=== PATIENT | male | born 1940 | race Caucasian/White ===

== ENCOUNTER → 2018-07-14 07:54 | Outpatient (CLI) | payer MEDICARE, OTHER, SELFPAY ==
[2018-07-14 09:01] LABS: Add Manual Diff / Slide Review NO; Basophils Percent Auto 1.1 % (0-2); Eosinophils Percent Auto 10.1 % (2-4); Hematocrit 45.9 % (41-53); Hemoglobin 15.5 g/dL (13.5-17.5); Lymphocytes Percent Auto 21.7 % (25-40); Mean Corpuscular HGB Conc 33.8 % (30-36); Mean Corpuscular Hemoglobin 30.4 PG (26-34); Monocytes Percent Auto 9.3 % (3-14); Neutrophils Absolute Auto 4200 /uL (3000-5900); Neutrophils Percent Auto 57.8 % (50-75); Platelet Count 275 X10^3/uL (150-400); Red Cell Distribution Width 15.2 % (11.6-14.8); White Blood Cell Count 7.2 X10^3/uL (4.5-11.0)
[2018-07-14 09:15] LABS: Alanine Aminotransferase 27 IU/L (21-72); Albumin 3.9 g/dL (3.5-5.0); Albumin Globulin Ratio 1.3 (1.0-2.8); Alkaline Phosphatase 93 U/L (38-126); Aspartate Aminotransferase 30 IU/L (17-59); BUN Creatinine Ratio 19.1 (6-22); Bilirubin Total 0.5 mg/dL (0.2-1.3); Blood Urea Nitrogen 21 mg/dL (9-20); Calcium 9.2 mg/dL (8.4-10.2); Carbon Dioxide 30 mmol/L (22-32); Chloride 103 mmol/L (98-107); Cholesterol 196 mg/dL (140-199); Estimated Glomerular Filt Rate > 60.0 mL/min (>60); Glucose 93 mg/dL (80-110); HDL Cholesterol 55 mg/dL (40-60); HEMOLYSIS < 15 (0-50); LDL Cholesterol Calculated 114 mg/dL (<100); Potassium 4.8 mmol/L (3.4-5.1); Sodium 141 mmol/L (137-145); Total Protein 6.9 g/dL (6.3-8.2); Triglycerides 135 mg/dL (35-150)
[2018-07-14 09:42] LABS: Prostate Specific Antigen Scrn 0.422 ng/mL (0.1-4.0)
== END ==
PROVIDERS: PCP Family Medicine; Visit Provider Family Medicine
DX: E78.5 Hyperlipidemia, unspecified (principal); N40.1 Benign prostatic hyperplasia with lower urinary tract symptoms; F52.21 Male erectile disorder; I10 Essential (primary) hypertension
CPT/HCPCS: 36415; 80053; 80061; 85025; G0103

== ENCOUNTER 2019-03-18 06:25 | Emergency (ER) | payer MEDICARE, OTHER, SELFPAY ==
[2019-03-18] VITALS (12 sets, daily range): BP systolic 75–128; BP diastolic 48–95; PULSE 57–188; RESP 16–20; TEMP 36.2; O2SAT 94–100; BMI 27.9
--- NOTE | 2019-03-18 06:37 | DI.RAD.S_ITS ---
PROCEDURE: XR CHEST 1V INDICATIONS: chest pain TECHNIQUE: One view of the chest was acquired. COMPARISON: [facility], , CHEST 2 VIEW, 10/14/2012, 14:27. FINDINGS: Surgical changes and devices: None. Lungs and pleura: No acute consolidation. Scattered subsegmental atelectasis and/or scarring . No pleural effusions or pneumothorax. Mediastinum: Mediastinal contours appear normal. Heart size is normal. Bones and chest wall: No suspicious bony lesions. Overlying soft tissues appear unremarkable. IMPRESSION: No acute disease Dictated by: Hans Valverde M.D. on 03/18/2019 at 9:14 Approved by: Hans Valverde M.D. on 03/18/2019 at 9:15
[2019-03-18] MEDS: ASPIRIN 81 MG TAB 324 MG PO (06:40)
[2019-03-18] MEDS: SODIUM CHLORIDE 0.9% 1,000 ML 1000 ML IV ×2 (06:40→08:01)
[2019-03-18] MEDS: AMIODARONE 150 MG/100 ML PIGGYBACK 600 MG IV (06:47)
--- NOTE | 2019-03-18 06:49 | ED.CHESTPAIN ---
HPI - Chest Pain <Marjorie Hare DO - Last Filed: 03/18/19 18:17> General Chief Complaint: Chest Pain Stated Complaint: burping since 3 am/4 bowel movemnts/chest tight Time Seen by Provider: 03/18/19 06:36 Source: patient Mode of arrival: ambulatory Limitations: no limitations History of Present Illness HPI narrative: A 70-year-old male who presents with chest pain and burping. He says it has been ongoing for the past few hours. He thinks it is just indigestion he has been burping quite a bit. Mild dizziness or lightheadedness. Noted to be in V-tach on the monitor MD complaint: chest pain Duration: constant Onset: during rest Pain location: substernal Related Data Allergies Allergy/AdvReac Type Severity Reaction Status Date / Time No Known Drug Allergies Allergy Verified 03/18/19 07:16 Review of Systems <Marjorie Hare DO - Last Filed: 03/18/19 18:17> Review of Systems GENERAL: Denies chills, fatigue, malaise, fever, sweats, travel HEENT: Denies sinus pain, ear pain, sore throat, difficulty swallowing, neck pain RESPIRATORY: Denies dyspnea, cough, wheezing, hemoptysis, sputum. CARDIOVASCULAR: See HPI GASTROINTESTINAL: Denies nausea, vomiting, abdominal pain, diarrhea, constipation, melena. : Denies dysuria, frequency, incontinence, hematuria, urinary retention, flank pain. MUSCULOSKELETAL: Denies weakness, joint pain, or bony pain SKIN: No rash, no erythema, no pruritus NEUROLOGIC: Denies weakness, dizziness, headache, numbness, change in speech, confusion PSYCHIATRIC: No concerning psychosocial issues. 12 point review of systems is negative except for those stated above and HPI PFSH <Marjorie Hare DO - Last Filed: 03/18/19 18:17> Medical History Hypertension (Acute) Social History Smoking Status: Never smoker Exam <Marjorie Hare DO - Last Filed: 03/18/19 18:17> Initial Vital Signs Initial Vital Signs: Vital Signs Pulse Rate 183 H 03/18/19 06:30 Respiratory Rate 20 03/18/19 06:30 Blood Pressure 75/56 L 03/18/19 06:30 Pulse Oximetry 99 03/18/19 06:30 GENERAL: Alert awake oriented to lessen elderly male no acute distress HEENT: Head atraumatic,EOMI, pupils reactive, face symmetric, moist mucous membranes CARDIOVASCULAR: Tachycardic regular RESPIRATORY: Breath sounds equal bilaterally, no wheezes rales or rhonchi. ABDOMEN: Soft, nontender. Normoactive bowel sounds all 4 quadrants. No guarding or rebound. : No CVA tenderness EXTREMITIES: Normal range of motion, no clubbing or edema. Neurovascularly intact NEUROLOGICAL: Alert and oriented x4.Normal gait and speech. Cranial nerves II through XII grossly intact. SKIN: Warm, dry, no laceration, no petechiae, no rashes or lesions. <Jaquan Polo DO - Last Filed: 03/18/19 08:56> Initial Vital Signs Initial Vital Signs: Vital Signs Pulse Rate 183 H 03/18/19 06:30 Respiratory Rate 20 03/18/19 06:30 Blood Pressure 75/56 L 03/18/19 06:30 Pulse Oximetry 99 03/18/19 06:30 Procedures <Marjorie Hare DO - Last Filed: 03/18/19 18:17> Cardioversion Consent Signed: No Indication: Emergent Cardiac rhythm prior to cardioversion: V-tach Stability: Unstable Number of attempts (shocks): 4 Joules used: 200 Additional Comments: Shock 1. 150J Shock 2, 3, 4:200J Procedural Sedation Patient Age: Patient is 5yrs or older Consent signed: No Time out performed: Yes Indication: cardioversion ASA Class: I Mallampati Airway Classification: Class I Preparation: monitoring analyst applied and IV secured IV Propofol dose (mg): 50 Intraservice time/total sedation time (min): 15 ED Sedation Level: Moderate (Concious) Patient Tolerated Procedure: Well Complications: none Course <DO Pj Lazcano Last Filed: 03/18/19 18:17> Orders Ordered: Discontinued Medications Aspirin (Aspirin Chew) 324 mg PO NOW ONE Stop: 03/18/19 06:37 Last Admin: 03/18/19 06:40 Dose: 324 mg Amiodarone HCl/Dextrose (Nexterone) 150 mg in 100 mls @ 600 mls/hr IV NOW ONE; Protocol Stop: 03/18/19 06:45 Last Infusion: 03/18/19 06:57 Dose: 0 mls/hr Admin: 03/18/19 06:47 Dose: 600 mls/hr Sodium Chloride (Normal Saline 0.9%) 1,000 mls @ 1,000 mls/hr IV CONT CORDELL Last Infusion: 03/18/19 07:56 Dose: 0 mls/hr Admin: 03/18/19 06:40 Dose: 1,000 mls/hr Amiodarone HCl/Dextrose (Nexterone) 360 mg in 200 mls @ 33.333 mls/hr IV NOW ONE; Protocol Stop: 03/18/19 12:38 Last Titration: 03/18/19 09:04 Dose: 60 mg/hr, 33.333 mls/hr Admin: 03/18/19 07:28 Dose: 60 mg/hr, 33.333 mls/hr Sodium Chloride (Normal Saline 0.9%) 1,000 mls @ 1,000 mls/hr IV BOLUS ONE Stop: 03/18/19 08:57 Last Infusion: 03/18/19 09:06 Dose: 125 mls/hr Infusion: 03/18/19 08:35 Dose: 125 mls/hr Admin: 03/18/19 08:01 Dose: 1,000 mls/hr Propofol (Diprivan) 50 mg IV NOW ONE Stop: 03/18/19 06:58 Last Admin: 03/18/19 07:19 Dose: 50 mg Vital Signs - 8 hr 03/18/19 06:30 03/18/19 06:45 03/18/19 07:00 Temperature Pulse Rate 183 H 188 H 162 H Respiratory Rate 20 16 18 Blood Pressure 75/56 L Blood Pressure [Right Arm] 128/95 H 105/62 Pulse Oximetry 99 03/18/19 07:15 03/18/19 07:30 03/18/19 07:40 Temperature Pulse Rate 73 71 70 Respiratory Rate 16 16 18 Blood Pressure Blood Pressure [Right Arm] 87/50 L 100/57 L 95/58 L Pulse Oximetry 94 99 100 03/18/19 07:48 03/18/19 07:53 03/18/19 08:10 Temperature Pulse Rate 67 63 63 Respiratory Rate 18 18 18 Blood Pressure Blood Pressure [Right Arm] 97/50 L 91/48 L 93/56 L Pulse Oximetry 100 100 98 03/18/19 08:12 03/18/19 08:27 03/18/19 08:48 Temperature 97.2 F L Pulse Rate 58 L 57 L Respiratory Rate 16 16 Blood Pressure Blood Pressure [Right Arm] 93/56 L 102/56 L Pulse Oximetry 100 99 <Jaquan Polo DO - Last Filed: 03/18/19 08:56> Course Narrative: received in sign out from Dr. Hare. No change during my oversight. Resting comfortably. I have performed an independent history and physical and have no significant additions to the chart. Expectant arrival of EMS at 0900 for transfer to [facility] Orders Ordered: Discontinued Medications Aspirin (Aspirin Chew) 324 mg PO NOW ONE Stop: 03/18/19 06:37 Last Admin: 03/18/19 06:40 Dose: 324 mg Amiodarone HCl/Dextrose (Nexterone) 150 mg in 100 mls @ 600 mls/hr IV NOW ONE; Protocol Stop: 03/18/19 06:45 Last Infusion: 03/18/19 06:57 Dose: 0 mls/hr Admin: 03/18/19 06:47 Dose: 600 mls/hr Sodium Chloride (Normal Saline 0.9%) 1,000 mls @ 1,000 mls/hr IV CONT CORDELL Last Infusion: 03/18/19 07:56 Dose: 0 mls/hr Admin: 03/18/19 06:40 Dose: 1,000 mls/hr Amiodarone HCl/Dextrose (Nexterone) 360 mg in 200 mls @ 33.333 mls/hr IV NOW ONE; Protocol Stop: 03/18/19 12:38 Last Titration: 03/18/19 09:04 Dose: 60 mg/hr, 33.333 mls/hr Admin: 03/18/19 07:28 Dose: 60 mg/hr, 33.333 mls/hr Sodium Chloride (Normal Saline 0.9%) 1,000 mls @ 1,000 mls/hr IV BOLUS ONE Stop: 03/18/19 08:57 Last Infusion: 03/18/19 09:06 Dose: 125 mls/hr Infusion: 03/18/19 08:35 Dose: 125 mls/hr Admin: 03/18/19 08:01 Dose: 1,000 mls/hr Propofol (Diprivan) 50 mg IV NOW ONE Stop: 03/18/19 06:58 Last Admin: 03/18/19 07:19 Dose: 50 mg Vital Signs - 8 hr 03/18/19 06:30 03/18/19 06:45 03/18/19 07:00 Temperature Pulse Rate 183 H 188 H 162 H Respiratory Rate 20 16 18 Blood Pressure 75/56 L Blood Pressure [Right Arm] 128/95 H 105/62 Pulse Oximetry 99 03/18/19 07:15 03/18/19 07:30 03/18/19 07:40 Temperature Pulse Rate 73 71 70 Respiratory Rate 16 16 18 Blood Pressure Blood Pressure [Right Arm] 87/50 L 100/57 L 95/58 L Pulse Oximetry 94 99 100 03/18/19 07:48 03/18/19 07:53 03/18/19 08:10 Temperature Pulse Rate 67 63 63 Respiratory Rate 18 18 18 Blood Pressure Blood Pressure [Right Arm] 97/50 L 91/48 L 93/56 L Pulse Oximetry 100 100 98 03/18/19 08:12 03/18/19 08:27 03/18/19 08:48 Temperature 97.2 F L Pulse Rate 58 L 57 L Respiratory Rate 16 16 Blood Pressure Blood Pressure [Right Arm] 93/56 L 102/56 L Pulse Oximetry 100 99 MDM - Chest Pain <Marjorie Hare DO - Last Filed: 03/18/19 18:17> Lab Data Attestation: I reviewed the patient's lab results. Result diagrams: 03/18/19 06:30 03/18/19 06:30 Lab Results 03/18/19 03/18/19 03/18/19 Range/Units 06:30 06:30 06:30 WBC 8.6 (4.5-11.0) X10^3/uL RBC 5.41 (4.5-5.9) X10^6/uL Hgb 15.8 (13.5-17.5) g/dL Hct 48.8 (41-53) % MCV 90.3 (80-100) fL MCH 29.2 (26-34) PG MCHC 32.4 (30-36) % RDW 15.3 H (11.6-14.8) % Plt Count 324 (150-400) X10^3/uL Neut % (Auto) 64.1 (50-75) % Lymph % (Auto) 20.6 L (25-40) % [place] % (Auto) 8.5 (3-14) % Eos % (Auto) 5.4 H (2-4) % Baso % (Auto) 1.4 (0-2) % Neut # (Auto) 5500 (6931-5495) /uL Lymph # (Auto) 1800 (8401-8933) /uL [place] # (Auto) 700 (0-900) /uL Eos # (Auto) 500 H (0-450) /uL Baso # (Auto) 100 (0-100) /uL PT 11.0 (10.1-12.7) SECONDS INR 1.0 (0.9-1.3) APTT 30 (26.4-36.2) SECONDS Sodium (137-145) mmol/L Potassium (3.4-5.1) mmol/L Chloride (98-107) mmol/L Carbon Dioxide (22-32) mmol/L BUN (9-20) mg/dL Creatinine (0.66-1.25) mg/dL Estimated GFR (>60) mL/min BUN/Creatinine Ratio (6-22) Glucose (80-110) mg/dL Calcium (8.4-10.2) mg/dL Total Bilirubin (0.2-1.3) mg/dL AST (17-59) IU/L ALT (21-72) IU/L Alkaline Phosphatase (38-126) U/L Total Creatine Kinase (55-170) U/L CK-MB (CK-2) CK-MB (CK-2) Rel Index Troponin I (0.01-0.034) ng/mL B-Natriuretic Peptide < 100 (<100) Total Protein (6.3-8.2) g/dL Albumin (3.5-5.0) g/dL Globulin (1.7-4.1) g/dL Albumin/Globulin Ratio (1.0-2.8) Lipase (23-300) U/L Urine Color Urine Appearance Urine pH (4.5-8.0) Ur Specific [place] (1.000-1.035) Urine Protein (Negative) Urine Glucose (UA) (Negative) g/dL Urine Ketones (NEGATIVE) Urine Occult Blood (Negative) Urine Nitrate (Negative) Urine Bilirubin (NEGATIVE) Urine Urobilinogen (0.2) E.U./dL Ur Leukocyte Esterase (NEGATIVE) Urine RBC (0-5/HPF) Urine WBC (0-5/HPF) Urine Bacteria (None) Hyaline Casts (None) Ur Culture Indicated? 03/18/19 03/18/19 Range/Units 06:30 08:43 WBC (4.5-11.0) X10^3/uL RBC (4.5-5.9) X10^6/uL Hgb (13.5-17.5) g/dL Hct (41-53) % MCV (80-100) fL MCH (26-34) PG MCHC (30-36) % RDW (11.6-14.8) % Plt Count (150-400) X10^3/uL Neut % (Auto) (50-75) % Lymph % (Auto) (25-40) % [place] % (Auto) (3-14) % Eos % (Auto) (2-4) % Baso % (Auto) (0-2) % Neut # (Auto) (8801-7772) /uL Lymph # (Auto) (2855-3500) /uL [place] # (Auto) (0-900) /uL Eos # (Auto) (0-450) /uL Baso # (Auto) (0-100) /uL PT (10.1-12.7) SECONDS INR (0.9-1.3) APTT (26.4-36.2) SECONDS Sodium 137 (137-145) mmol/L Potassium 3.9 (3.4-5.1) mmol/L Chloride 99 (98-107) mmol/L Carbon Dioxide 24 (22-32) mmol/L BUN 18 (9-20) mg/dL Creatinine 1.10 (0.66-1.25) mg/dL Estimated GFR > 60.0 (>60) mL/min BUN/Creatinine Ratio 16.4 (6-22) Glucose 179 H (80-110) mg/dL Calcium 9.1 (8.4-10.2) mg/dL Total Bilirubin 0.5 (0.2-1.3) mg/dL AST 32 (17-59) IU/L ALT 25 (21-72) IU/L Alkaline Phosphatase 108 (38-126) U/L Total Creatine Kinase 46 L (55-170) U/L CK-MB (CK-2) TNP CK-MB (CK-2) Rel Index TNP Troponin I 0.017 (0.01-0.034) ng/mL B-Natriuretic Peptide (<100) Total Protein 7.6 (6.3-8.2) g/dL Albumin 4.3 (3.5-5.0) g/dL Globulin 3.3 (1.7-4.1) g/dL Albumin/Globulin Ratio 1.3 (1.0-2.8) Lipase 182 (23-300) U/L Urine Color Yellow Urine Appearance Clear Urine pH 7.0 (4.5-8.0) Ur Specific [place] 1.015 (1.000-1.035) Urine Protein 1+ H (Negative) Urine Glucose (UA) Negative (Negative) g/dL Urine Ketones Negative (NEGATIVE) Urine Occult Blood Negative (Negative) Urine Nitrate Negative (Negative) Urine Bilirubin Negative (NEGATIVE) Urine Urobilinogen 0.2 (0.2) E.U./dL Ur Leukocyte Esterase Negative (NEGATIVE) Urine RBC 0-1/hpf (0-5/HPF) Urine WBC 0-1/hpf (0-5/HPF) Urine Bacteria Few (2-10) H (None) Hyaline Casts 0-1/lpf (None) Ur Culture Indicated? Cult not indicated Imaging Data Chest x-ray: Attestation: I personally reviewed and interpreted this imaging study as follows: My impression: No acute cardiopulmonary process ECG Data Attestation: I personally reviewed and interpreted this ECG as follows: Prior ECG tracings: not available for review Interpretation: EKG 1. V-tach rate 187 no priors to compare EKG 2. Normal sinus rhythm rate [address] changes MDM Narrative Medical decision making narrative: Dr. ding, cans vacuum tester updated on patient's symptoms test results Um is happy to see patient over at [facility] recommends admitting to hospitalist -accepts patient Patient signed out to Dr. Polo patient will be transferring to [facility] patient is now stable <Jaquan Polo DO - Last Filed: 03/18/19 08:56> Lab Data Lab Results 03/18/19 03/18/19 03/18/19 Range/Units 06:30 06:30 06:30 WBC 8.6 (4.5-11.0) X10^3/uL RBC 5.41 (4.5-5.9) X10^6/uL Hgb 15.8 (13.5-17.5) g/dL Hct 48.8 (41-53) % MCV 90.3 (80-100) fL MCH 29.2 (26-34) PG MCHC 32.4 (30-36) % RDW 15.3 H (11.6-14.8) % Plt Count 324 (150-400) X10^3/uL Neut % (Auto) 64.1 (50-75) % Lymph % (Auto) 20.6 L (25-40) % [place] % (Auto) 8.5 (3-14) % Eos % (Auto) 5.4 H (2-4) % Baso % (Auto) 1.4 (0-2) % Neut # (Auto) 5500 (5199-6547) /uL Lymph # (Auto) 1800 (8208-0746) /uL [place] # (Auto) 700 (0-900) /uL Eos # (Auto) 500 H (0-450) /uL Baso # (Auto) 100 (0-100) /uL PT 11.0 (10.1-12.7) SECONDS INR 1.0 (0.9-1.3) APTT 30 (26.4-36.2) SECONDS Sodium (137-145) mmol/L Potassium (3.4-5.1) mmol/L Chloride (98-107) mmol/L Carbon Dioxide (22-32) mmol/L BUN (9-20) mg/dL Creatinine (0.66-1.25) mg/dL Estimated GFR (>60) mL/min BUN/Creatinine Ratio (6-22) Glucose (80-110) mg/dL Calcium (8.4-10.2) mg/dL Total Bilirubin (0.2-1.3) mg/dL AST (17-59) IU/L ALT (21-72) IU/L Alkaline Phosphatase (38-126) U/L Total Creatine Kinase (55-170) U/L CK-MB (CK-2) CK-MB (CK-2) Rel Index Troponin I (0.01-0.034) ng/mL B-Natriuretic Peptide < 100 (<100) Total Protein (6.3-8.2) g/dL Albumin (3.5-5.0) g/dL Globulin (1.7-4.1) g/dL Albumin/Globulin Ratio (1.0-2.8) Lipase (23-300) U/L Urine Color Urine Appearance Urine pH (4.5-8.0) Ur Specific [place] (1.000-1.035) Urine Protein (Negative) Urine Glucose (UA) (Negative) g/dL Urine Ketones (NEGATIVE) Urine Occult Blood (Negative) Urine Nitrate (Negative) Urine Bilirubin (NEGATIVE) Urine Urobilinogen (0.2) E.U./dL Ur Leukocyte Esterase (NEGATIVE) Urine RBC (0-5/HPF) Urine WBC (0-5/HPF) Urine Bacteria (None) Hyaline Casts (None) Ur Culture Indicated? 03/18/19 03/18/19 Range/Units 06:30 08:43 WBC (4.5-11.0) X10^3/uL RBC (4.5-5.9) X10^6/uL Hgb (13.5-17.5) g/dL Hct (41-53) % MCV (80-100) fL MCH (26-34) PG MCHC (30-36) % RDW (11.6-14.8) % Plt Count (150-400) X10^3/uL Neut % (Auto) (50-75) % Lymph % (Auto) (25-40) % [place] % (Auto) (3-14) % Eos % (Auto) (2-4) % Baso % (Auto) (0-2) % Neut # (Auto) (0237-1272) /uL Lymph # (Auto) (5615-0517) /uL [place] # (Auto) (0-900) /uL Eos # (Auto) (0-450) /uL Baso # (Auto) (0-100) /uL PT (10.1-12.7) SECONDS INR (0.9-1.3) APTT (26.4-36.2) SECONDS Sodium 137 (137-145) mmol/L Potassium 3.9 (3.4-5.1) mmol/L Chloride 99 (98-107) mmol/L Carbon Dioxide 24 (22-32) mmol/L BUN 18 (9-20) mg/dL Creatinine 1.10 (0.66-1.25) mg/dL Estimated GFR > 60.0 (>60) mL/min BUN/Creatinine Ratio 16.4 (6-22) Glucose 179 H (80-110) mg/dL Calcium 9.1 (8.4-10.2) mg/dL Total Bilirubin 0.5 (0.2-1.3) mg/dL AST 32 (17-59) IU/L ALT 25 (21-72) IU/L Alkaline Phosphatase 108 (38-126) U/L Total Creatine Kinase 46 L (55-170) U/L CK-MB (CK-2) TNP CK-MB (CK-2) Rel Index TNP Troponin I 0.017 (0.01-0.034) ng/mL B-Natriuretic Peptide (<100) Total Protein 7.6 (6.3-8.2) g/dL Albumin 4.3 (3.5-5.0) g/dL Globulin 3.3 (1.7-4.1) g/dL Albumin/Globulin Ratio 1.3 (1.0-2.8) Lipase 182 (23-300) U/L Urine Color Yellow Urine Appearance Clear Urine pH 7.0 (4.5-8.0) Ur Specific [place] 1.015 (1.000-1.035) Urine Protein 1+ H (Negative) Urine Glucose (UA) Negative (Negative) g/dL Urine Ketones Negative (NEGATIVE) Urine Occult Blood Negative (Negative) Urine Nitrate Negative (Negative) Urine Bilirubin Negative (NEGATIVE) Urine Urobilinogen 0.2 (0.2) E.U./dL Ur Leukocyte Esterase Negative (NEGATIVE) Urine RBC 0-1/hpf (0-5/HPF) Urine WBC 0-1/hpf (0-5/HPF) Urine Bacteria Few (2-10) H (None) Hyaline Casts 0-1/lpf (None) Ur Culture Indicated? Cult not indicated Critical Care Time <Marjorie Hare DO - Last Filed: 03/18/19 18:17> Critical Care Time: Yes Total Critical Care Time: 30 Attestation: The high probability of a clinically significant, sudden or life threatening deterioration of the [cardiovascular] system(s) required my full and direct attention, intervention and personal management. The aggregate critical care time was 30 minutes. This time is in addition to time spent performing reported procedures but includes the following: [x] Data Review and interpretation [x] Patient assessment and monitoring of vital signs [x] Documentation [x] Medication orders and management Discharge Plan Departure Patient Disposition: [facility] Clinical Impression: Ventricular tachycardia Discharge Date/Time: 03/18/19 09:09 Interventions: ED Discharge Assessment Last Done: 03/18/19 09:06 Referrals: Shailesh Wilson MD [Primary Care Provider] -
[2019-03-18 06:52] LABS: Add Manual Diff / Slide Review NO; Basophils Absolute Auto 100 /uL (0-100); Basophils Percent Auto 1.4 % (0-2); Eosinophils Absolute Auto 500 /uL (0-450); Eosinophils Percent Auto 5.4 % (2-4); Hematocrit 48.8 % (41-53); Hemoglobin 15.8 g/dL (13.5-17.5); Lymphocytes Absolute Auto 1800 /uL (1100-4500); Lymphocytes Percent Auto 20.6 % (25-40); Mean Corpuscular HGB Conc 32.4 % (30-36); Mean Corpuscular Hemoglobin 29.2 PG (26-34); Mean Corpuscular Volume 90.3 fL (80-100); Monocytes Absolute Auto 700 /uL (0-900); Monocytes Percent Auto 8.5 % (3-14); Neutrophils Absolute Auto 5500 /uL (1500-7000); Neutrophils Percent Auto 64.1 % (50-75); Platelet Count 324 X10^3/uL (150-400); Red Blood Cell Count 5.41 X10^6/uL (4.5-5.9); Red Cell Distribution Width 15.3 % (11.6-14.8); White Blood Cell Count 8.6 X10^3/uL (4.5-11.0)
--- NOTE | 2019-03-18 06:52 | ED_ITS ---
HPI - Chest Pain <Marjorie Hare DO - Last Filed: 03/18/19 18:17> General Chief Complaint: Chest Pain Stated Complaint: burping since 3 am/4 bowel movemnts/chest tight Time Seen by Provider: 03/18/19 06:36 Source: patient Mode of arrival: ambulatory Limitations: no limitations History of Present Illness HPI narrative: A 70-year-old male who presents with chest pain and burping. He says it has been ongoing for the past few hours. He thinks it is just indigestion he has been burping quite a bit. Mild dizziness or lightheadedness. Noted to be in V-tach on the monitor MD complaint: chest pain Duration: constant Onset: during rest Pain location: substernal Related Data Allergies Allergy/AdvReac Type Severity Reaction Status Date / Time No Known Drug Allergies Allergy Verified 03/18/19 07:16 Review of Systems <Marjorie Hare DO - Last Filed: 03/18/19 18:17> Review of Systems GENERAL: Denies chills, fatigue, malaise, fever, sweats, travel HEENT: Denies sinus pain, ear pain, sore throat, difficulty swallowing, neck pain RESPIRATORY: Denies dyspnea, cough, wheezing, hemoptysis, sputum. CARDIOVASCULAR: See HPI GASTROINTESTINAL: Denies nausea, vomiting, abdominal pain, diarrhea, constipation, melena. : Denies dysuria, frequency, incontinence, hematuria, urinary retention, flank pain. MUSCULOSKELETAL: Denies weakness, joint pain, or bony pain SKIN: No rash, no erythema, no pruritus NEUROLOGIC: Denies weakness, dizziness, headache, numbness, change in speech, confusion PSYCHIATRIC: No concerning psychosocial issues. 12 point review of systems is negative except for those stated above and HPI PFSH <Marjorie Hare DO - Last Filed: 03/18/19 18:17> Medical History Hypertension (Acute) Social History Smoking Status: Never smoker Exam <Marjorie Hare DO - Last Filed: 03/18/19 18:17> Initial Vital Signs Initial Vital Signs: Vital Signs Pulse Rate 183 H 03/18/19 06:30 Respiratory Rate 20 03/18/19 06:30 Blood Pressure 75/56 L 03/18/19 06:30 Pulse Oximetry 99 03/18/19 06:30 GENERAL: Alert awake oriented to lessen elderly male no acute distress HEENT: Head atraumatic,EOMI, pupils reactive, face symmetric, moist mucous membranes CARDIOVASCULAR: Tachycardic regular RESPIRATORY: Breath sounds equal bilaterally, no wheezes rales or rhonchi. ABDOMEN: Soft, nontender. Normoactive bowel sounds all 4 quadrants. No guarding or rebound. : No CVA tenderness EXTREMITIES: Normal range of motion, no clubbing or edema. Neurovascularly intact NEUROLOGICAL: Alert and oriented x4.Normal gait and speech. Cranial nerves II through XII grossly intact. SKIN: Warm, dry, no laceration, no petechiae, no rashes or lesions. <Jaquan Polo DO - Last Filed: 03/18/19 08:56> Initial Vital Signs Initial Vital Signs: Vital Signs Pulse Rate 183 H 03/18/19 06:30 Respiratory Rate 20 03/18/19 06:30 Blood Pressure 75/56 L 03/18/19 06:30 Pulse Oximetry 99 03/18/19 06:30 Procedures <Marjorie Hare DO - Last Filed: 03/18/19 18:17> Cardioversion Consent Signed: No Indication: Emergent Cardiac rhythm prior to cardioversion: V-tach Stability: Unstable Number of attempts (shocks): 4 Joules used: 200 Additional Comments: Shock 1. 150J Shock 2, 3, 4:200J Procedural Sedation Patient Age: Patient is 5yrs or older Consent signed: No Time out performed: Yes Indication: cardioversion ASA Class: I Mallampati Airway Classification: Class I Preparation: pvc monitor applied and IV secured IV Propofol dose (mg): 50 Intraservice time/total sedation time (min): 15 ED Sedation Level: Moderate (Concious) Patient Tolerated Procedure: Well Complications: none Course <DO Pj Lazcano Last Filed: 03/18/19 18:17> Orders Ordered: Discontinued Medications Aspirin (Aspirin Chew) 324 mg PO NOW ONE Stop: 03/18/19 06:37 Last Admin: 03/18/19 06:40 Dose: 324 mg Amiodarone HCl/Dextrose (Nexterone) 150 mg in 100 mls @ 600 mls/hr IV NOW ONE; Protocol Stop: 03/18/19 06:45 Last Infusion: 03/18/19 06:57 Dose: 0 mls/hr Admin: 03/18/19 06:47 Dose: 600 mls/hr Sodium Chloride (Normal Saline 0.9%) 1,000 mls @ 1,000 mls/hr IV CONT CORDELL Last Infusion: 03/18/19 07:56 Dose: 0 mls/hr Admin: 03/18/19 06:40 Dose: 1,000 mls/hr Amiodarone HCl/Dextrose (Nexterone) 360 mg in 200 mls @ 33.333 mls/hr IV NOW ONE; Protocol Stop: 03/18/19 12:38 Last Titration: 03/18/19 09:04 Dose: 60 mg/hr, 33.333 mls/hr Admin: 03/18/19 07:28 Dose: 60 mg/hr, 33.333 mls/hr Sodium Chloride (Normal Saline 0.9%) 1,000 mls @ 1,000 mls/hr IV BOLUS ONE Stop: 03/18/19 08:57 Last Infusion: 03/18/19 09:06 Dose: 125 mls/hr Infusion: 03/18/19 08:35 Dose: 125 mls/hr Admin: 03/18/19 08:01 Dose: 1,000 mls/hr Propofol (Diprivan) 50 mg IV NOW ONE Stop: 03/18/19 06:58 Last Admin: 03/18/19 07:19 Dose: 50 mg Vital Signs - 8 hr 03/18/19 06:30 03/18/19 06:45 03/18/19 07:00 Temperature Pulse Rate 183 H 188 H 162 H Respiratory Rate 20 16 18 Blood Pressure 75/56 L Blood Pressure [Right Arm] 128/95 H 105/62 Pulse Oximetry 99 03/18/19 07:15 03/18/19 07:30 03/18/19 07:40 Temperature Pulse Rate 73 71 70 Respiratory Rate 16 16 18 Blood Pressure Blood Pressure [Right Arm] 87/50 L 100/57 L 95/58 L Pulse Oximetry 94 99 100 03/18/19 07:48 03/18/19 07:53 03/18/19 08:10 Temperature Pulse Rate 67 63 63 Respiratory Rate 18 18 18 Blood Pressure Blood Pressure [Right Arm] 97/50 L 91/48 L 93/56 L Pulse Oximetry 100 100 98 03/18/19 08:12 03/18/19 08:27 03/18/19 08:48 Temperature 97.2 F L Pulse Rate 58 L 57 L Respiratory Rate 16 16 Blood Pressure Blood Pressure [Right Arm] 93/56 L 102/56 L Pulse Oximetry 100 99 <Jaquan Polo DO - Last Filed: 03/18/19 08:56> Course Narrative: received in sign out from Dr. Hare. No change during my oversight. Resting comfortably. I have performed an independent history and physical and have no significant additions to the chart. Expectant arrival of EMS at 0900 for transfer to [facility] Orders Ordered: Discontinued Medications Aspirin (Aspirin Chew) 324 mg PO NOW ONE Stop: 03/18/19 06:37 Last Admin: 03/18/19 06:40 Dose: 324 mg Amiodarone HCl/Dextrose (Nexterone) 150 mg in 100 mls @ 600 mls/hr IV NOW ONE; Protocol Stop: 03/18/19 06:45 Last Infusion: 03/18/19 06:57 Dose: 0 mls/hr Admin: 03/18/19 06:47 Dose: 600 mls/hr Sodium Chloride (Normal Saline 0.9%) 1,000 mls @ 1,000 mls/hr IV CONT CORDELL Last Infusion: 03/18/19 07:56 Dose: 0 mls/hr Admin: 03/18/19 06:40 Dose: 1,000 mls/hr Amiodarone HCl/Dextrose (Nexterone) 360 mg in 200 mls @ 33.333 mls/hr IV NOW ONE; Protocol Stop: 03/18/19 12:38 Last Titration: 03/18/19 09:04 Dose: 60 mg/hr, 33.333 mls/hr Admin: 03/18/19 07:28 Dose: 60 mg/hr, 33.333 mls/hr Sodium Chloride (Normal Saline 0.9%) 1,000 mls @ 1,000 mls/hr IV BOLUS ONE Stop: 03/18/19 08:57 Last Infusion: 03/18/19 09:06 Dose: 125 mls/hr Infusion: 03/18/19 08:35 Dose: 125 mls/hr Admin: 03/18/19 08:01 Dose: 1,000 mls/hr Propofol (Diprivan) 50 mg IV NOW ONE Stop: 03/18/19 06:58 Last Admin: 03/18/19 07:19 Dose: 50 mg Vital Signs - 8 hr 03/18/19 06:30 03/18/19 06:45 03/18/19 07:00 Temperature Pulse Rate 183 H 188 H 162 H Respiratory Rate 20 16 18 Blood Pressure 75/56 L Blood Pressure [Right Arm] 128/95 H 105/62 Pulse Oximetry 99 03/18/19 07:15 03/18/19 07:30 03/18/19 07:40 Temperature Pulse Rate 73 71 70 Respiratory Rate 16 16 18 Blood Pressure Blood Pressure [Right Arm] 87/50 L 100/57 L 95/58 L Pulse Oximetry 94 99 100 03/18/19 07:48 03/18/19 07:53 03/18/19 08:10 Temperature Pulse Rate 67 63 63 Respiratory Rate 18 18 18 Blood Pressure Blood Pressure [Right Arm] 97/50 L 91/48 L 93/56 L Pulse Oximetry 100 100 98 03/18/19 08:12 03/18/19 08:27 03/18/19 08:48 Temperature 97.2 F L Pulse Rate 58 L 57 L Respiratory Rate 16 16 Blood Pressure Blood Pressure [Right Arm] 93/56 L 102/56 L Pulse Oximetry 100 99 MDM - Chest Pain <Marjorie Hare DO - Last Filed: 03/18/19 18:17> Lab Data Attestation: I reviewed the patient's lab results. Result diagrams: 03/18/19 06:30 03/18/19 06:30 Lab Results 03/18/19 03/18/19 03/18/19 Range/Units 06:30 06:30 06:30 WBC 8.6 (4.5-11.0) X10^3/uL RBC 5.41 (4.5-5.9) X10^6/uL Hgb 15.8 (13.5-17.5) g/dL Hct 48.8 (41-53) % MCV 90.3 (80-100) fL MCH 29.2 (26-34) PG MCHC 32.4 (30-36) % RDW 15.3 H (11.6-14.8) % Plt Count 324 (150-400) X10^3/uL Neut % (Auto) 64.1 (50-75) % Lymph % (Auto) 20.6 L (25-40) % [place] % (Auto) 8.5 (3-14) % Eos % (Auto) 5.4 H (2-4) % Baso % (Auto) 1.4 (0-2) % Neut # (Auto) 5500 (8880-7800) /uL Lymph # (Auto) 1800 (8981-7534) /uL [place] # (Auto) 700 (0-900) /uL Eos # (Auto) 500 H (0-450) /uL Baso # (Auto) 100 (0-100) /uL PT 11.0 (10.1-12.7) SECONDS INR 1.0 (0.9-1.3) APTT 30 (26.4-36.2) SECONDS Sodium (137-145) mmol/L Potassium (3.4-5.1) mmol/L Chloride (98-107) mmol/L Carbon Dioxide (22-32) mmol/L BUN (9-20) mg/dL Creatinine (0.66-1.25) mg/dL Estimated GFR (>60) mL/min BUN/Creatinine Ratio (6-22) Glucose (80-110) mg/dL Calcium (8.4-10.2) mg/dL Total Bilirubin (0.2-1.3) mg/dL AST (17-59) IU/L ALT (21-72) IU/L Alkaline Phosphatase (38-126) U/L Total Creatine Kinase (55-170) U/L CK-MB (CK-2) CK-MB (CK-2) Rel Index Troponin I (0.01-0.034) ng/mL B-Natriuretic Peptide < 100 (<100) Total Protein (6.3-8.2) g/dL Albumin (3.5-5.0) g/dL Globulin (1.7-4.1) g/dL Albumin/Globulin Ratio (1.0-2.8) Lipase (23-300) U/L Urine Color Urine Appearance Urine pH (4.5-8.0) Ur Specific [place] (1.000-1.035) Urine Protein (Negative) Urine Glucose (UA) (Negative) g/dL Urine Ketones (NEGATIVE) Urine Occult Blood (Negative) Urine Nitrate (Negative) Urine Bilirubin (NEGATIVE) Urine Urobilinogen (0.2) E.U./dL Ur Leukocyte Esterase (NEGATIVE) Urine RBC (0-5/HPF) Urine WBC (0-5/HPF) Urine Bacteria (None) Hyaline Casts (None) Ur Culture Indicated? 03/18/19 03/18/19 Range/Units 06:30 08:43 WBC (4.5-11.0) X10^3/uL RBC (4.5-5.9) X10^6/uL Hgb (13.5-17.5) g/dL Hct (41-53) % MCV (80-100) fL MCH (26-34) PG MCHC (30-36) % RDW (11.6-14.8) % Plt Count (150-400) X10^3/uL Neut % (Auto) (50-75) % Lymph % (Auto) (25-40) % [place] % (Auto) (3-14) % Eos % (Auto) (2-4) % Baso % (Auto) (0-2) % Neut # (Auto) (3555-0617) /uL Lymph # (Auto) (8530-4155) /uL [place] # (Auto) (0-900) /uL Eos # (Auto) (0-450) /uL Baso # (Auto) (0-100) /uL PT (10.1-12.7) SECONDS INR (0.9-1.3) APTT (26.4-36.2) SECONDS Sodium 137 (137-145) mmol/L Potassium 3.9 (3.4-5.1) mmol/L Chloride 99 (98-107) mmol/L Carbon Dioxide 24 (22-32) mmol/L BUN 18 (9-20) mg/dL Creatinine 1.10 (0.66-1.25) mg/dL Estimated GFR > 60.0 (>60) mL/min BUN/Creatinine Ratio 16.4 (6-22) Glucose 179 H (80-110) mg/dL Calcium 9.1 (8.4-10.2) mg/dL Total Bilirubin 0.5 (0.2-1.3) mg/dL AST 32 (17-59) IU/L ALT 25 (21-72) IU/L Alkaline Phosphatase 108 (38-126) U/L Total Creatine Kinase 46 L (55-170) U/L CK-MB (CK-2) TNP CK-MB (CK-2) Rel Index TNP Troponin I 0.017 (0.01-0.034) ng/mL B-Natriuretic Peptide (<100) Total Protein 7.6 (6.3-8.2) g/dL Albumin 4.3 (3.5-5.0) g/dL Globulin 3.3 (1.7-4.1) g/dL Albumin/Globulin Ratio 1.3 (1.0-2.8) Lipase 182 (23-300) U/L Urine Color Yellow Urine Appearance Clear Urine pH 7.0 (4.5-8.0) Ur Specific [place] 1.015 (1.000-1.035) Urine Protein 1+ H (Negative) Urine Glucose (UA) Negative (Negative) g/dL Urine Ketones Negative (NEGATIVE) Urine Occult Blood Negative (Negative) Urine Nitrate Negative (Negative) Urine Bilirubin Negative (NEGATIVE) Urine Urobilinogen 0.2 (0.2) E.U./dL Ur Leukocyte Esterase Negative (NEGATIVE) Urine RBC 0-1/hpf (0-5/HPF) Urine WBC 0-1/hpf (0-5/HPF) Urine Bacteria Few (2-10) H (None) Hyaline Casts 0-1/lpf (None) Ur Culture Indicated? Cult not indicated Imaging Data Chest x-ray: Attestation: I personally reviewed and interpreted this imaging study as follows: My impression: No acute cardiopulmonary process ECG Data Attestation: I personally reviewed and interpreted this ECG as follows: Prior ECG tracings: not available for review Interpretation: EKG 1. V-tach rate 187 no priors to compare EKG 2. Normal sinus rhythm rate [address] changes MDM Narrative Medical decision making narrative: Dr. ding, industrial maintenance tech updated on patient's symptoms test results Um is happy to see patient over at [facility] recommends admitting to hospitalist -accepts patient Patient signed out to Dr. Polo patient will be transferring to [facility] patient is now stable <Jaquan Polo DO - Last Filed: 03/18/19 08:56> Lab Data Lab Results 03/18/19 03/18/19 03/18/19 Range/Units 06:30 06:30 06:30 WBC 8.6 (4.5-11.0) X10^3/uL RBC 5.41 (4.5-5.9) X10^6/uL Hgb 15.8 (13.5-17.5) g/dL Hct 48.8 (41-53) % MCV 90.3 (80-100) fL MCH 29.2 (26-34) PG MCHC 32.4 (30-36) % RDW 15.3 H (11.6-14.8) % Plt Count 324 (150-400) X10^3/uL Neut % (Auto) 64.1 (50-75) % Lymph % (Auto) 20.6 L (25-40) % [place] % (Auto) 8.5 (3-14) % Eos % (Auto) 5.4 H (2-4) % Baso % (Auto) 1.4 (0-2) % Neut # (Auto) 5500 (3545-8621) /uL Lymph # (Auto) 1800 (7781-9973) /uL [place] # (Auto) 700 (0-900) /uL Eos # (Auto) 500 H (0-450) /uL Baso # (Auto) 100 (0-100) /uL PT 11.0 (10.1-12.7) SECONDS INR 1.0 (0.9-1.3) APTT 30 (26.4-36.2) SECONDS Sodium (137-145) mmol/L Potassium (3.4-5.1) mmol/L Chloride (98-107) mmol/L Carbon Dioxide (22-32) mmol/L BUN (9-20) mg/dL Creatinine (0.66-1.25) mg/dL Estimated GFR (>60) mL/min BUN/Creatinine Ratio (6-22) Glucose (80-110) mg/dL Calcium (8.4-10.2) mg/dL Total Bilirubin (0.2-1.3) mg/dL AST (17-59) IU/L ALT (21-72) IU/L Alkaline Phosphatase (38-126) U/L Total Creatine Kinase (55-170) U/L CK-MB (CK-2) CK-MB (CK-2) Rel Index Troponin I (0.01-0.034) ng/mL B-Natriuretic Peptide < 100 (<100) Total Protein (6.3-8.2) g/dL Albumin (3.5-5.0) g/dL Globulin (1.7-4.1) g/dL Albumin/Globulin Ratio (1.0-2.8) Lipase (23-300) U/L Urine Color Urine Appearance Urine pH (4.5-8.0) Ur Specific [place] (1.000-1.035) Urine Protein (Negative) Urine Glucose (UA) (Negative) g/dL Urine Ketones (NEGATIVE) Urine Occult Blood (Negative) Urine Nitrate (Negative) Urine Bilirubin (NEGATIVE) Urine Urobilinogen (0.2) E.U./dL Ur Leukocyte Esterase (NEGATIVE) Urine RBC (0-5/HPF) Urine WBC (0-5/HPF) Urine Bacteria (None) Hyaline Casts (None) Ur Culture Indicated? 03/18/19 03/18/19 Range/Units 06:30 08:43 WBC (4.5-11.0) X10^3/uL RBC (4.5-5.9) X10^6/uL Hgb (13.5-17.5) g/dL Hct (41-53) % MCV (80-100) fL MCH (26-34) PG MCHC (30-36) % RDW (11.6-14.8) % Plt Count (150-400) X10^3/uL Neut % (Auto) (50-75) % Lymph % (Auto) (25-40) % [place] % (Auto) (3-14) % Eos % (Auto) (2-4) % Baso % (Auto) (0-2) % Neut # (Auto) (4414-3484) /uL Lymph # (Auto) (9705-4003) /uL [place] # (Auto) (0-900) /uL Eos # (Auto) (0-450) /uL Baso # (Auto) (0-100) /uL PT (10.1-12.7) SECONDS INR (0.9-1.3) APTT (26.4-36.2) SECONDS Sodium 137 (137-145) mmol/L Potassium 3.9 (3.4-5.1) mmol/L Chloride 99 (98-107) mmol/L Carbon Dioxide 24 (22-32) mmol/L BUN 18 (9-20) mg/dL Creatinine 1.10 (0.66-1.25) mg/dL Estimated GFR > 60.0 (>60) mL/min BUN/Creatinine Ratio 16.4 (6-22) Glucose 179 H (80-110) mg/dL Calcium 9.1 (8.4-10.2) mg/dL Total Bilirubin 0.5 (0.2-1.3) mg/dL AST 32 (17-59) IU/L ALT 25 (21-72) IU/L Alkaline Phosphatase 108 (38-126) U/L Total Creatine Kinase 46 L (55-170) U/L CK-MB (CK-2) TNP CK-MB (CK-2) Rel Index TNP Troponin I 0.017 (0.01-0.034) ng/mL B-Natriuretic Peptide (<100) Total Protein 7.6 (6.3-8.2) g/dL Albumin 4.3 (3.5-5.0) g/dL Globulin 3.3 (1.7-4.1) g/dL Albumin/Globulin Ratio 1.3 (1.0-2.8) Lipase 182 (23-300) U/L Urine Color Yellow Urine Appearance Clear Urine pH 7.0 (4.5-8.0) Ur Specific [place] 1.015 (1.000-1.035) Urine Protein 1+ H (Negative) Urine Glucose (UA) Negative (Negative) g/dL Urine Ketones Negative (NEGATIVE) Urine Occult Blood Negative (Negative) Urine Nitrate Negative (Negative) Urine Bilirubin Negative (NEGATIVE) Urine Urobilinogen 0.2 (0.2) E.U./dL Ur Leukocyte Esterase Negative (NEGATIVE) Urine RBC 0-1/hpf (0-5/HPF) Urine WBC 0-1/hpf (0-5/HPF) Urine Bacteria Few (2-10) H (None) Hyaline Casts 0-1/lpf (None) Ur Culture Indicated? Cult not indicated Critical Care Time <Marjorie Hare DO - Last Filed: 03/18/19 18:17> Critical Care Time: Yes Total Critical Care Time: 30 Attestation: The high probability of a clinically significant, sudden or life threatening deterioration of the [cardiovascular] system(s) required my full and direct attention, intervention and personal management. The aggregate critical care time was 30 minutes. This time is in addition to time spent performing repo rted procedures but includes the following: [x] Data Review and interpretation [x] Patient assessment and monitoring of vital signs [x] Documentation [x] Medication orders and management Discharge Plan Departure Patient Disposition: [facility] Clinical Impression: Ventricular tachycardia Discharge Date/Time: 03/18/19 09:09 Interventions: ED Discharge Assessment Last Done: 03/18/19 09:06 Referrals: Shailesh Wilson MD [Primary Care Provider] -
[2019-03-18 06:59] LABS: PTT Partial Thromboplastin Tim 30 SECONDS (26.4-36.2)
[2019-03-18 07:01] LABS: Alanine Aminotransferase 25 IU/L (21-72); Albumin 4.3 g/dL (3.5-5.0); Albumin Globulin Ratio 1.3 (1.0-2.8); Alkaline Phosphatase 108 U/L (38-126); Aspartate Aminotransferase 32 IU/L (17-59); BUN Creatinine Ratio 16.4 (6-22); Bilirubin Total 0.5 mg/dL (0.2-1.3); Blood Urea Nitrogen 18 mg/dL (9-20); Calcium 9.1 mg/dL (8.4-10.2); Carbon Dioxide 24 mmol/L (22-32); Chloride 99 mmol/L (98-107); Creatine Kinase 46 U/L (55-170); Estimated Glomerular Filt Rate > 60.0 mL/min (>60); Globulin 3.3 g/dL (1.7-4.1); Glucose 179 mg/dL (80-110); HEMOLYSIS < 15 (0-50); Lipase 182 U/L (23-300); Potassium 3.9 mmol/L (3.4-5.1); Sodium 137 mmol/L (137-145); Total Protein 7.6 g/dL (6.3-8.2)
[2019-03-18 07:10] LABS: B Type Natriuretic Peptide < 100 (<100)
[2019-03-18 07:13] LABS: Troponin I 0.017 ng/mL (0.01-0.034)
[2019-03-18] MEDS: PROPOFOL 200 MG/20 ML VIAL 50 MG IV (07:19)
[2019-03-18] MEDS: AMIODARONE 360 MG/200 ML PIGGYBACK 33.333 MG IV (07:28)
--- NOTE | 2019-03-18 07:32 | PC.NURSE ---
pt alert and awake, c/o indigestion, monitor vt 165
--- NOTE | 2019-03-18 07:33 | PC.NURSE ---
0657 pt alert and awake, c/o indigestion, monitor vt 165. bp 84/56 amniodarone `150mg infusing over 10 minutes per manny rn. 0658 profopol 50[address] given [address] dr smith ivps right wrist. shock 150Joules remain vt 158 shock 200 J vt 158 shock 200 J vt 150 0700 shock 200 convert to sinus 88 bp 105/62 98% with 2lpm via nc, nsr 76 0707 bp 92/57 nsr 0 0714 pt awake, oriented to place and time, still has indigestion 88/51 hr 71 sat 98% 0728 amniodarone gtt at 33.3ml hr. aspirin 324mg given at 0647 by manny.
--- NOTE | 2019-03-18 07:50 | PC.NURSE ---
reporting burping feeling. monitor nsr 65
--- NOTE | 2019-03-18 08:16 | PC.NURSE ---
pt reports, at 3am, indigestion, burping. took tums,omeprazole,rajni,gas x. hx of dizziness a year ago. pt with burping causing vt
--- NOTE | 2019-03-18 08:47 | PC.NURSE ---
pt able to stand to use urinal, voided 150ml dark yellow urine.
[2019-03-18 08:56] LABS: Appearance Urine UA CLEAR; Bilirubin Urine UA NEGATIVE (NEGATIVE); Color Urine UA YELLOW; Glucose Urine UA NEGATIVE (Negative); Ketones Urine UA NEGATIVE (NEGATIVE); Leukocyte Esterase Urine UA NEGATIVE (NEGATIVE); Nitrite Urine UA NEGATIVE (Negative); Occult Blood Urine UA NEGATIVE (Negative); Protein Urine UA 1+ (Negative); Specific Gravity Urine UA 1.015 (1.000-1.035); Urobilinogen Urine UA 0.2 E.U./dL (0.2)
[2019-03-18 09:05] LABS: Bacteria Urine Few (2-10); Hyaline Casts Urine 0-1/LPF; RBC Urine 0-1/HPF (0-5/HPF); WBC Urine 0-1/HPF (0-5/HPF)
[2019-03-18 09:06] LABS: Culture Indicated Urine Cult Not Indicated
--- NOTE | 2019-03-18 09:08 | PC.NURSE ---
spouse taking personal belonging home, pt keeping cellphone and glasses, pair of pants.
--- NOTE | 2019-03-18 09:09 | PC.NURSE ---
pt left with pair of socks and shoes.
== END 2019-03-18 09:09 | disposition short-term general hospital (02) ==
PROVIDERS: Emergency Medicine; Emergency Provider Emergency Medicine; Family Provider Family Medicine; PCP Family Medicine
DX: I47.2 Ventricular tachycardia (principal); R07.9 Chest pain, unspecified; R42 Dizziness and giddiness
CPT/HCPCS: 36591; 71045; 80053; 81001; 82550; 83690; 83880; 84484; 85025; 85610; 85730; 92960; 93005; 96361; 96365; 96366; 96375; 99152; 99285; 99291; J0282; J2704

== ENCOUNTER → 2020-12-01 16:54 | Outpatient (CLI) | payer MEDICARE, OTHER, SELFPAY ==
[2020-12-01] MEDS: COVID-19 VACC #1, MRNA(MOD) 100 MCG/0.5 ML VIAL IM (17:00)
== END ==
PROVIDERS: Visit Provider Internal Medicine
DX: Z23 Encounter for immunization (principal)
CPT/HCPCS: 0011A; 91301

== ENCOUNTER → 2020-12-29 10:53 | Outpatient (CLI) | payer MEDICARE, OTHER, SELFPAY ==
[2020-12-29] MEDS: COVID-19 VACC #2, MRNA(MOD) 100 MCG/0.5 ML VIAL IM (10:57)
== END ==
PROVIDERS: Visit Provider Internal Medicine
DX: Z23 Encounter for immunization (principal)
CPT/HCPCS: 0012A; 91301

== ENCOUNTER → 2022-05-09 12:19 | Outpatient (CLI) | payer MEDICARE, OTHER, SELFPAY ==
--- NOTE | 2022-05-09 | DI.MRI.S_ITS ---
PROCEDURE: MR LUMBAR SPINE WO CON INDICATIONS: Pain in BILAT hip TECHNIQUE: Noncontrast sagittal T1 spin echo and T2 fast echo, sagittal STIR, and T2 fast spin echo through the lumbar spine. In cases with scoliosis, additional coronal T2 fast spin echo may be performed. COMPARISON: None. FINDINGS: Image quality: Excellent. Alignment and Curvature: There is normal bony alignment. Bone Marrow: Marrow is of normal overall signal. No acute vertebral body compression fractures. Spinal Cord: Conus medullaris terminates at the L1 level. Visualized cord demonstrates normal signal and size. Paraspinous Soft Tissues: No paravertebral masses. The left kidney has a 3 cm cyst. T12-L1: No significant disc bulge. The foramina and central canal are patent. L1-L2: Disc space narrowing and endplate degenerative changes with a diffuse disc bulge and facet hypertrophy causes severe bilateral foraminal stenosis and mild central canal stenosis. L2-L3: Disc space narrowing and endplate degenerative changes with facet arthrosis and disc osteophytes cause moderate bilateral foraminal stenosis and mild central canal stenosis. L3-L4: Disc space narrowing and endplate degenerative changes with facet arthrosis and disc osteophytes cause moderate right foraminal stenosis and severe left foraminal stenosis. There is ligamentum flavum hypertrophy. The central canal has mild central canal stenosis. L4-L5: Disc space narrowing and facet hypertrophy cause moderate to severe bilateral foraminal stenosis. There is ligamentum flavum hypertrophy. The central canal has moderate central canal stenosis. L5-S1: Disc space narrowing and facet hypertrophy with a diffuse disc bulge. The foramina have mild stenosis. The central canal is patent. IMPRESSION: Multilevel degenerative disc disease causing foraminal and central canal stenosis as above. Dictated by: Bjorn Lopez M.D. on 05/09/2022 at 14:31 Approved by: Bjorn Lopez M.D. on 05/09/2022 at 14:39
--- NOTE | 2022-05-09 | DI.MRI.S_ITS ---
PROCEDURE: MR HIP LT WO CON INDICATIONS: pain left hip TECHNIQUE: Noncontrast coronal T1 spin echo and STIR through the bony pelvis. Coronal and axial T2 fast spin echo with fat saturation, sagittal T1 spin echo, and oblique axial T2 fast spin echo with fat saturation through the hip. COMPARISON: [facility], MR, MR HIP RT WO CON, 05/09/2022, 13:17. FINDINGS: Image quality: Excellent. Bones and joints: Mild periarticular osteophyte formation at the left. Bone marrow of the pelvic ring and proximal femurs show normal signal throughout. No intraosseous lesions or fractures. No avascular necrosis of the femoral heads. The visualized lower lumbar spine appears normally aligned. Tendons and ligaments: Low-grade partial-thickness tears of the left gluteus medius and minimus tendons at the femoral insertion sites. The nearby proximal iliotibial band also appears intact. The iliopsoas tendon appears intact, without adjacent bursal fluid collections or evidence for impingement syndrome. The origin of the hamstring tendon is intact at the ischial tuberosity, as well as the associated sacrotuberous ligament. The straight and reflected heads of the rectus femoris muscle origin appear intact, as well as the conjoint tendon. The ligamentum teres appears intact where visualized. Labrum and cartilage: Diffuse degenerative tearing of the left hip labrum. Cartilage surface of the femoral head appears of normal thickness. The alpha angle of the femur is within normal limits at less than 55 degrees. Soft tissues: Visualized muscles demonstrate normal bulk and internal signal. Quadratus femoris muscle demonstrates no internal edema to suggest ischiofemoral impingement. The proximal sciatic neurovascular bundle appears normal adjacent to the hamstring tendons. No free pelvic fluid. Bladder wall thickness is normal. Genitourinary structures and bowel loops appear normal where visualized. IMPRESSION: 1. Partial-thickness tears of the left gluteus medius and minimus tendons at the femoral insertion sites. 2. 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 Dictated by: Konrad Arango M.D. on 05/09/2022 at 15:11 Transcribed by: DANIEL on 05/09/2022 at 15:12 Approved by: Konrad Arango M.D. on 05/09/2022 at 16:37
--- NOTE | 2022-05-09 | DI.MRI.S_ITS ---
PROCEDURE: MR HIP RT WO CON INDICATIONS: Pain in BILAT hip right TECHNIQUE: Noncontrast coronal T1 spin echo and STIR through the bony pelvis. Coronal and axial T2 fast spin echo with fat saturation, sagittal T1 spin echo, and oblique axial T2 fast spin echo with fat saturation through the hip. COMPARISON: None. FINDINGS: Image quality: Excellent. Bones and joints: Moderate right worse than left bilateral hip joint osteoarthritic changes are seen with superior joint space narrowing and subchondral sclerosis. There is no marrow edema. No intraosseous lesions or fractures. No avascular necrosis of the femoral heads. The visualized lower lumbar spine appears normally aligned. Tendons and ligaments: Left worse than right bilateral distal gluteus medius and minimus tendinosis and low-grade partial-thickness tear at their insertion on greater trochanter is seen, without associated muscle atrophy. The nearby proximal iliotibial band also appears intact. The iliopsoas tendon appears intact, without adjacent bursal fluid collections or evidence for impingement syndrome. The origin of the hamstring tendon is intact at the ischial tuberosity, as well as the associated sacrotuberous ligament. The straight and reflected heads of the rectus femoris muscle origin appear intact, as well as the conjoint tendon. The ligamentum teres appears intact where visualized. Labrum and cartilage: Diffuse thinning of articulating cartilages in right femoral head is seen with suggestion of extensive superior anterior right hip labral tear at 12 to 3 o'clock position. The alpha angle of the femur is within normal limits at less than 55 degrees. Soft tissues: Visualized muscles demonstrate normal bulk and internal signal. Quadratus femoris muscle demonstrates no internal edema to suggest ischiofemoral impingement. The proximal sciatic neurovascular bundle appears normal adjacent to the hamstring tendons. No free pelvic fluid. Bladder wall thickness is normal. Genitourinary structures and bowel loops appear normal where visualized. IMPRESSION: 1. 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 No fracture or dislocation. No evidence of avascular necrosis. 2. Left worse than right bilateral distal gluteus medius and minimus tendinosis and low-grade partial-thickness tear at their insertion on greater trochanters. No other muscle or tendon signal abnormality. 3. Suggestion of fairly extensive superior anterior right hip labral tear. Dictated by: Ronal Fuchs M.D. on 05/09/2022 at 16:45 Approved by: Ronal Fuchs M.D. on 05/09/2022 at 16:47
== END ==
PROVIDERS: PCP Family Medicine; Referring Provider Family Medicine; Visit Provider Family Medicine
DX: M16.0 Bilateral primary osteoarthritis of hip (principal); S76.012A Strain of muscle, fascia and tendon of left hip, initial encounter; S76.011A Strain of muscle, fascia and tendon of right hip, initial encounter; S73.102A Unspecified sprain of left hip, initial encounter; M51.16 Intervertebral disc disorders with radiculopathy, lumbar region; M51.17 Intervertebral disc disorders with radiculopathy, lumbosacral region; M48.061 Spinal stenosis, lumbar region without neurogenic claudication; M48.07 Spinal stenosis, lumbosacral region; M25.551 Pain in right hip; M25.552 Pain in left hip
CPT/HCPCS: 72148; 73721

== ENCOUNTER → 2022-05-10 12:03 | Outpatient (CLI) | payer MEDICARE, OTHER, SELFPAY ==
--- NOTE | 2022-05-10 12:05 | DI.MRI.S_ITS ---
PROCEDURE: MR KNEE RT WO CON INDICATIONS: bilateral knee pain TECHNIQUE: Noncontrast sagittal PD fast spin echo and T2 fast spin echo with fat saturation, sagittal 3-D FLASH with fat saturation; coronal T1 spin echo and PD fast spin echo with fat saturation, and axial PD fast spin echo with fat saturation through the knee. COMPARISON: [facility], MR, MR KNEE LT WO CON, 05/10/2022, 13:10. Non FINDINGS: Image quality: Excellent. Menisci: There is fragmentation and amorphous high signal intensity throughout the anterior horn, body, and posterior horn medial meniscus, indicating severe complex tearing. There is amorphous and linear horizontal and oblique high signal intensity within the anterior horn, body, and posterior horn lateral meniscus, demonstrating superior and inferior articular surface extension, indicating complex tearing. Cruciate ligaments: There is posterior bowing of the anterior cruciate ligament which is moderately attenuated. Posterior cruciate ligament is intact. Medial structures: The medial collateral ligament appears intact. There is a small amount of fluid deep to the medial collateral ligament. Visualized portions of the pes anserinus tendons appear normal. No abnormal bursal fluid. Lateral structures: The lateral collateral ligament, long and short heads of the biceps femoris tendon appear intact. The popliteus tendon appears normal. Iliotibial band appears normal. Anterior structures: The quadriceps and patellar tendons appear intact. Patellar alignment is normal. No femoral trochlear dysplasia or ventral trochlear prominence. No edema in the infrapatellar fat pad. Bones and cartilage: No bone marrow contusions or fractures. Subchondral cysts within the distal femur and proximal tibia. Moderate subchondral degenerative marrow edema within the anterior weight-bearing aspects of the medial femoral condyle and medial tibial plateau, as well as the mid weight-bearing aspects of the lateral femoral condyle and lateral tibial plateau. Moderate tricompartmental periarticular osteophyte formation. Severe articular cartilage loss diffusely overlies the weight-bearing aspects of the medial femoral condyle and medial tibial plateau. Mild articular cartilage loss diffusely overlies the weight-bearing aspects of the lateral femoral condyle and lateral tibial plateau. Mild articular cartilage loss diffusely overlies the medial and lateral patellar facets. Joint space: There is a small knee joint effusion, multiple intra-articular loose bodies, a small ganglion cyst along the popliteus, and a small complex Nash's cyst. Normal appearing synovial plicae are incidentally noted. IMPRESSION: 1. Tricompartmental osteoarthritis with associated articular cartilage loss. 2. Complex tearing of the medial and lateral menisci. 3. Partial-thickness anterior cruciate ligament tear. 4. Medial collateral ligament bursitis. 5. Knee joint effusion, Nash's cyst, ganglion cyst along the popliteus, and multiple small intra-articular loose bodies. Dictated by: Konrad Arango M.D. on 05/10/2022 at 14:03 Transcribed by: DANIEL on 05/10/2022 at 14:06 Approved by: Konrad Arango M.D. on 05/10/2022 at 15:59
--- NOTE | 2022-05-10 12:05 | DI.MRI.S_ITS ---
PROCEDURE: MR KNEE LT WO CON INDICATIONS: bilateral knee pain TECHNIQUE: Noncontrast sagittal PD fast spin echo and T2 fast spin echo with fat saturation, sagittal 3-D FLASH with fat saturation; coronal T1 spin echo and PD fast spin echo with fat saturation, and axial PD fast spin echo with fat saturation through the knee. COMPARISON: None. FINDINGS: Image quality: Excellent. Menisci: There is amorphous and linear oblique high signal intensity traversing the inner, middle, and peripheral thirds of the medial meniscal body, anterior horn, and posterior horn, indicating complex tearing. There is linear oblique and horizontal high signal intensity traversing the inner, middle, and peripheral thirds of the lateral meniscal body, demonstrating superior articular surface extension, indicating complex tearing. Cruciate ligaments: The anterior and posterior cruciate ligaments appear intact. Medial structures: The medial collateral ligament appears intact. Visualized portions of the pes anserinus tendons appear normal. No abnormal bursal fluid. Lateral structures: The lateral collateral ligament, long and short heads of the biceps femoris tendon appear intact. The popliteus tendon appears normal. Iliotibial band appears normal. Anterior structures: The quadriceps and patellar tendons appear intact. Patellar alignment is normal. No femoral trochlear dysplasia or ventral trochlear prominence. No edema in the infrapatellar fat pad. Bones and cartilage: No bone marrow contusions or fractures. Mild tricompartmental periarticular osteophyte formation. Severe articular cartilage loss diffusely overlies the weight-bearing aspects of the medial femoral condyle and medial tibial plateau. Mild articular cartilage loss overlies the medial and lateral patellar facets. Joint space: There is a small knee joint effusion and a small Nash's cyst. Normal appearing synovial plicae are incidentally noted. IMPRESSION: 1. Complex tearing of the medial and lateral menisci. 2. Medial and patellofemoral compartment articular cartilage loss. 3. Small knee joint effusion and Nash's cyst. Dictated by: Konrad Arango M.D. on 05/10/2022 at 13:11 Approved by: Konrad Arango M.D. on 05/10/2022 at 13:13
== END ==
PROVIDERS: PCP Family Medicine; Referring Provider Family Medicine; Visit Provider Family Medicine
DX: S83.272A Complex tear of lateral meniscus, current injury, left knee, initial encounter (principal); S83.232A Complex tear of medial meniscus, current injury, left knee, initial encounter; S83.271A Complex tear of lateral meniscus, current injury, right knee, initial encounter; S83.231A Complex tear of medial meniscus, current injury, right knee, initial encounter; M25.462 Effusion, left knee; M25.461 Effusion, right knee; M71.22 Synovial cyst of popliteal space [Baker], left knee; M71.21 Synovial cyst of popliteal space [Baker], right knee; S83.511A Sprain of anterior cruciate ligament of right knee, initial encounter; M17.11 Unilateral primary osteoarthritis, right knee; M71.561 Other bursitis, not elsewhere classified, right knee; M67.461 Ganglion, right knee; M25.562 Pain in left knee; M25.561 Pain in right knee
CPT/HCPCS: 73721

== ENCOUNTER → 2023-03-13 12:09 | Outpatient (CLI) | payer MEDICARE, OTHER, SELFPAY ==
--- NOTE | 2023-03-13 | DI.ECHO.S_ITS ---
[facility]+ [facility] +---------+ : : [address] : : : : [id number] : : : : Phone: [phone]+ Echocardiogram Report + + :Name: FRANKIE CYR Study Date: 03/13/2023 Height: 68 in : :[facility] ReadingLocation: Weight: 175 lb : : Gender: Male BSA: 1.9 m2 : :: 1940 Age: 82 yrs BP: 146/82 mmHg: :Reason For Study: ASCENDING AORTA ENLARGEMENT : :Ordering Physician: EVER, : :SARITA Performed By: Nano Rodríguez : :Referring: SARITA ALBERT : + + Interpretation Summary 1) Normal left ventricular size and thickness with low normal systolic function (EF 50-55%). 2) Normal right ventricular size with low nromal function. 3) There is mild aortic stenosis (valve area 1.6cm2, mean gradient 15mmHg, severity ratio 0.36). There is mild aortic regurgitation. 4) The ascending aorta is mildly enlarged at 4.2cm. 5) Compared to the Echo done 03/18/2019, mild aortic stenosis is present on this study. Procedure: A two-dimensional transthoracic echocardiogram with color flow and Doppler was performed. The study quality was technically adequate. Comparison is made with the echocardiogram of 03/18/2019. The patient was in sinus rhythm with heart rates between 66-75 bpm during the exam. Left Ventricle: The left ventricle is normal in size and wall thickness. The ejection fraction is estimated to be 50-55%. There are no focal wall motion abnormalities. Right Ventricle: The right ventricle is normal size. Right ventricular systolic function is at the lower limits of normal. Atria: The left atrial size is normal. Right atrial size is normal. There is no Doppler evidence for an interatrial shunt. Mitral Valve: There is mild mitral annular calcification. The mitral valve leaflets appear mildly thickened, but open well. There is trace mitral regurgitation. Aortic Valve: The aortic valve is moderately calcified. There is moderate to severely reduced leaflet mobility. A bicuspid aortic valve cannot be excluded. The peak aortic velocity is 2.5 m/sec. The aortic valve mean gradient is 15 mmHg. There is mild aortic stenosis. There is mild aortic regurgitation. Tricuspid Valve: The tricuspid valve is normal in structure and function. There is a trace or physiologic amount of tricuspid regurgitation. Pulmonic Valve: The pulmonic valve is not well visualized. There is no pulmonic valvular regurgitation. Great Vessels: The aortic root is borderline dilated. The ascending aorta is mildly enlarged. The IVC is of normal diameter and collapses greater than 50% with a sniff. This suggests a low right atrial pressure of 3 mm Hg. Pericardium/ Pleura There is a trivial pericardial effusion noted. There is no pleural effusion. MMode/2D Measurements & Calculations LVIDd: 4.9 cm LVOT diam: 2.4 cm LVIDs: 3.8 cm Ao root diam: 4.0 cm FS: 23.8 % asc Aorta Diam: 4.2 cm IVSd: 0.72 cm Ao Arch Diam (Prox Trans): 3.4 cm LVPWd: 0.83 cm LV ruiz. diameter/BSA (cm/m^2): 2.6 LV sys. diameter/BSA (cm/m^2): 2.0 LA A2 area: 17.6 cm2 RA long axis: 5.0 cm LA A4 area: 14.9 cm2 RA area: 15.3 cm2 LA length (vol): 4.9 cm RA vol: 40.3 ml LA vol: 45.0 ml RA : 20.9 ml/m2 LA vol index: 23.3 ml/m2 IVC diam: 1.2 cm RVD1 (basal): 3.5 cm RVD2 (mid): 3.0 cm TAPSE: 1.6 cm Doppler Measurements & Calculations Ao V2 max: 245.5 cm/sec LVOT Max Eric: 82.4 cm/sec Ao V2 mean: 185.6 cm/sec LV V1 max P.7 mmHg Ao max P.0 mmHg LV V1 VTI: 19.0 cm Ao mean P.3 mmHg ANGELITA(I,D): 1.6 cm2 Ao V2 VTI: 53.6 cm ANGELITA(V,D): 1.5 cm2 sev ratio: 0.36 ANGELITA indexed to BSA (cm^2/m^2): 0.83 AI P1/2t: 654.6 msec AI dec slope: 176.9 cm/sec2 MV E max eric: 49.0 cm/sec SV(LVOT): 85.8 ml MV A max eric: 110.2 cm/sec MV E/A: 0.44 Med Peak E' Eric: 5.5 cm/sec E/E' med: 8.9 Lat Peak E' Eric: 8.8 cm/sec E/E' lat: 5.6 E/e' average: 7.2 MV dec time: 0.36 sec Reading Physician:04:52 PM
== END ==
PROVIDERS: PCP Family Medicine; Referring Provider Internal Medicine Cardiovascular Disease; Visit Provider Internal Medicine Cardiovascular Disease
DX: I08.0 Rheumatic disorders of both mitral and aortic valves (principal); I77.89 Other specified disorders of arteries and arterioles
CPT/HCPCS: 93306

== ENCOUNTER → 2023-08-22 12:59 | Outpatient (CLI) | payer MEDICARE, OTHER, SELFPAY ==
--- NOTE | 2023-08-22 13:02 | DI.MRI.S_ITS ---
PROCEDURE: MR SHOULDER RT WO CON INDICATIONS: RIGHT SHOULDER PAIN TECHNIQUE: Noncontrast oblique coronal T2 fast spin echo with fat saturation, oblique sagittal T1 spin echo and T2 fast spin echo with fat saturation, axial T1 spin echo and T2 fast spin echo with fat saturation through the shoulder. COMPARISON: [facility] [place], CR, XR SHOULDER 2+ VIEWS RIGHT, 08/18/2023, 14:30. FINDINGS: Image quality: Excellent. Rotator cuff: There is moderate grade intrasubstance and bursal surface tearing of the anterior supraspinatus tendon at the humeral insertion site. Low-grade intrasubstance tearing of the mid and posterior supraspinatus tendon at the humeral insertion site. Moderate supraspinatus atrophy. Low-grade articular surface tearing of the anterior, mid, and posterior infraspinatus tendon at the humeral insertion site extending to the musculotendinous junction. Teres minor is intact. There is moderate grade diffuse tearing of the subscapularis tendon at the humeral insertion site extending to the musculotendinous junction. Bones and bursae: No bone marrow contusions or fractures. Moderate acromioclavicular and glenohumeral r joint degeneration. The acromion demonstrates conventional anatomy, without an os acromiale. No pathologic subacromial-subdeltoid or subcoracoid bursal fluid is present. Capsule and soft tissues: Large glenohumeral joint effusion with multiple intra-articular loose bodies. Severe diffuse degenerative labral tearing is present. The long head of the biceps tendon demonstrates partial-thickness tearing. The rotator interval appears normal, without fibrosis. The coracohumeral ligament is normal in thickness. IMPRESSION: 1. Partial-thickness tears of the rotator cuff as described above. No full-thickness rotator cuff tear. 2. Acromioclavicular and glenohumeral joint osteoarthritis. 3. Partial thickness biceps tendon tear. 4. Glenohumeral joint effusion with intra-articular loose bodies. Dictated by: Konrad Arango M.D. on 08/22/2023 at 14:38 Approved by: Konrad Arango M.D. on 08/22/2023 at 14:41
== END ==
PROVIDERS: PCP Family Medicine; Referring Provider Orthopaedic Surgery; Visit Provider Orthopaedic Surgery
DX: S46.911A Strain of unspecified muscle, fascia and tendon at shoulder and upper arm level, right arm, initial encounter (principal); M75.111 Incomplete rotator cuff tear or rupture of right shoulder, not specified as traumatic; M19.011 Primary osteoarthritis, right shoulder; S46.211A Strain of muscle, fascia and tendon of other parts of biceps, right arm, initial encounter; M25.411 Effusion, right shoulder; M24.011 Loose body in right shoulder
CPT/HCPCS: 73221

== ENCOUNTER 2024-12-16 15:17 | Inpatient (IN) | payer MEDICARE, OTHER, SELFPAY ==
[2024-12-16 15:19] VITALS: BP 164/96; PULSE 95; RESP 22; TEMP 37; O2SAT 96; BMI 26.6
--- NOTE | 2024-12-16 15:29 | EKG_ITS ---
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
--- NOTE | 2024-12-16 15:29 | DI.RAD.S_ITS ---
PROCEDURE: XR CHEST 1V INDICATIONS: cough TECHNIQUE: One view of the chest was acquired. COMPARISON: [facility], CR, XR CHEST 1V, 03/18/2019, 6:44. FINDINGS: Surgical changes and devices: None. Lungs and pleura: Patchy bibasilar atelectasis. No pleural effusions or pneumothorax. Mediastinum: Mediastinal contours appear normal. Heart size is normal. Bones and chest wall: No suspicious bony lesions. Overlying soft tissues appear unremarkable. IMPRESSION: Patchy bibasilar atelectasis. Dictated by: Bhaskar Lanza M.D. on 12/16/2024 at 16:14 Approved by: Bhaskar Lanza M.D. on 12/16/2024 at 16:15
[2024-12-16 16:03] LABS: Prothrombin Time 11.2 SECONDS (9.4-12.5)
[2024-12-16 16:06] LABS: PTT Partial Thromboplastin Tim 33 SECONDS (25.1-36.5)
[2024-12-16 16:08] LABS: Alanine Aminotransferase 28 IU/L (<50); Albumin 4.2 g/dL (3.5-5.0); Albumin Globulin Ratio 1.3 (1.0-2.8); Alkaline Phosphatase 88 U/L (38-126); Aspartate Aminotransferase 47 IU/L (17-59); BUN Creatinine Ratio 21.1 (6-22); Bilirubin Total 0.6 mg/dL (0.2-1.3); Blood Urea Nitrogen 19 mg/dL (9-20); Calcium 8.8 mg/dL (8.4-10.2); Carbon Dioxide 20 mmol/L (22-32); Chloride 105 mmol/L (98-107); Creatine Kinase 70 U/L (55-170); Estimated Glomerular Filt Rate > 60 mL/min (>60); Globulin 3.2 g/dL (1.7-4.1); Glucose 126 mg/dL (80-110); HEMOLYSIS 38 (0-50); Lipase 160 U/L (23-300); Potassium 4.6 mmol/L (3.4-5.1); Sodium 134 mmol/L (137-145); Total Protein 7.4 g/dL (6.3-8.2)
[2024-12-16 16:10] LABS: Add Manual Diff / Slide Review NO; Basophils Absolute Auto 100 /uL (0-100); Basophils Percent Auto 0.9 % (0-2); Eosinophils Absolute Auto 500 /uL (0-450); Eosinophils Percent Auto 6.7 % (2-4); Hematocrit 45.8 % (41-53); Lymphocytes Absolute Auto 1400 /uL (1100-4500); Lymphocytes Percent Auto 17.6 % (25-40); Mean Corpuscular HGB Conc 32.7 % (30-36); Mean Corpuscular Hemoglobin 31.7 PG (26-34); Monocytes Absolute Auto 700 /uL (0-900); Monocytes Percent Auto 8.3 % (3-14); Neutrophils Absolute Auto 5200 /uL (1500-7000); Neutrophils Percent Auto 66.5 % (50-75); Platelet Count 296 X10^3/uL (150-400); Red Blood Cell Count 4.72 X10^6/uL (4.5-5.9); Red Cell Distribution Width 16.3 % (11.6-14.8); White Blood Cell Count 7.8 X10^3/uL (4.5-11.0)
[2024-12-16 16:20] LABS: NT-proBNP (BNP-Adult 18+) 10700 pg/mL (<450); Troponin I < 0.012 ng/mL (0.01-0.034)
--- NOTE | 2024-12-16 17:39 | PC.NURSE ---
patient ambulated to the bathroom and then came back and stated that he needed some oxygen. He was placed on the monitor and his 02 saturation was 96 on RA. His breathing was labored and fast at 30. After a few minutes of rest his breathing settled and his RR went back down to 14 and he reported feeling better.
[2024-12-16 17:54] VITALS: PULSE 95; RESP 18; O2SAT 97
[2024-12-16] MEDS: ALBUTEROL 2.5 MG/3 ML NEB (ADULT) INH (17:54)
[2024-12-16 18:08] LABS: COVID-19 CEPHEID 4-PLEX PCR Negative (Negative); Influenza A - CEPHEID Flu A NEGATIVE (NEGATIVE); Influenza B - CEPHEID Flu B NEGATIVE (NEGATIVE); Respiratory Syncytial Virus Negative (Negative)
[2024-12-16 18:24] VITALS: PULSE 93; RESP 20; O2SAT 97
--- NOTE | 2024-12-16 19:21 | ED_ITS ---
HPI - SOB/Dyspnea General Chief Complaint: Shortness of Breath/Dyspnea Stated Complaint: SOB Time Seen by Provider: 12/16/24 19:21 Source: patient Mode of arrival: Wheelchair Limitations: no limitations History of Present Illness HPI Narrative: 84-year-old male past medical history of hypertension comes into the ED from home for evaluation of worsening shortness of breath states it has been ongoing persistent for the several months but worsening over the past week. States he has a inhaler has been using it without any relief, patient also complaining of some chest tightness but no chest pain. Denies any other symptoms such as headache visual disturbances fever chills nausea vomiting abdominal pain or any other GI/ symptoms at this time. 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 Related Data Home Medications Medication Instructions Recorded Confirmed albuterol sulfate 90 mcg/actuation 1 - 2 puff inhalation Q4H PRN 12/16/24 12/16/24 aerosol inhaler wheezing amiodarone 100 mg tablet 50 mg PO DAILY 12/16/24 12/16/24 enalapril maleate 20 mg tablet 20 mg PO DAILY 12/16/24 12/16/24 metoprolol succinate 25 mg 25 mg PO DAILY 12/16/24 tablet,extended release 24 hr Allergies Allergy/AdvReac Type Severity Reaction Status Date / Time No Known Drug Allergies Allergy Verified 03/18/19 07:16 Review of Systems Review of Systems Narrative: General: Denies fever, chills, weight loss HEENT: Denies headache, eye drainage, eye irritation, head trauma, sore throat, voice change Cardiovascular: Denies any chest pain, palpitations, shortness of breath, tachycardia Respiratory: Positive shortness of breath, cough, denies wheeze, stridor GI/: Denies any abdominal pain, nausea, vomiting, diarrhea, bright red blood per rectum, melanotic stools, urinary frequency, urinary retention, dysuria, hematuria MSK: Denies any joint pain, muscle pains, swelling Skin: Denies any rashes, lesions, discoloration Neuro: Denies any headache, lightheadedness, dizziness, fainting, weakness Psych: Denies SI/HI Patient History Medical History (Updated 12/16/24 @ 19:35 by Constantino Anderson DO) Hypertension Social History (Reviewed 03/18/19 @ 06:51 by JEFFERSON Lazcano Smoking Status: Never smoker Smoking Status: Never smoker alcohol intake frequency: a few times a month Exam Narrative Exam Narrative: General: Cooperative, comfortable, well-developed, not in acute distress HEENT: Normocephalic, atraumatic, PERRLA, normal sclera, eyelids normal, Neck: Active full range of motion, atraumatic Chest: Normal to inspection, negative crepitus, no overlying erythema ecchymosis Respiratory: Patient tachypneic with conversation speaking in short sentences protecting airway, rales noted to bilateral lower lung villafana, not in acute respiratory distress, clear to auscultation bilaterally negative cough, wheeze, tachypnea, rhonchi Cardiology: Regular rate rhythm negative gallop, murmur, rubs GI/: Normal to inspection, soft, nonrigid, no tenderness to palpation, exam deferred MSK: Full range of active range of motion of all 4 extremities, atraumatic Skin: No rashes lesions noted Neuro: Alert awake oriented x3, moves all 4 extremities spontaneously, cranial nerves intact, able to answer all questions appropriately follows commands appropriately Psych: Cooperative, negative suicidal or homicidal ideations Initial Vital Signs Initial Vital Signs: Vital Signs Temperature 98.6 F 12/16/24 15:19 Pulse Rate 95 H 12/16/24 15:19 Respiratory Rate 22 12/16/24 15:19 Blood Pressure 164/96 H 12/16/24 15:19 Pulse Oximetry 96 12/16/24 15:19 Oxygen Delivery Method Room Air 12/16/24 15:19 Course Orders Ordered: ED Orders 12/16/24 15:29 XR chest 1V Stat EKG-12 Lead Stat 12/16/24 15:48 Complete Blood Count AUTO DIFF Stat Comprehensive Metabolic Panel Stat Lipase Stat Magnesium Stat NT-proBNP (BNP-Adult 18+) Stat PTT Partial Thromboplastin [place] Stat Prothrombin Time INR Stat Troponin & CK Cardiac Panel Stat 12/16/24 17:04 Covid-19 + FLU A/B + RSV - PCR Stat Discontinued Medications Albuterol (Albuterol 2.5 Mg/3 Ml Neb (Adult)) 2.5 mg INH NOW ONE Stop: 12/16/24 17:48 Last Admin: 12/16/24 17:54 Dose: 2.5 mg Documented By: LIBBY Aspirin (Aspirin 81 Mg Chew Tab) 324 mg PO NOW ONE Stop: 12/16/24 15:30 Last Admin: 12/16/24 16:20 Dose: Not Given Documented By: MILLICENT Furosemide (Furosemide 40 Mg/4 Ml Vial) 20 mg IV NOW ONE Stop: 12/16/24 19:32 Last Admin: 12/16/24 19:41 Dose: 20 mg Documented By: BOB Vital Signs Vital signs: Vital Signs - 8 hr 12/16/24 15:19 12/16/24 18:24 Temperature 98.6 F Pulse Rate 95 H 93 H Respiratory Rate 22 20 Blood Pressure 164/96 H Pulse Oximetry 96 97 Oxygen Delivery Method Room Air MDM - SOB/Dyspnea Differential Diagnosis Differential diagnosis: Likely congestive heart failure, community acquired pneumonia and other (ACS, COVID, flu) Lab Data 12/16/24 15:48 12/16/24 15:48 Labs: Lab Results 12/16/24 12/16/24 Range/Units 15:48 17:04 WBC 7.8 (4.5-11.0) X10^3/uL RBC 4.72 (4.5-5.9) X10^6/uL Hgb 15.0 (13.5-17.5) g/dL Hct 45.8 (41-53) % MCV 97.0 (80-100) fL MCH 31.7 (26-34) PG MCHC 32.7 (30-36) % RDW 16.3 H (11.6-14.8) % Plt Count 296 (150-400) X10^3/uL Neut % (Auto) 66.5 (50-75) % Lymph % (Auto) 17.6 L (25-40) % [place] % (Auto) 8.3 (3-14) % Eos % (Auto) 6.7 H (2-4) % Baso % (Auto) 0.9 (0-2) % Neut # (Auto) 5200 (2587-9184) /uL Lymph # (Auto) 1400 (3714-2665) /uL [place] # (Auto) 700 (0-900) /uL Eos # (Auto) 500 H (0-450) /uL Baso # (Auto) 100 (0-100) /uL PT 11.2 (9.4-12.5) SECONDS INR 1.0 (0.9-1.3) APTT 33 (25.1-36.5) SECONDS Sodium 134 L (137-145) mmol/L Potassium 4.6 (3.4-5.1) mmol/L Chloride 105 (98-107) mmol/L Carbon Dioxide 20 L (22-32) mmol/L BUN 19 (9-20) mg/dL Creatinine 0.90 (0.66-1.25) mg/dL Estimated GFR > 60 (>60) mL/min BUN/Creatinine Ratio 21.1 (6-22) Glucose 126 H (80-110) mg/dL Calcium 8.8 (8.4-10.2) mg/dL Magnesium 2.0 (1.6-2.3) mg/dL Total Bilirubin 0.6 (0.2-1.3) mg/dL AST 47 (17-59) IU/L ALT 28 (<50) IU/L Alkaline Phosphatase 88 (38-126) U/L Total Creatine Kinase 70 (55-170) U/L Troponin I < 0.012 (0.01-0.034) ng/mL NT-Pro-B Natriuret Pep 95693 H (<450) pg/mL Total Protein 7.4 (6.3-8.2) g/dL Albumin 4.2 (3.5-5.0) g/dL Globulin 3.2 (1.7-4.1) g/dL Albumin/Globulin Ratio 1.3 (1.0-2.8) Lipase 160 (23-300) U/L SARS-CoV-2 (PCR) Negative (Negative) Influenza A (RT-PCR) Flu a negative (NEGATIVE) Influenza B (RT-PCR) Flu b negative (NEGATIVE) RSV (PCR) Negative (Negative) Imaging Data Chest x-ray: Radiologist's Impression: [address] [address] XRay Report Signed Patient: Ryan Bledsoe MR#: [id number] : 1940 Acct:[id number] Age/Sex: 84 / M Date of Service: 12/16/24 Loc: ED Accession Number: [id number] Procedure: XR chest 1V Ordering Provider: Stephanie Verde D.O. PROCEDURE: XR CHEST 1V INDICATIONS: cough TECHNIQUE: One view of the chest was acquired. COMPARISON: [facility], CR, XR CHEST 1V, 03/18/2019, 6:44. FINDINGS: Surgical changes and devices: None. Lungs and pleura: Patchy bibasilar atelectasis. No pleural effusions or pneumothorax. Mediastinum: Mediastinal contours appear normal. Heart size is normal. Bones and chest wall: No suspicious bony lesions. Overlying soft tissues appear unremarkable. IMPRESSION: Patchy bibasilar atelectasis. ECG Data Interpretation: EKG interpreted ED physician sinus at 89 beats per minute QTC 501 occasional PVCs noted normal axis nonspecific ST changes no STEMI MDM Narrative Medical decision making narrative: 84-year-old male with history of hypertension presents for chest pressure shortness of breath ongoing persistent for several months but worsening over the past week. Patient had lab work imaging performed here chest x-ray showing patchy bibasilar atelectasis most likely effusion secondary to patient's new onset CHF given BNP at 10,700, on exam patient tachypneic with conversation patient does drop down to 86% with conversation however if patient not talking patient pulse ox 95% on room air. Given new onset CHF will provide only 20 mg IV Lasix patient will be admitted for stress test echo for his new onset CHF, patient understands agrees with this plan The patient's management plan was discussed Dr. Ro, who agrees to admit the patient to their service and assumes care of this patient at this time. Full admission orders will be placed by the primary team. Discharge Plan Departure Patient Disposition: Admitted as Observation Clinical Impression: New onset of congestive heart failure
[2024-12-16] MEDS: FUROSEMIDE 40 MG/4 ML VIAL 20 MG IV (19:41)
[2024-12-16 20:40] VITALS: BP 150/94; PULSE 63; RESP 18; TEMP 36.1; O2SAT 93
--- NOTE | 2024-12-16 20:40 | DI.ECHO.S_ITS ---
[facility] : : [address] : [facility] : : [place], : : [place] [address] : : Phone: [phone] Echocardiogram Report + + :Name: FRANKIE CYR Study Date: 12/17/2024 Height: 67 in : [facility] ReadingLocation: Weight: 170 lb : : Gender: Male BSA: 1.9 m2 : :: 1940 Age: 84 yrs BP: 136/88 mmHg: :Reason For Study: CONGESTIVE HEART FAILURE : :Ordering Physician: BRAYAN, : :DARRELL Gabriel Performed By: Jamshid Kat : :Referring: DARRELL SCHMIDT : + + Interpretation Summary The patient was in atrial fibrillation with heart rates between 83-95 bpm during the exam. The ejection fraction is estimated to be 25-30%. The right ventricle is normal in size and function. The right ventricular systolic pressure is estimated to be at least 38 mmHg based on an estimated right atrial pressure of 3 mm Hg. The left atrium is severely dilated. The right atrium is moderately dilated. There is moderate mitral regurgitation. There is mild aortic regurgitation. There is moderate to severe aortic stenosis. The ascending aorta is mildly enlarged. Procedure: A two-dimensional transthoracic echocardiogram with color flow and Doppler was performed. The study quality was technically good. Comparison is made with the echocardiogram of 03/13/2023. The patient was in atrial fibrillation with heart rates between 83-95 bpm during the exam. Left Ventricle: The left ventricle is normal in size. Left ventricular wall thickness is mildly increased. There is no ventricular septal defect visualized. The ejection fraction is estimated to be 25-30%. There is severe global hypokinesis of the left ventricle. Diastolic function could not be accurately assessed due to atrial fibrillation. Right Ventricle: The right ventricle is normal in size and function. Atria: The left atrium is severely dilated. The right atrium is moderately dilated. There is no Doppler evidence for an interatrial shunt. Mitral Valve: There is mild mitral annular calcification. The mitral valve leaflets appear mildly thickened, but open well. The mitral valve leaflets are mildly calcified. There is moderate mitral regurgitation. Aortic Valve: There is mild aortic valve sclerosis. The aortic valve is trileaflet. There is moderate aortic stenosis. The peak aortic velocity is 3.37 m/sec. The aortic valve mean gradient is 27.2 mmHg. The calculated aortic valve area is 0.9 cm2. There is mild aortic regurgitation. Tricuspid Valve: The tricuspid valve leaflets are thin and pliable. There is trace tricuspid regurgitation. The right ventricular systolic pressure is estimated to be at least 38 mmHg based on an estimated right atrial pressure of 3 mm Hg. Pulmonic Valve: The pulmonic valve is not well seen, but is grossly normal. There is no pulmonic valvular regurgitation. Great Vessels: The aortic root is mildly dilated. The ascending aorta is mildly enlarged. The pulmonary artery is not well visualized, but is probably normal size. The IVC is of normal diameter and collapses greater than 50% with a sniff. This suggests a low right atrial pressure of 3 mm Hg. Pericardium/ Pleura There is no pericardial effusion. MMode/2D Measurements & Calculations LVIDd: 6.0 cm AoV Openin.1 cm LVIDs: 5.2 cm LVOT diam: 2.2 cm IVSd: 1.2 cm Ao root diam: 3.8 cm LVPWd: 1.0 cm asc Aorta Diam: 4.2 cm LV ruiz. diameter/BSA (cm/m^2): 3.2 Ao Arch Diam (Prox Trans): 2.6 cm LV sys. diameter/BSA (cm/m^2): 2.8 FS: 13.3 % EPSS: 1.7 cm LA A2 area: 28.0 cm2 RA long axis: 5.6 cm LA A4 area: 23.7 cm2 RA area: 19.1 cm2 LA length (vol): 6.2 cm RA vol: 55.4 ml LA vol: 91.6 ml RA : 29.3 ml/m2 LA vol index: 48.5 ml/m2 RVD1 (basal): 3.9 cm IVC diam: 1.8 cm RVD2 (mid): 3.4 cm TAPSE: 2.8 cm Doppler Measurements & Calculations Ao V2 max: 336.5 cm/sec LVOT Max Eric: 77.6 cm/sec Ao V2 mean: 251.5 cm/sec LV V1 max P.4 mmHg Ao V2 VTI: 71.8 cm LV V1 VTI: 16.8 cm Ao max P.3 mmHg Ao mean P.2 mmHg ANGELITA(I,D): 0.88 cm2 MV E max eric: 89.1 cm/sec ANGELITA(V,D): 0.87 cm2 MV A max eric: 84.9 cm/sec ANGELITA indexed to BSA (cm^2/m^2): 0.47 MV E/A: 1.0 sev ratio: 0.23 Med Peak E' Eric: 6.5 cm/sec E/E' med: 13.7 Lat Peak E' Eric: 5.8 cm/sec E/E' lat: 15.5 E/e' average: 14.6 MV dec time: 0.18 sec TR max eric: 297.2 cm/sec TR max P.3 mmHg PA V2 max: 66.3 cm/sec SV(LVOT): 63.1 ml PA V2 mean: 50.4 cm/sec PA mean P.1 mmHg PA pr(Accel): 24.2 mmHg Reading Physician:04:43 PM
[2024-12-16 20:48] VITALS: BMI 25.9
[2024-12-17] VITALS (9 sets, daily range): BP systolic 128–146; BP diastolic 73–98; PULSE 60–107; RESP 16–22; TEMP 36–36.6; O2SAT 95–100
[2024-12-17] MEDS: ALBUTEROL 2.5 MG/3 ML NEB (ADULT) INH (00:59)
[2024-12-17 06:15] LABS: BUN Creatinine Ratio 18.7 (6-22); Blood Urea Nitrogen 17 mg/dL (9-20); Calcium 8.7 mg/dL (8.4-10.2); Carbon Dioxide 22 mmol/L (22-32); Chloride 105 mmol/L (98-107); Estimated Glomerular Filt Rate > 60 mL/min (>60); Glucose 105 mg/dL (80-110); HEMOLYSIS 15 (0-50); Magnesium 1.9 mg/dL (1.6-2.3); Potassium 3.7 mmol/L (3.4-5.1); Sodium 133 mmol/L (137-145)
[2024-12-17 07:15] LABS: Thyroid Stimulating Hormone 0.676 uIU/mL (0.47-4.68)
--- NOTE | 2024-12-17 08:42 | PM.HP.1 ---
History of Present Illness History of Present Illness Date Patient Seen: 12/17/24 Time Patient Seen: 08:42 Chief complaint: SOB Narrative: CC: short of breath Ptpresented to ED with acute shortness of breath worsening iwith exertion he does have a histroy of copd but his inhaler had no effect Evaluation demonstrated elevated BNP - echo today show dilated atrium, decreased EF, and severe aortic stenosis. He is improving with initial diuresis and is stable on room air feeling alert today. PT/OT eval pending. Otherwise he has been feeling ok no change in appetite compliant with meds I do note recent passing of his partner ~6mo ago he does now live alone PENDING SALE TO [facility] Medical History (Updated 12/16/24 @ 19:35 by Constantino Anderson DO) Hypertension Social History household members: none Smoking Status: Never smoker alcohol intake: current Meds Home Medications and Allergies Home Medications Medication Instructions Recorded Confirmed Type albuterol sulfate 90 mcg/actuation 1 - 2 puff inhalation Q4H PRN 12/16/24 12/16/24 History aerosol inhaler wheezing amiodarone 100 mg tablet 50 mg PO DAILY 12/16/24 12/16/24 History enalapril maleate 20 mg tablet 20 mg PO DAILY 12/16/24 12/16/24 History metoprolol succinate 25 mg 25 mg PO DAILY 12/16/24 12/16/24 History tablet,extended release 24 hr Allergies Allergy/AdvReac Type Severity Reaction Status Date / Time No Known Drug Allergies Allergy Verified 03/18/19 07:16 Review of Systems Review of Systems Narrative: all systems reviewed and negative except as otherwise documented in HPI Exam Vital Signs (past 8 hours): - 12/17/24 02:20 12/17/24 08:00 Temperature 97.8 F 97.7 F Pulse Rate 104 H 107 H Respiratory Rate 22 16 Blood Pressure 131/82 146/98 H Pulse Oximetry 96 96 Oxygen Flow Rate 0 0 Oxygen Delivery Method Room Air Oxygen Flow Rate 0 Narrative Exam Narrative: alert sitting up in bed eating breakfast Const Other: well developed well nourished Resp Other: bibasilar mild crackles, moving air well Cardio Other: regular rate, ejection murmur, minimal pedal edema GI Other: soft nontender active bowel sounds Neuro Other: alert awake fully oriented and conversant Objective Labs 12/16/24 15:48 12/17/24 05:46 Labs: Laboratory Results - last 24 hr 12/16/24 12/16/24 12/17/24 15:48 17:04 05:46 WBC 7.8 RBC 4.72 Hgb 15.0 Hct 45.8 MCV 97.0 MCH 31.7 MCHC 32.7 RDW 16.3 H Plt Count 296 Neut % (Auto) 66.5 Lymph % (Auto) 17.6 L [place] % (Auto) 8.3 Eos % (Auto) 6.7 H Baso % (Auto) 0.9 Neut # (Auto) 5200 Lymph # (Auto) 1400 [place] # (Auto) 700 Eos # (Auto) 500 H Baso # (Auto) 100 PT 11.2 INR 1.0 APTT 33 Sodium 134 L 133 L Potassium 4.6 3.7 Chloride 105 105 Carbon Dioxide 20 L 22 BUN 19 17 Creatinine 0.90 0.91 Estimated GFR > 60 > 60 BUN/Creatinine Ratio 21.1 18.7 Glucose 126 H 105 Calcium 8.8 8.7 Magnesium 2.0 1.9 Total Bilirubin 0.6 AST 47 ALT 28 Alkaline Phosphatase 88 Total Creatine Kinase 70 Troponin I < 0.012 NT-Pro-B Natriuret Pep 29814 H Total Protein 7.4 Albumin 4.2 Globulin 3.2 Albumin/Globulin Ratio 1.3 Lipase 160 TSH 0.676 SARS-CoV-2 (PCR) Negative Influenza A (RT-PCR) Flu a negative Influenza B (RT-PCR) Flu b negative RSV (PCR) Negative Assessment & Plan Assessment & Plan narrative: #acute shortness of breath #new dx of acute on chronic systolic and diastolic congestive heart failure decreased EF ~25% new since normal echo 2022 - elevated BNP with dilation on echo Stable on room air today after light diuresis with lasix 20 bid IV - which will continue feeling better able to get up and move around better PT/OT eval tomorrow see what his needs are recommend lasix po for discharge #Severe aortic stenosis cross sectional area down to 0.9% new since 2022 will need cardiology consult as outpt diureses and continue metoprolol #Hypertension #Hx of SVT Treated for SVT with amio for over 10 years - when he stopped in 2018 he had WCT treated with DCCCV X4 last visit with cardiology 2022 Dr. Albert stable BP normal rate continue home enalapril and metoprolol succ low dose Dispo: admit obsv, consideration for discharge home with hh tomorrow after diuresis/PT eval with po lasix and cardiology f/up PCP: Felipe Code: Full Diet: salt restricted DVT: Lovenox Time-Based Coding :: [TOTAL MINUTES] spent with patient and on the chart (including review of chart, obtaining history, exam, reviewing outside data, placing orders, documenting exam and treatment plan, and counseling patient) on [DATE]. Quality VTE Deep Vein Thrombosis/Pulmonary Embolism Present on Admission: No
[2024-12-17] MEDS: METOPROLOL ER 25 MG TABLET PO (09:41)
[2024-12-17] MEDS: AMIODARONE 200 MG TABLET 50 MG PO (09:41)
[2024-12-17] MEDS: ENOXAPARIN 40 MG/0.4 ML SYRINGE SUBCUT (09:43)
[2024-12-17] MEDS: ENALAPRIL 5 MG TABLET 20 MG PO (09:44)
[2024-12-17] MEDS: FUROSEMIDE 20 MG/2 ML VIAL IV ×2 (09:44→20:47)
--- NOTE | 2024-12-17 14:05 | CM.DANOTE ---
DCP Assessment Note: Pt is a 84yo male, resident of [place], is admitted for new CHF. Pt lives in an apartment alone. Pt's Primary Care Provider is Dr. Jairo Wang and insurance is [facility], [facility]. Reviewed chart and discussed with multidisciplinary team pt's medical status and initial discharge needs. Per Provider, pt awaiting echocardiogram. DCP met w/patient at bedside; introduced self and role. Patient was found in bed, alert and oriented, cooperative with assessment. Pt confirmed living situation, being independent baseline. Pt expressed preference in discharge home when medically cleared. Pt has no prior history of home health or SNF Rehab. Pt declines any other social needs at this time. Plan: Anticipating discharge home when medically cleared, pt transported himself to the ED and feels comfortable with driving home. CM team will follow closely for coordination of discharge plans. LUIZ Main Discharge Planning/Care Management CM Discharge Assessment Start: 12/17/24 13:29 Freq: Status: Active Protocol: Document 12/17/24 13:29 MW (Rec: 12/17/24 13:58 MW [id number]) Discharge Planning Assessment Assigned Mirror Specialist RAFAEL Staples DPJEN/Assigned Designee Name Lulú Bernal, Friend Contact Information [phone] Advance Directives? Yes Advance Directives on File No History Provided By Patient,Medical Record Has Patient been admitted in last 30 No days? Prior Living Arrangements Apartment/Condo Comment [place] Household Members none Type of transporation used prior to Drives own vehicle admit Independent with ADL's Yes Is patient alert and oriented? Yes Caregiver for Another No DME Already Rented / Owned FWW / Walker,Other Comment stair climber to assist with getting him to second floor of home where he lives. Patient/Family Preference [facility] Barriers to Discharge No Medicare Choice List Provided No Whiteboard Updated in Patient Room with Yes name and ext. # of Mirror Specialist Review Status In Process Please Provide Date Initial DC 12/17/24 Assessment Was Performed Next Review Type Continued Stay Review
--- NOTE | 2024-12-17 16:19 | OT.IPNOTE ---
Pt's nurse states pt is independent in the room. Spoke to pt and pt states have no OT needs. Able pt information fo energy conservation, no charge. discharge OT eval orders as pt refusing.
[2024-12-18] VITALS (11 sets, daily range): BP systolic 95–133; BP diastolic 53–88; PULSE 56–100; RESP 16–20; TEMP 35.9–36.4; O2SAT 95–99
[2024-12-18 05:43] LABS: NT-proBNP (BNP-Adult 18+) 13600 pg/mL (<450)
--- NOTE | 2024-12-18 09:39 | P.PN_ITS ---
Subjective Subjective Date Patient Seen: 12/18/24 Time Patient Seen: 09:39 Interval history: Patient seen and evaluated this morning discussed care with nurse. Patient did well overnight. Some congestion a little bit. He is up walking to the bathroom no Coates catheter. Lovenox for DVT prophylaxis. No significant shortness of breath some trace lower extremity edema. Vital signs have been good he has been a little bit tachycardic throughout the evening on and off not significantly hypotensive. He says he is eating well he is going P a little bit more bowel movements are normal. Reviewed labs and testing ejection fraction echocardiogram 25-30% aortic stenosis moderate to severe. Exam Vital Signs (past 8 hours): - 12/18/24 04:00 12/18/24 08:00 Temperature 96.8 F L 97.3 F L Pulse Rate 100 H 96 H Respiratory Rate 18 16 Blood Pressure 133/83 110/82 Pulse Oximetry 98 95 Oxygen Flow Rate 0 0 Oxygen Delivery Method Room Air Oxygen Flow Rate 0 Narrative Exam Narrative: Gen.: Alert no apparent distress HEENT: Pupils equal round and reactive or mucosa is moist Cardio: Regular rate and rhythm with mild systolic heart murmur intermittent irregularity Respiratory: No wheezes or crackles decreased breath sounds at bases Abdomen: Soft nontender Extremities: Trace lower extremity edema Neurologic: Grossly intact. Objective Labs 12/16/24 15:48 12/17/24 05:46 Labs: Laboratory Results - last 24 hr 12/18/24 05:01 NT-Pro-B Natriuret Pep [id number] H [facility] Medical History (Updated 12/18/24 @ 09:45 by Jamshid West MD) Hypertension Social History household members: none Smoking Status: Never smoker alcohol intake: current Assessment & Plan Assessment and plan (1) Systolic heart failure: Status: Acute Plan Acute systolic congestive heart failure. Patient's echocardiogram shows significantly reduced systolic function. Patient on Lasix MICHAEL inhibitor beta- diana. Patient elevated BNP recheck electrolytes this morning echocardiogram was removed. 40 mg of IV Lasix this morning. Start on spironolactone this afternoon. Increase rate of metoprolol from 25-50 is he is having tachycardia. Continue with amiodarone. Anticipate discharge tomorrow. Aortic stenosis moderate to severe. Patient with moderate to severe aortic stenosis. Patient with moderate to severe disease. Will need cardiac evaluation to discuss next steps with significant valvular heart disease. This is of course a contributing factor to his congestive heart failure and severe decreased cardiac output. Hypertension. Patient is hypertensive. Mild adjustment to his metoprolol. Start spironolactone. To help with increased cardiac output and reduction of risk of heart failure exacerbation. DVT prophylaxis with Lovenox Disposition and plan. Continue with diuresis with IV Lasix for his severe systolic heart failure with reduced cardiac output. Adjustment of medication today by increase metoprolol and spironolactone. Laboratory testing to monitor closely kidney function potassium probably home tomorrow Time-Based Coding :: [TOTAL MINUTES] spent with patient and on the chart (including review of chart, obtaining history, exam, reviewing outside data, placing orders, documenting exam and treatment plan, and counseling patient) on [DATE]. Quality VTE Deep Vein Thrombosis/Pulmonary Embolism Present on Admission: No PROFEE Graphic Arts Technician Document charge(s): Yes Charge Codes Subsequent inpatient/observation care: [id number]
[2024-12-18 09:55] LABS: BUN Creatinine Ratio 22.4 (6-22); Blood Urea Nitrogen 22 mg/dL (9-20); Calcium 9.4 mg/dL (8.4-10.2); Carbon Dioxide 23 mmol/L (22-32); Chloride 101 mmol/L (98-107); Estimated Glomerular Filt Rate > 60 mL/min (>60); Glucose 117 mg/dL (80-110); HEMOLYSIS 20 (0-50); Potassium 3.8 mmol/L (3.4-5.1); Sodium 132 mmol/L (137-145)
[2024-12-18] MEDS: ENALAPRIL 5 MG TABLET 20 MG PO (10:23)
[2024-12-18] MEDS: ENOXAPARIN 40 MG/0.4 ML SYRINGE SUBCUT (10:24)
[2024-12-18] MEDS: AMIODARONE 200 MG TABLET 50 MG PO (10:32)
[2024-12-18] MEDS: METOPROLOL ER 50 MG TABLET PO (10:32)
--- NOTE | 2024-12-18 10:55 | PT.IIE ---
Current Diagnoses Unspecified systolic (congestive) heart failure (12/16/24) Medical History (Last Reviewed 03/18/19 @ 06:51 by Marjorie Hare DO) Hypertension Physical Therapy Inpatient Evaluation/Re-Eval M1 PT/OT-IP Prior Functional Status Start: 12/18/24 12:10 Freq: NEEDED Status: Active Protocol: Document 12/18/24 10:55 AB (Rec: 12/18/24 12:20 AB [id number]) Medical Review Prior Functional Status Medical History Reviewed Yes Communication able to make needs known Mobility and Gait pt stated that he is modified independent with all mobilities and ambulation using a 4WW, occasionally without AD Social History Household Members none Living Arrangements Other Number of Floors (Floors) 3 or More Floors Number of Stairs To Enter/Railing? 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 a building and lives on the attic of the building; not steps to enter the building and has a stair lift to get to the attic Home Environment Standard Height Toilet,Walk in Shower,Built-In Shower Seat Home Equipment Four Wheel Walker,Hand Held Shower,Grab Bars Near Toilet, Grab Bars In Shower Employment Status Retired M2 PT-IP Current Condition Start: 12/18/24 12:10 Freq: NEEDED Status: Active Protocol: Document 12/18/24 10:55 AB (Rec: 12/18/24 12:20 AB [id number]) Physical Therapy Current Condition Current Condition Evaluation Date 12/18/24 Treatment Diagnosis CHF; difficulty in walking Onset Date 12/16/24 M3 PT-IP Subjective Start: 12/18/24 12:10 Freq: NEEDED Status: Active Protocol: Document 12/18/24 10:55 AB (Rec: 12/18/24 12:20 AB [id number]) Subjective Physical Therapy Visit Type Type Initial Evaluation Visit Start Time 10:55 Visit Stop Time 11:10 Number of SURFACE HYDROLOGIST Visits 0 Physical Therapy Visit Comments Patient Comments agreeable to do PT Therapy Pain Assessment Pain Present Pain Present Denied Pain M4 PT-IP Mobility and Gait Start: 12/18/24 12:10 Freq: NEEDED Status: Active Protocol: Document 12/18/24 10:55 AB (Rec: 12/18/24 12:20 AB [id number]) PT-Bed Mobility Assessment Supine to Sit Supine to Sit Independent Sit to Supine Sit to Supine Independent PT-Transfer Assessment Sit to and From Stand Sit to and from Stand Independent Equipment Transfer Assistive Device Gait Belt,4 Wheeled Walker Orthotic/Prosthetic Devices or Brace: No Transfer Ability Level of Assist Standby Assistance Comments Mobility Comments pt in bed and agreed to do PT. obtained PLOF and home set up . BP: 138/82 O2 sat: 97% on RA . pt completed supine to sit mod I. able to put his shoes on by himself. sit to stand I and ambulated in the hallway using 4WW SBA for safety. pt ambulated back in his room. Assessed ambulation without AD SBA to CGA. pt can be impulsive. pt ambulated back to his room. pt agreed to use 4WW all the time. pt went back to bed I with bed mobility. call light and table placed within reach. informed pt that not PT needs at this time and pt agreed. Gait Assessment Gait Gait Assistance Required: Standby Assistance,1 Person Assist Distance (Feet) 100 Able to Maintain Weight Bearing Status Yes During Gait Assistive Devices Assistive Device None,Gait Belt,4 Wheeled Walker Orthotic/Prosthetic Devices or Brace: No Gait Deviations General Gait Pattern Antalgic,Decreased Stride Length,Decreased Feet Clearance Factors Limiting Gait Function Factors Limiting Gait Function Decreased Activity Tolerance, Decreased Strength,Poor Balance PT-Balance Assessment Sitting Balance and Reactions Static Sitting Balance Ability Normal Dynamic Sitting Balance Ability Normal Standing Balance and Reactions Static Standing Balance Ability Good Dynamic Standing Balance Ability Fair Device Used without AD M5 PT-IP Objective Assessments Start: 12/18/24 12:10 Freq: NEEDED Status: Active Protocol: Document 12/18/24 10:55 AB (Rec: 12/18/24 12:20 AB [id number]) Orientation Orientation/Cognition Level of Alertness Alert Orientation Name,Place,Situation Language Function Ability Hard of Hearing Safety Awareness Decreased Safety Awareness Memory Description No Deficits Noted Gross Range of Motion Lower Extremity ROM Assessment Within Functional Limits Strength Lower Extremity Strength Assessment Within Functional Limits Coordination Assessment Gross Coordination Gross Coordination WNL Muscle Tone Muscle Tone WNL Yes M6 PT-IP Treatment Start: 12/18/24 12:10 Freq: NEEDED Status: Active Protocol: Document 12/18/24 10:55 AB (Rec: 12/18/24 12:20 AB [id number]) Physical Therapy Treatment Education Education Provided Safety M7 PT-IP Assessment and Plan Start: 12/18/24 12:10 Freq: NEEDED Status: Active Protocol: Document 12/18/24 10:55 AB (Rec: 12/18/24 12:20 AB [id number]) PT Summary Assessment and Plan Potential Rehabilitation Potential Good Status of Condition at Evaluation Stable Summary Impairments Gait,Activity Tolerance Assessment Summary Pt is an 84 y/o F who his admitted for CHF. pt is modified independent with bed mobility, SBA for ambulation using 4WW for safety. No further PT intervention needed at this time. pt to mobilize with nursing staff. Frequency of Treatment Frequency Of Treatment Discharge Recommendations To Nursing Amount of Assist Needed Standby Assistance Discharge Recommendations PT Discharge Recommendations Home Transportation Needs at Discharge Private Vehicle
[2024-12-18] MEDS: FUROSEMIDE 40 MG TABLET PO (11:10)
--- NOTE | 2024-12-18 12:27 | PC.NURSE ---
Pt alert and oriented, slightly confused occasionally. Lots of visitors throughout the day. Pt offers no overt c/o. Dr. West in to see Pt. Up with PT and staff, using walker. No overt distress. Independent in room.
[2024-12-18] MEDS: CALCIUM CARBONATE 500 MG TAB PO ×4 (15:06→21:51)
[2024-12-18] MEDS: SPIRONOLACTONE 25 MG TABLET PO (16:28)
[2024-12-19] VITALS: BP 128/95; PULSE 102; RESP 18; TEMP 36.1; O2SAT 97
[2024-12-19 04:00] VITALS: BP 144/82; PULSE 88; RESP 16; TEMP 36.1; O2SAT 99
[2024-12-19 06:00] LABS: Add Manual Diff / Slide Review NO; Basophils Absolute Auto 0 /uL (0-100); Basophils Percent Auto 0.7 % (0-2); Eosinophils Absolute Auto 100 /uL (0-450); Eosinophils Percent Auto 1.9 % (2-4); Hematocrit 42.8 % (41-53); Hemoglobin 14.3 g/dL (13.5-17.5); Lymphocytes Absolute Auto 1400 /uL (1100-4500); Lymphocytes Percent Auto 20.2 % (25-40); Mean Corpuscular HGB Conc 33.3 % (30-36); Mean Corpuscular Volume 96.1 fL (80-100); Monocytes Absolute Auto 800 /uL (0-900); Monocytes Percent Auto 11.3 % (3-14); Neutrophils Absolute Auto 4600 /uL (1500-7000); Neutrophils Percent Auto 65.9 % (50-75); Platelet Count 245 X10^3/uL (150-400); Red Blood Cell Count 4.45 X10^6/uL (4.5-5.9); Red Cell Distribution Width 15.6 % (11.6-14.8); White Blood Cell Count 6.9 X10^3/uL (4.5-11.0)
[2024-12-19 06:09] LABS: Alanine Aminotransferase 23 IU/L (<50); Albumin 3.9 g/dL (3.5-5.0); Albumin Globulin Ratio 1.4 (1.0-2.8); Alkaline Phosphatase 85 U/L (38-126); Aspartate Aminotransferase 41 IU/L (17-59); BUN Creatinine Ratio 28.4 (6-22); Bilirubin Total 0.7 mg/dL (0.2-1.3); Blood Urea Nitrogen 29 mg/dL (9-20); Calcium 9.4 mg/dL (8.4-10.2); Carbon Dioxide 25 mmol/L (22-32); Chloride 101 mmol/L (98-107); Estimated Glomerular Filt Rate > 60 mL/min (>60); Globulin 2.7 g/dL (1.7-4.1); Glucose 107 mg/dL (80-110); HEMOLYSIS < 15 (0-50); Potassium 3.8 mmol/L (3.4-5.1); Sodium 133 mmol/L (137-145); Total Protein 6.6 g/dL (6.3-8.2)
[2024-12-19 08:00] VITALS: BP 138/97; PULSE 87; RESP 16; TEMP 36.2; O2SAT 97
--- NOTE | 2024-12-19 08:19 | PC.NURSE ---
Addendum entered by Quyen Reyes R.N. 12/19/24 12:55: 1130 pt up amb room states he needs to go home to work and watch the game, i will sign the papers pt pleasant and dr. demarcus damon here to dc pt home. verbal and written instructions given. a friend met him on the way out and will follow him home Original Note: Patient alert sitting on edge of bed having breakfast, states I have my mental awareness about me now, I know my last year but got confused last night and was looking for her oriented x 4, forgetful and does repeat himself often. no other c\o at this time.
[2024-12-19] MEDS: AMIODARONE 200 MG TABLET 50 MG PO (08:52)
[2024-12-19 08:58] VITALS: BP 138/97
[2024-12-19] MEDS: ENALAPRIL 5 MG TABLET 20 MG PO (08:58)
[2024-12-19] MEDS: ENOXAPARIN 40 MG/0.4 ML SYRINGE SUBCUT (09:04)
[2024-12-19 09:06] VITALS: BP 138/97
[2024-12-19] MEDS: METOPROLOL ER 50 MG TABLET PO (09:06)
[2024-12-19] MEDS: SPIRONOLACTONE 25 MG TABLET PO (09:07)
--- NOTE | 2024-12-19 12:08 | P.DS_ITS ---
History of Present Illness History of Present Illness Chief complaint: SOB Discharge Providers Provider Date of admission: 12/16/24 19:48 Discharge Date: 12/19/24 Primary care physician: Jairo Wang MD Consults: 12/17/24 13:53 Consult to Occupational Therapy Evaluate & Treat Comment: Physician Instructions: Evaluate and treat Consult to Physical Therapy Evaluate & Treat Comment: Physician Instructions: Evaluate and Treat Discharge provider: Jamshid West MD Summary Hospital Course Discharge Diagnosis: Acute systolic heart failure Aortic stenosis severe Hypertension Hospital Course: Patient was admitted to the hospital with symptoms consistent with heart failure echocardiogram was done which showed ejection fraction of 25-30% patient was started on diuresis. Concerning aortic stenosis add a severe level which will need outpatient cardiac follow-up. His blood pressure was managed during his hospital stay he was up eating tolerating his diet. His discharge plan will be discharge home. He will follow up with his primary care physician. We made some small adjustments to his medications he has on a beta-diana he has on an angiotensin receptor diana we started spironolactone. 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 Exam Vital Signs (past 8 hours): - 12/19/24 08:00 12/19/24 08:00 12/19/24 08:58 Temperature 97.1 F L Pulse Rate 87 Respiratory Rate 16 Blood Pressure 138/97 H 138/97 H Pulse Oximetry 97 97 Oxygen Flow Rate 0 0 12/19/24 09:06 Temperature Pulse Rate Respiratory Rate Blood Pressure 138/97 H Pulse Oximetry Oxygen Flow Rate Oxygen Delivery Method Room Air Oxygen Flow Rate 0 Objective Labs 12/19/24 05:40 12/19/24 05:40 Labs: Laboratory Results - last 24 hr 12/19/24 05:40 WBC 6.9 RBC 4.45 L Hgb 14.3 Hct 42.8 MCV 96.1 MCH 32.0 MCHC 33.3 RDW 15.6 H Plt Count 245 Neut % (Auto) 65.9 Lymph % (Auto) 20.2 L [place] % (Auto) 11.3 Eos % (Auto) 1.9 L Baso % (Auto) 0.7 Neut # (Auto) 4600 Lymph # (Auto) 1400 [place] # (Auto) 800 Eos # (Auto) 100 Baso # (Auto) 0 Sodium 133 L Potassium 3.8 Chloride 101 Carbon Dioxide 25 BUN 29 H Creatinine 1.02 Estimated GFR > 60 BUN/Creatinine Ratio 28.4 H Glucose 107 Calcium 9.4 Total Bilirubin 0.7 AST 41 ALT 23 Alkaline Phosphatase 85 Total Protein 6.6 Albumin 3.9 Globulin 2.7 Albumin/Globulin Ratio 1.4 [facility] Medical History (Updated 12/18/24 @ 09:45 by Jamshid West MD) Hypertension Social History household members: none Smoking Status: Never smoker alcohol intake: current Discharge Plan Discharge Plan Patient Disposition: Home Discharge orders & Medications Prescriptions: New spironolactone 25 mg tablet 25 mg PO DAILY Qty: 30 0RF Continued albuterol sulfate 90 mcg/actuation HFA aerosol inhaler 1 - 2 puff INHALATION Q4H PRN (Reason: wheezing) amiodarone 100 mg tablet 50 mg PO DAILY enalapril maleate 20 mg tablet 20 mg PO DAILY Changed metoprolol succinate 25 mg tablet extended release 24 hr 50 mg PO DAILY Qty: 30 0RF Follow up/Referrals: Jairo Wang MD [Primary Care Provider] - Visit Report/Discharge Packet Stand Alone Forms: Patient Portal/API, Stroke Signs & Symptoms Discharge Data Primary Care Provider: Jairo Wang Attending Provider: Jairo Wang Admit Date/Time: 12/16/24 19:48 Quality VTE Deep Vein Thrombosis/Pulmonary Embolism Present on Admission: No IH PROFEE Charge Codes Discharge inpatient/observation: [id number]
--- NOTE | 2024-12-19 12:16 | CM.DPC ---
DCP Discharge Home Per MD, pt had some confusion overnight but per RN pt aware of his confusion and improved today and dressed and stating he feels stable for discharge and MD in agreement and completed discharge orders. Per PT yesterday, she confirmed with pt and RN that pt independent in room and no need for PT/OT and orders discontinued. Plan: Patient to d/c home today and has own vehicle in parking lot and RN with no concerns at this time and no further SW needs. RAFAEL Allred
== END 2024-12-19 11:30 | disposition home or self-care (01) | DRG 291 ==
LOC: ED 19:35 → AC 19:49
PROVIDERS: Emergency Medicine; Family Medicine; Admitting Provider Internal Medicine; Emergency Provider Student in an Organized Health Care Education/Training Program; PCP Family Medicine; Visit Provider Family Medicine
DX: I11.0 Hypertensive heart disease with heart failure (principal); I50.21 Acute systolic (congestive) heart failure; J44.9 Chronic obstructive pulmonary disease, unspecified; I35.0 Nonrheumatic aortic (valve) stenosis; Z86.79 Personal history of other diseases of the circulatory system
CPT/HCPCS: 0241U; 36415; 71045; 80048; 80053; 82550; 83690; 83735; 83880; 84443; 84484; 85025; 85610; 85730; 93005; 93306; 94640; 96374; 97161; 99233; 99238; 99285; G0378; J1650; J1940; J7613

== ENCOUNTER → 2025-06-02 14:51 | Outpatient (CLI) | payer MEDICARE, OTHER, SELFPAY ==
--- NOTE | 2025-06-02 15:04 | DI.RAD.S_ITS ---
PROCEDURE: XR CHEST 2V INDICATIONS: SOB TECHNIQUE: 2 views of the chest were acquired. COMPARISON: [facility], , XR CHEST 1V, 12/16/2024, 15:27. [facility], CR, XR CHEST 1V, 03/18/2019, 6:44. FINDINGS: Surgical changes and devices: None. Lungs and pleura: Small bilateral pleural effusions. No pneumothorax. Bibasilar opacity. Mediastinum: Mediastinal contours are unchanged. Heart size is normal. Bones and chest wall: No suspicious bony abnormalities. Soft tissues appear unremarkable. IMPRESSION: Small bilateral pleural effusions and bibasilar opacity. Dictated by: Justyn Wing M.D. on 06/02/2025 at 23:31 Approved by: Justyn Wing M.D. on 06/02/2025 at 23:33
== END ==
PROVIDERS: Physician Assistant; PCP Family Medicine; Referring Provider Family Medicine; Visit Provider Internal Medicine Interventional Cardiology
DX: I35.0 Nonrheumatic aortic (valve) stenosis (principal); J90 Pleural effusion, not elsewhere classified; R06.02 Shortness of breath
CPT/HCPCS: 71046; 84156; 84166

== ENCOUNTER 2025-07-27 16:00 | Emergency (ER) | payer MEDICARE, OTHER, SELFPAY ==
[2025-07-27 16:06] VITALS: BP 103/64; PULSE 87; RESP 18; TEMP 36.5; O2SAT 99; BMI 21.1
--- NOTE | 2025-07-27 18:01 | PC.NURSE ---
significant area of skin tear on forearm of right arm, no skin present to steri strip. Non adherent dressing applied.
--- NOTE | 2025-07-27 18:10 | ED.WOUNDLAC ---
HPI - Wound/Laceration General Chief Complaint: Wound/Laceration Stated Complaint: Arm Laceration Time Seen by Provider: 07/27/25 17:57 Source: patient, RN notes reviewed and old records reviewed Mode of arrival: Wheelchair Limitations: no limitations History of Present Illness HPI narrative: 85-year-old male has a stent placed in his aorta at [facility] in [facility] in the last 24 hours. His line was in his right upper extremity and when they removed the dressing pulled off his skin. He is having some persistent bleeding from it presents today. His friend who is with him asked if we can also check his catheterization site in his right groin for any signs of hematoma. Patient states otherwise he feels well. Denies any other issues or concerns. Related Data Home Medications ?Medication ?Instructions ?Recorded ?Confirmed albuterol sulfate 90 mcg/actuation 1 - 2 puff inhalation Q4H PRN 12/16/24 12/16/24 aerosol inhaler wheezing amiodarone 100 mg tablet 50 mg PO DAILY 12/16/24 12/16/24 enalapril maleate 20 mg tablet 20 mg PO DAILY 12/16/24 12/16/24 Previous Rx's ?Medication ?Instructions ?Recorded metoprolol succinate 25 mg 50 mg (2 x 25 mg) PO DAILY #30 tabs 12/18/24 tablet,extended release 24 hr spironolactone 25 mg tablet 25 mg PO DAILY #30 tabs 12/18/24 Allergies Allergy/AdvReac Type Severity Reaction Status Date / Time No Known Drug Allergies Allergy Verified 03/18/19 07:16 Review of Systems Review of Systems ROS Unobtainable: All systems reviewed & are unremarkable except as noted in HPI and below Patient History Medical History Hypertension Social History household members: none Smoking Status: Never smoker alcohol intake: current Smoking Status: Never smoker alcohol intake frequency: a few times a month Exam Narrative Exam Narrative: GENERAL: Alert and oriented x three, elderly appearing male mild distress HEENT: Head normocephalic, atraumatic, EOMI, pupils reactive, face symmetric, moist mucous membranes NECK: Supple, full range of motion CARDIOVASCULAR: Regular rate and rhythm without murmurs, rubs or gallops. RESPIRATORY: Breath sounds equal bilaterally, no wheezes rales or rhonchi. ABDOMEN: Soft, nontender. Normoactive bowel sounds all 4 quadrants. No guarding or rebound, rigidity, no mass : No CVA tenderness EXTREMITIES: Normal range of motion, no clubbing or edema. Neurovascularly intact. Patient has a skin tear that is proximally 3 x 2 cm with the right upper extremity, no laceration appreciated. Patient does have some ecchymosis in the surrounding area. No active bleeding. Of the right groin patient has a bandage in place with a clear Tegaderm. No swelling warmth or erythema no signs of hematoma. Patient has palpable pulse. NEUROLOGICAL: Cranial nerves II through XII grossly intact. Moving all extremities SKIN: Warm, dry, no petechiae, no rashes or lesions otherwise noted. Initial Vital Signs Initial Vital Signs: Vital Signs Temperature 97.7 F 07/27/25 16:06 Pulse Rate 87 07/27/25 16:06 Respiratory Rate 18 07/27/25 16:06 Blood Pressure 103/64 07/27/25 16:06 Pulse Oximetry 99 07/27/25 16:06 Oxygen Delivery Method Room Air 07/27/25 16:06 Course Vital Signs Vital signs: Vital Signs - 8 hr 07/27/25 16:06 Temperature 97.7 F Pulse Rate 87 Respiratory Rate 18 Blood Pressure 103/64 Pulse Oximetry 99 Oxygen Delivery Method Room Air MDM - Wound/Laceration MDM Narrative Medical decision making narrative: 85-year-old male with a skin tear in his right upper extremity after having bandage removed earlier today. Also asked to check for hematoma in his catheterization site. He is otherwise feeling very well. Skin tear was placed with bandage. Discussed wound care. Discussed return precautions. Discharge Plan Departure Patient Disposition: Home Clinical Impression: Skin tear of right forearm without complication Activity Restrictions/Additional Instructions: Wound Care: Keep wound(s) clean and dry. Wash daily with soap and water only. Place a nonstick bandage. Do not use over the counter products (alcohol or peroxide)on the wounds unless instructed by a physician. You can use triple antibiotic ointment to the affected area with dressing changes. If wound condition worsens (increased/expanding redness, developing fluid blisters, or worsening pain), either contact your doctor for an urgent re-assessment , or return to the Emergency Department. Return if fever greater than 100.4 Fahrenheit, increased swelling, increasing pain or worsening symptoms such as increased discharge or spreading redness. Prescriptions: No Action albuterol sulfate 90 mcg/actuation HFA aerosol inhaler 1 - 2 puff INHALATION Q4H PRN (Reason: wheezing) amiodarone 100 mg tablet 50 mg PO DAILY enalapril maleate 20 mg tablet 20 mg PO DAILY metoprolol succinate 25 mg tablet extended release 24 hr 50 mg PO DAILY Qty: 30 0RF spironolactone 25 mg tablet 25 mg PO DAILY Qty: 30 0RF Referrals: Jairo Wang MD [Primary Care Provider, Family Practice] Stand Alone Forms: Patient Portal/API
== END 2025-07-27 18:23 | disposition home or self-care (01) ==
PROVIDERS: Emergency Provider Emergency Medicine; PCP Family Medicine
DX: S51.811A Laceration without foreign body of right forearm, initial encounter (principal)
CPT/HCPCS: 99281

== ENCOUNTER 2025-09-04 12:23 | Inpatient (IN) | payer MEDICARE, OTHER, SELFPAY ==
[2025-09-04] VITALS (18 sets, daily range): BP systolic 101–127; BP diastolic 63–80; PULSE 59–128; RESP 16–35; TEMP 35.9–37.1; O2SAT 90–100; BMI 23.5
--- NOTE | 2025-09-04 12:47 | DI.RAD.S_ITS ---
PROCEDURE: XR CHEST 1V INDICATIONS: Shortness of breath TECHNIQUE: One view of the chest was acquired. COMPARISON: [facility], CR, XR CHEST 1V, 12/16/2024, 15:27. [facility], CR, XR CHEST 2V, 06/02/2025, 15:00. FINDINGS: Surgical changes and devices: None. Lungs and pleura: Low lung volumes are noted. This causes a crowded appearance to the lung markings and limits evaluation. Blunting of the costophrenic angles can be seen. No pneumothorax. Mild interstitial prominence is seen. Mediastinum: The cardiac contours are mildly enlarged. The aorta demonstrates calcification and tortuosity. Bones and chest wall: No suspicious bony lesions. Age-appropriate bony degenerative changes are seen. Overlying soft tissues appear unremarkable. IMPRESSION: Limited study with low lung volumes. There is cardiomegaly and interstitial prominence, with bilateral pleural effusions. Please consider CHF. Dictated by: Ludwig Patino M.D. on 09/04/2025 at 12:42 Approved by: Ludwig Patino M.D. on 09/04/2025 at 12:43
--- NOTE | 2025-09-04 12:47 | EKG_ITS ---
[address] [id number] Test Date: 2025-09-04 Pat Name: Ryan Bledsoe Department: Room: Gender: Male Manager Card: GENEVA : 1940 Requested By: Order Number: [id number] Reading MD: Glenroy Ro MD Measurements Intervals [place] Rate: 105 P: 39 IN: 160 QRS: -27 QRSD: 92 T: 103 QT: 364 QTc: 481 Interpretive Statements Sinus tachycardia with premature ventricular complexes or fusion complexes Low voltage QRS Inferior infarct , age undetermined Cannot rule out Anteroseptal infarct , age undetermined Electronically Signed On 09-18-2025 8:56:34 PST by Glenroy Ro MD
[2025-09-04 13:06] LABS: Add Manual Diff / Slide Review NO; Hematocrit 43.3 % (41-53); Hemoglobin 14.3 g/dL (13.5-17.5); Lymphocytes Absolute Auto 700 /uL (1100-4500); Mean Corpuscular HGB Conc 33.0 % (30-36); Mean Corpuscular Hemoglobin 33.4 PG (26-34); Mean Corpuscular Volume 101.2 fL (80-100); Platelet Count 270 X10^3/uL (150-400)
[2025-09-04 13:12] LABS: INR 1.5 (0.9-1.3); Prothrombin Time 16.9 SECONDS (9.4-12.5)
[2025-09-04 13:15] LABS: Lactate (Lactic Acid) 2.5 mmol/L (0.7-2.1)
[2025-09-04 13:16] LABS: Alanine Aminotransferase 28 IU/L (<50); Albumin 3.1 g/dL (3.5-5.0); Albumin Globulin Ratio 0.9 (1.0-2.8); Alkaline Phosphatase 200 U/L (38-126); Blood Urea Nitrogen 36 mg/dL (9-20); Calcium 8.5 mg/dL (8.4-10.2); Carbon Dioxide 24 mmol/L (22-32); Chloride 103 mmol/L (98-107); Estimated Glomerular Filt Rate > 60 mL/min (>60); Globulin 3.5 g/dL (1.7-4.1); Glucose 109 mg/dL (70-99); HEMOLYSIS < 15 (0-50); Potassium 4.1 mmol/L (3.4-5.1); Sodium 134 mmol/L (137-145); Total Protein 6.6 g/dL (6.3-8.2)
--- NOTE | 2025-09-04 13:29 | ED.SOB ---
HPI - SOB/Dyspnea General Chief Complaint: Shortness of Breath/Dyspnea Stated Complaint: on new medication feels weak sob cant sleep Time Seen by Provider: 09/04/25 12:41 Source: patient Mode of arrival: EMS Limitations: physical limitation History of Present Illness HPI Narrative: Shortness of breath worsening over the last several days. Patient denies any chest pain although does endorse back pain and buttocks pain. Per patient's [id number], they have recommended that he seek assisted living or home health and he has been resistant to this. Per report, patient has had numerous recent medication changes. He is living home alone and manages his own medications. He does not have any daily assistance to the bathroom more with food. MD Complaint: shortness of breath and cough Related Data Home Medications ?Medication ?Instructions ?Recorded ?Confirmed albuterol sulfate 90 mcg/actuation 1 - 2 puff inhalation Q4H PRN 12/16/24 12/16/24 aerosol inhaler wheezing amiodarone 100 mg tablet 50 mg PO DAILY 12/16/24 12/16/24 enalapril maleate 20 mg tablet 20 mg PO DAILY 12/16/24 12/16/24 Previous Rx's ?Medication ?Instructions ?Recorded metoprolol succinate 25 mg 50 mg (2 x 25 mg) PO DAILY #30 tabs 12/18/24 tablet,extended release 24 hr spironolactone 25 mg tablet 25 mg PO DAILY #30 tabs 12/18/24 Allergies Allergy/AdvReac Type Severity Reaction Status Date / Time No Known Drug Allergies Allergy Verified 09/04/25 12:49 Review of Systems Constitutional Constitutional: Reports fatigue and Reports poor appetite Cardiovascular Cardiovascular: Denies chest pain, Reports leg edema and Reports dyspnea Respiratory Respiratory: Reports cough and Reports dyspnea Gastrointestinal Gastrointestinal: Denies vomiting Genitourinary Genitourinary: Denies dysuria Endocrine Endocrine: Reports fatigue Patient History Medical History Hypertension Social History household members: none Smoking Status: Never smoker alcohol intake: current Smoking Status: Never smoker alcohol intake frequency: a few times a month Exam Initial Vital Signs Initial Vital Signs: Vital Signs Pulse Rate 106 H 09/04/25 12:38 Respiratory Rate 29 H 09/04/25 12:38 Pulse Oximetry 97 09/04/25 12:38 Oxygen Delivery Method Nasal Cannula 09/04/25 12:38 Oxygen Flow Rate 4 09/04/25 12:38 Const General: cooperative, No in distress and frail appearing [facility] Head: atraumatic Chest Chest: normal inspection of the chest Resp Effort & Inspection: stridor and tachypneic Auscultation: rhonchi Cardio Rhythm: regular rhythm Heart Sounds: murmur GI Palpation: soft Skin Wounds: wounds noted (Sacral pressure wounds) Neuro General: patient alert and patient awake Extrem Right lower extremity: edema Left lower extremity: edema Course Course Course Narrative: In the setting of patient's ongoing shortness of breath, difficulties with self-care, and evidence of sacral wounds, we will plan for admission for management of underlying heart failure and fluid overload. Patient presentation discussed with full report with admitting hospitalist. Orders Ordered: ED Orders 09/04/25 12:47 XR chest 1V Stat EKG-12 Lead Stat 09/04/25 12:57 Complete Blood Count AUTO DIFF Stat Comprehensive Metabolic Panel Stat Lactate (Lactic Acid) Stat NT-proBNP (BNP-Adult 18+) Stat Prothrombin Time INR Stat Troponin I Stat 09/04/25 14:58 Troponin I Stat Acetaminophen (Acetaminophen 325 Mg Tablet) 650 mg PO Q6H PRN PRN Reason: Fever/Mild Pain (1-3) Hydrocodone Bitart/Acetaminophen (Hydrocodone/Acet 5/325 Tablet) 1 tab PO Q4H PRN PRN Reason: Pain, Moderate (4-6) Albuterol (Albuterol 2.5 Mg/3 Ml Neb (Adult)) 2.5 mg INH [id number] PRN PRN Reason: Shortness Of Breath Last Admin: 09/04/25 18:49 Dose: 2.5 mg Documented By: SAMARA Calcium Carbonate (Calcium Carbonate 500 Mg Tab) 1,000 mg PO Q4HR PRN PRN Reason: Dyspepsia Clopidogrel Bisulfate (Clopidogrel 75 Mg Tablet) 75 mg PO DAILY CORDELL Docusate Sodium (Docusate 100 Mg Capsule) 100 mg PO BID CORDELL Furosemide (Furosemide 40 Mg/4 Ml Vial) 40 mg IV Q12HR CORDELL Magnesium Hydroxide (Magnesium Hydroxide 30 Ml Udc) 30 ml PO DAILY PRN PRN Reason: Constipation Naloxone HCl (Naloxone 0.4 Mg/Ml Vial) 0.2 mg IV Q2MIN PRN PRN Reason: Opiate Reversal Nystatin (Nystatin Cream 30 Gm) 1 applic TOP TID CORDELL Ondansetron HCl (Ondansetron 4 Mg/2 Ml Inj) 4 mg IV Q8HR PRN PRN Reason: Nausea And Vomiting Discontinued Medications Furosemide (Furosemide 40 Mg/4 Ml Vial) 40 mg IV NOW ONE Stop: 09/04/25 13:50 Last Admin: 09/04/25 14:14 Dose: 40 mg Documented By: ROCKY Vital Signs Vital signs: Vital Signs - 8 hr 09/04/25 13:00 09/04/25 13:30 09/04/25 13:31 Pulse Rate 109 H Respiratory Rate 34 H Blood Pressure 108/78 101/67 Pulse Oximetry Oxygen Delivery Method Oxygen Flow Rate 09/04/25 14:00 09/04/25 14:00 09/04/25 14:30 Pulse Rate 102 H Respiratory Rate 27 H Blood Pressure 106/76 110/69 Pulse Oximetry 100 Oxygen Delivery Method Nasal Cannula Oxygen Flow Rate 4 09/04/25 14:30 09/04/25 15:00 09/04/25 15:01 Pulse Rate 108 H 128 H 112 H Respiratory Rate 35 H 29 H 27 H Blood Pressure Pulse Oximetry 96 98 90 L Oxygen Delivery Method Nasal Cannula Oxygen Flow Rate 4 09/04/25 15:01 09/04/25 15:30 Pulse Rate Respiratory Rate Blood Pressure 127/80 110/70 Pulse Oximetry Oxygen Delivery Method Oxygen Flow Rate MDM - SOB/Dyspnea Differential Diagnosis Differential diagnosis: Likely congestive heart failure, community acquired pneumonia, pulmonary embolism and other (ACS, aortic stenosis) Medical Records Attestation: I reviewed the patient's medical records. Lab Data Attestation: I reviewed the patient's lab results. 09/04/25 12:57 09/04/25 12:57 Labs: Lab Results 09/04/25 09/04/25 Range/Units 12:57 14:58 WBC 7.0 (4.5-11.0) X10^3/uL RBC 4.28 L (4.5-5.9) X10^6/uL Hgb 14.3 (13.5-17.5) g/dL Hct 43.3 (41-53) % MCV 101.2 H (80-100) fL MCH 33.4 (26-34) PG MCHC 33.0 (30-36) % RDW 16.7 H (11.6-14.8) % Plt Count 270 (150-400) X10^3/uL Neut % (Auto) 82.8 H (50-75) % Lymph % (Auto) 10.2 L (25-40) % Howard % (Auto) 6.4 (3-14) % Eos % (Auto) 0.1 L (2-4) % Baso % (Auto) 0.5 (0-2) % Neut # (Auto) 5800 (6481-3250) /uL Lymph # (Auto) 700 L (3109-6066) /uL Howard # (Auto) 400 (0-900) /uL Eos # (Auto) 0 (0-450) /uL Baso # (Auto) 0 (0-100) /uL PT 16.9 H (9.4-12.5) SECONDS INR 1.5 H (0.9-1.3) Sodium 134 L (137-145) mmol/L Potassium 4.1 (3.4-5.1) mmol/L Chloride 103 (98-107) mmol/L Carbon Dioxide 24 (22-32) mmol/L BUN 36 H (9-20) mg/dL Creatinine 1.09 (0.66-1.25) mg/dL Estimated GFR > 60 (>60) mL/min BUN/Creatinine Ratio 33.0 H (6-22) Glucose 109 H (70-99) mg/dL Lactate 2.5 H 2.2 H (0.7-2.1) mmol/L Calcium 8.5 (8.4-10.2) mg/dL Total Bilirubin 0.7 (0.2-1.3) mg/dL AST 46 (17-59) IU/L ALT 28 (<50) IU/L Alkaline Phosphatase 200 H (38-126) U/L Troponin I 0.164 H* 0.147 H* (0.01-0.034) ng/mL NT-Pro-B Natriuret Pep 76646 H (<450) pg/mL Total Protein 6.6 (6.3-8.2) g/dL Albumin 3.1 L (3.5-5.0) g/dL Globulin 3.5 (1.7-4.1) g/dL Albumin/Globulin Ratio 0.9 L (1.0-2.8) Imaging Data Chest x-ray: Attestation: I personally reviewed and interpreted this imaging study as follows: My Impression: Chest x-ray notable for bilateral small pleural effusions and lung findings suggestive of pulmonary edema on independent review. MDM Narrative Medical decision making narrative: History and exam as above. Presenting with shortness of breath with broad differential including pneumonia, CHF, fluid overload, ACS, PE, pneumothorax, pleural effusion. In the setting of patient's relative immobility and medication changes, suspect likely multifactorial. May also represent anemia, electrolyte abnormality, malnutrition. Discharge Plan Departure Patient Disposition: Admitted As Inpatient Clinical Impression: Dyspnea due to congestive heart failure, Non-ST elevation AR (NSTEMI) Admit Date/Time: 09/04/25 15:54 Admit Provider: Carito Schaefer
[2025-09-04 13:35] LABS: Troponin I 0.164 ng/mL (0.01-0.034)
[2025-09-04 13:41] LABS: NT-proBNP (BNP-Adult 18+) 56900 pg/mL (<450)
[2025-09-04] MEDS: FUROSEMIDE 40 MG/4 ML VIAL IV (14:14)
[2025-09-04 14:39] LABS: Reflexed Lactate in 2 Hours Y
[2025-09-04 15:30] LABS: Lactate 2HR (Lactic Acid Rflx) 2.2 mmol/L (0.7-2.1)
[2025-09-04 15:34] LABS: Troponin I 0.147 ng/mL (0.01-0.034)
--- NOTE | 2025-09-04 16:04 | DI.ECHO.S_ITS ---
[facility] : : [address] : : [place] : : [id number] : : Phone: [phone] Echocardiogram Report + + :Name: FRANKIE CYR Study Date: 09/05/2025 Height: 67 in : :[facility] ReadingLocation: Weight: 150 lb : : Gender: Male BSA: 1.8 m2 : :: 1940 Age: 85 yrs BP: 127/80 mmHg: :Reason For Study: CHF : :Ordering Physician: DESI, : :HILARY Performed By: Qasim Whitten : :Referring: HILARY WEEKS : + + Interpretation Summary - The left ventricular contractility is severely compromised. Estimated ejection fraction is approximately 15 to 20%. Only the basal segments has contractility but they are moderately hypokinetic. The remaining segments are akinetic. No LVH. Unable to comment on diastolic function. - The right ventricular contractility is moderately compromised. - Four-chamber cardiac enlargement noted. LVEDD is 5.7 cm. - Low-flow low gradient aortic valvular stenosis with peak velocity of 2.3 m/s. On 2D images, the degree of stenosis appears to be moderate. Moderate aortic insufficiency present. - Mild tricuspid regurgitation with estimated pulmonary systolic artery pressures of approximately 55 to 58 mmHg. - Trace to mild pulmonic insufficiency. - No obvious intracardiac shunts. - No obvious intracardiac masses nor thrombi. - Small, nonhemodynamically significant pericardial effusion present. - Mildly dilated ascending thoracic aorta without obvious dissection. Conclusion: Severely compromised left ventricular systolic function with mild to moderate valvular heart disease. When compared with previous echocardiogram, there appears to be a decline in left ventricular systolic function. Procedure: A two-dimensional transthoracic echocardiogram with color flow and Doppler was performed. The study quality was technically adequate. Comparison is made with the echocardiogram of 12/17/2024. The heart rate ranged between 130-131 bpm during the study. Left Ventricle: The left ventricle is mildly dilated. There is normal left ventricular wall thickness. Left ventricular systolic function is severely reduced. The ejection fraction is estimated to be 15-20%. Left ventricular function appears reduced when compared to previous echo scanned on 12/17/2024. There is severe global hypokinesis of the left ventricle. Diastolic function is indeterminate. Right Ventricle: The right ventricle is mildly dilated. Right ventricular systolic function is moderately reduced. Atria: The left atrium is moderately dilated. The right atrium is mildly dilated. There is no Doppler evidence for an interatrial shunt. Mitral Valve: There is mild to moderate mitral annular calcification. Thickening of the posterior mitral valve leaflet. There is no mitral valve stenosis. There is trace mitral regurgitation. Aortic Valve: The aortic valve is trileaflet. Aortic valve is calcified with fusion of the right and non-coronary cusp, creating a functional bicuspid valve. The calculated aortic valve area is 0.68 cm2. The peak aortic velocity is 2.3 m/sec. The aortic valve mean gradient is 14.2 mmHg. sev ratio: 0.20. There is moderate aortic regurgitation. Tricuspid Valve: The tricuspid valve is not well visualized, but is grossly normal. There is mild tricuspid regurgitation. Right ventricular systolic pressure is estimated to be 45 mmHg plus the clinically estimated CVP which cannot be estimated on this exam. Pulmonic Valve: The pulmonic valve is not well seen, but is grossly normal. There is mild pulmonic regurgitation. Great Vessels: The aortic root is normal size. The aortic arch could not be visualized. Based on patients BSA, patients proximal ascending aorta is dilated with a max diameter of 4.1 cm. The inferior vena cava was not visualized. Pericardium/ Pleura There is a small pericardial effusion noted. There are no echocardiographic or Doppler indications for cardiac tamponade. Pleural Effusion noted. MMode/2D Measurements & Calculations LVIDd: 5.7 cm LVOT diam: 2.2 cm LVIDs: 4.9 cm Ao root diam: 3.8 cm FS: 13.7 % asc Aorta Diam: 4.1 cm EPSS: 2.3 cm IVSd: 0.89 cm LVPWd: 0.91 cm LV ruiz. diameter/BSA (cm/m^2): 3.2 LV sys. diameter/BSA (cm/m^2): 2.8 LA A2 area: 24.8 cm2 RA long axis: 5.1 cm LA A4 area: 24.0 cm2 RA area: 16.7 cm2 LA length (vol): 6.1 cm RA vol: 46.5 ml LA vol: 83.5 ml RA : 26.0 ml/m2 LA vol index: 46.6 ml/m2 RVD1 (basal): 4.0 cm RVD2 (mid): 3.2 cm TAPSE: 0.95 cm Doppler Measurements & Calculations Ao V2 max: 234.1 cm/sec LVOT Max Eric: 42.7 cm/sec Ao V2 mean: 179.7 cm/sec LV V1 max P.73 mmHg Ao max P.9 mmHg LV V1 VTI: 6.2 cm Ao mean P.2 mmHg ANGELITA(I,D): 0.75 cm2 Ao V2 VTI: 30.8 cm ANGELITA(V,D): 0.68 cm2 sev ratio: 0.20 ANGELITA indexed to BSA (cm^2/m^2): 0.42 AI P1/2t: 352.3 msec AI dec slope: 280.3 cm/sec2 MV E max eric: 89.2 cm/sec TR max eric: 331.6 cm/sec MV dec time: 0.16 sec TR max P.8 mmHg PA pr(Accel): 44.3 mmHg SV(LVOT): 23.1 ml Reading Physician:AM
--- NOTE | 2025-09-04 16:06 | PM.HP.1 ---
History of Present Illness History of Present Illness Date Patient Seen: 09/04/25 Time Patient Seen: 16:06 Chief complaint: on new medication feels weak sob cant sleep Narrative: Very pleasant 85-year-old male who is under the primary care of Dr. russo. Due to failing health patient is seen weekly at the clinic and was last seen on August 31. Patient was seen by his equipment man on August 27. On August 31 Dr. russo stopped patient's enalapril, metoprolol and spironolactone due to low blood pressure and weakness. Patient also had rash on buttocks that was being treated as well as a cellulitis on his elbow. This is much better. Patient has been failing to thrive with no appetite and was placed on Megace as well. He was here today with his DPOA and caregiver, Vega Sanders. He states that he progressively worsened over the end of the week and was very short of breath today and that is why he was brought to the ER for evaluation. He was found to be hypoxemic with significant fluid overload and markedly elevated BNP. He was given IV Lasix and placed on oxygen currently at 4 L nasal cannula and is being admitted to the hospital for further treatment and workup. Patient has a complicated medical history as mentioned above. Past medical history: 1. Coronary artery disease with recent stent placement approximately 2 months ago. He was followed at [facility] and [facility] 2. Systolic heart failure with last ejection fraction in December when he was last admitted 20-25% ejection fraction 3. AFib with controlled ventricular rate 4. Severe 5. PVD 6. Intolerance to statin Past surgical history Shoulder surgery Social history: Patient is and was 10 months ago Patient lives in [facility] on his own but has a caregiver who comes in daily Patient has no children Health related behavior Patient occasionally uses alcohol Patient previously smoked a pipe but he quit 50 years ago Family history: Heart disease 12 point review of systems Negative for any cold symptoms sneezing cough No chest pain No palpitations Decreased appetite for months with associated weight loss No rashes No diarrhea or constipation [facility] Medical History Hypertension Social History household members: none Smoking Status: Never smoker alcohol intake: current Meds Home Medications and Allergies Home Medications ?Medication ?Instructions ?Recorded ?Confirmed ?Type albuterol sulfate 90 mcg/actuation 1 - 2 puff inhalation Q4H PRN 12/16/24 09/04/25 History aerosol inhaler wheezing amiodarone 100 mg tablet 50 mg PO BID 12/16/24 09/04/25 History enalapril maleate 20 mg tablet 20 mg PO DAILY 12/16/24 12/16/24 History metoprolol succinate 25 mg 50 mg (2 x 25 mg) PO DAILY #30 tabs 12/18/24 12/16/24 Rx tablet,extended release 24 hr spironolactone 25 mg tablet 25 mg PO DAILY #30 tabs 12/18/24 09/04/25 Rx apixaban 2.5 mg tablet (Eliquis) 2.5 mg PO BID 09/04/25 09/04/25 History clopidogrel 75 mg tablet 75 mg PO DAILY 09/04/25 09/04/25 History furosemide 20 mg tablet 20 mg PO DAILY 09/04/25 09/04/25 History megestrol 20 mg tablet PO DAILY 09/04/25 History metoprolol succinate 50 mg 50 mg PO DAILY 09/04/25 09/04/25 History tablet,extended release 24 hr Allergies Allergy/AdvReac Type Severity Reaction Status Date / Time No Known Drug Allergies Allergy Verified 09/04/25 12:49 Exam Vital Signs (past 8 hours): - 09/04/25 12:38 09/04/25 12:42 09/04/25 12:49 Temperature 97.2 F L Pulse Rate 106 H 120 H Respiratory Rate 29 H 26 H Blood Pressure 111/77 111/77 Pulse Oximetry 97 98 Oxygen Delivery Method Nasal Cannula Room Air Oxygen Flow Rate 4 09/04/25 13:00 09/04/25 13:30 09/04/25 13:31 Temperature Pulse Rate 109 H Respiratory Rate 34 H Blood Pressure 108/78 101/67 Pulse Oximetry Oxygen Delivery Method Oxygen Flow Rate 09/04/25 14:00 09/04/25 14:00 09/04/25 14:30 Temperature Pulse Rate 102 H Respiratory Rate 27 H Blood Pressure 106/76 110/69 Pulse Oximetry 100 Oxygen Delivery Method Nasal Cannula Oxygen Flow Rate 4 09/04/25 14:30 09/04/25 15:00 09/04/25 15:01 Temperature Pulse Rate 108 H 128 H 112 H Respiratory Rate 35 H 29 H 27 H Blood Pressure Pulse Oximetry 96 98 90 L Oxygen Delivery Method Nasal Cannula Oxygen Flow Rate 4 09/04/25 15:01 Temperature Pulse Rate Respiratory Rate Blood Pressure 127/80 Pulse Oximetry Oxygen Delivery Method Oxygen Flow Rate Oxygen Delivery Method Nasal Cannula Oxygen Flow Rate 4 Narrative Exam Narrative: Patient is tachypneic, he was alert but very somnolent Appears chronically ill with malnourishment Afebrile with O2 sats in the 98 on 4 L nasal cannula oxygen Heart rate is in the low 100s Blood pressure 127/80 HEENT: Mucous membranes are moist and pink without any evidence of thrush or abnormal lesions Neck: Supple without adenopathy no jugular venous distention or bruits Chest: Decreased breath sounds bibasilar with some crackles but no rhonchi or wheezes Cor irregularly irregular rhythm at a rate in the 110, 3/6 systolic ejection murmur heard loudest at the left upper sternal border Abdomen: Positive bowel sounds, soft, nontender , nondistended, no hepatosplenomegaly Extremities 1+ pitting edema Cachectic Erythematous rash buttocks with breakdown Neurologic exam is nonfocal Objective Labs 09/04/25 12:57 09/04/25 12:57 Labs: Laboratory Results - last 24 hr 09/04/25 09/04/25 12:57 14:58 WBC 7.0 RBC 4.28 L Hgb 14.3 Hct 43.3 MCV 101.2 H MCH 33.4 MCHC 33.0 RDW 16.7 H Plt Count 270 Neut % (Auto) 82.8 H Lymph % (Auto) 10.2 L [place] % (Auto) 6.4 Eos % (Auto) 0.1 L Baso % (Auto) 0.5 Neut # (Auto) 5800 Lymph # (Auto) 700 L [place] # (Auto) 400 Eos # (Auto) 0 Baso # (Auto) 0 PT 16.9 H INR 1.5 H Sodium 134 L Potassium 4.1 Chloride 103 Carbon Dioxide 24 BUN 36 H Creatinine 1.09 Estimated GFR > 60 BUN/Creatinine Ratio 33.0 H Glucose 109 H Lactate 2.5 H 2.2 H Calcium 8.5 Total Bilirubin 0.7 AST 46 ALT 28 Alkaline Phosphatase 200 H Troponin I 0.164 H* 0.147 H* NT-Pro-B Natriuret Pep 26070 H Total Protein 6.6 Albumin 3.1 L Globulin 3.5 Albumin/Globulin Ratio 0.9 L Assessment & Plan Assessment & Plan narrative: 85-year-old male with acute respiratory failure at least in part secondary to acute on chronic systolic heart failure Plan: Patient will be admitted to the hospital for IV diuresis and medical management of his congestive heart failure. Will restart metoprolol to help with his tachycardia and eventually restart all his heart failure medications Will recheck labs in a.m. Oxygen for support Patient did not want a catheter Will do daily weights and strict I's and O's Will repeat echo Assessment 2. AFib with RVR at this time Plan: Will restart Coreg Will continue on outpatient Eliquis Will continue telemetry Assessment 3. Coronary artery disease with elevated troponin repeat is slightly decreased. Suspect demand ischemia due to AFib with RVR and acute on chronic heart failure Plan: We will manage these underlying problems and will continue with the Plavix and Eliquis and restart metoprolol continue with diuresis and continue to monitor. Will recheck troponin in a.m. Assessment 4. Rash on buttocks suspect Judy Plan: Will consult Wound, consider culture, nystatin Assessment 5. History of cellulitis over his olecranon I do not see any evidence of abnormality Plan we will follow. Will hold antibiotics for now Assessment 6. 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 Will optimize cardiac health and will monitor Assessment 7. DVT prophylaxis Plan: Patient lung Plavix and Eliquis Code status is full code. Discussed with patient and his DPOA and discussed likelihood of recovery and options at this point he prefers full code 80 minutes spent in speaking with ER physician, ER nurses, meeting with the patient in his caregiver and reviewing his clinic chart and his hospital chart and documentation Time-Based Coding :: [TOTAL MINUTES] spent with patient and on the chart (including review of chart, obtaining history, exam, reviewing outside data, placing orders, documenting exam and treatment plan, and counseling patient) on [DATE].
--- NOTE | 2025-09-04 16:32 | PC.NURSE ---
This RN with provider and medical technologist chief assisted patient to roll on his side at around 1pm to allow for the ED provider to see patient bottom as patient was complaining of pain. Upon review patient has bilateral redness and excoriated skin is pinkish red but blanchable. Patient area on bilateral gluteal effected areas are 13cm long and 4.5cm from anus. Area cleaned with soap and water and pat dry. Bilateral Alleyvn foam dressing placed. Pillow placed under patient left hip to relieve pressure. Primary nurse in room for dressing change and is aware.
[2025-09-04] MEDS: ALBUTEROL 2.5 MG/3 ML NEB (ADULT) INH (18:49)
[2025-09-04] MEDS: DOCUSATE 100 MG CAPSULE PO (21:24)
[2025-09-04] MEDS: AMIODARONE 200 MG TABLET 50 MG PO (21:37)
[2025-09-05] VITALS (10 sets, daily range): BP systolic 91–108; BP diastolic 55–80; PULSE 76–128; RESP 20; TEMP 35.2–36.9; O2SAT 97–100
[2025-09-05] MEDS: FUROSEMIDE 40 MG/4 ML VIAL IV ×4 (00:13→23:15)
--- NOTE | 2025-09-05 02:38 | DI.RAD.S_ITS ---
PROCEDURE: XR CHEST 1V INDICATIONS: SOB, desat TECHNIQUE: One view of the chest was acquired. COMPARISON: [facility], CR, XR CHEST 1V, 09/04/2025, 12:46. [facility], CR, XR CHEST 2V, 06/02/2025, 15:00. FINDINGS: Surgical changes and devices: Multiple EKG leads overlie the thorax. Lungs and pleura: Mild left and [id number] right costophrenic angle blunting. Probable elevated right diaphragm. Bibasilar opacities partially obscuring the diaphragms. Perihilar ground-glass densities noted. No pneumothorax seen. Mediastinum: Mediastinal contours appear normal. Heart size is normal. Atheromatous plaques are noted thoracic aorta. Bones and chest wall: No suspicious bony abnormalities. Soft tissues appear unremarkable. Multilevel degenerative disc disease noted. IMPRESSION: Small to moderate right and small left pleural effusion with bibasilar opacities likely representing atelectasis and/or infiltrates. No pneumothorax. Perihilar opacities may represent superimposed edema. Agree with preliminary interpretation by [facility]. Dictated by: Haily Mathis M.D. on 09/05/2025 at 7:33 Approved by: Haily Mathis M.D. on 09/05/2025 at 7:35
[2025-09-05] MEDS: ALBUTEROL 2.5 MG/3 ML NEB (ADULT) INH ×2 (03:03→21:39)
--- NOTE | 2025-09-05 03:08 | RT ---
called to eval patient , according to patient he aspirated some water. Spo2 was at 80% on arrival and patient breathing was labored. Coached patient to cough and placed on SVN tx for wheezing. Spo2 increased to 92% post tx. Per order, NT suction done X2 with clear secretions obtained. Patient responded well and continued to cough and help clear secretions. Xray also done
[2025-09-05 05:20] LABS: Add Manual Diff / Slide Review NO; Hematocrit 43.2 % (41-53); Hemoglobin 14.0 g/dL (13.5-17.5); Lymphocytes Absolute Auto 500 /uL (1100-4500); Mean Corpuscular HGB Conc 32.5 % (30-36); Mean Corpuscular Hemoglobin 33.7 PG (26-34); Mean Corpuscular Volume 103.7 fL (80-100); Platelet Count 231 X10^3/uL (150-400)
[2025-09-05 05:31] LABS: Alanine Aminotransferase 30 IU/L (<50); Albumin 3.0 g/dL (3.5-5.0); Albumin Globulin Ratio 0.9 (1.0-2.8); Alkaline Phosphatase 208 U/L (38-126); Blood Urea Nitrogen 36 mg/dL (9-20); Calcium 8.2 mg/dL (8.4-10.2); Carbon Dioxide 20 mmol/L (22-32); Chloride 105 mmol/L (98-107); Creatine Kinase 26 U/L (55-170); Estimated Glomerular Filt Rate > 60 mL/min (>60); Globulin 3.2 g/dL (1.7-4.1); Glucose 122 mg/dL (70-99); Potassium 4.1 mmol/L (3.4-5.1); Sodium 132 mmol/L (137-145); Total Protein 6.2 g/dL (6.3-8.2)
[2025-09-05 05:36] LABS: HEMOLYSIS 51 (0-50)
[2025-09-05 05:47] LABS: Troponin I 0.164 ng/mL (0.01-0.034)
--- NOTE | 2025-09-05 06:17 | PC.NURSE ---
Addendum entered by Lulú Garcia RN 09/05/25 08:20: Patient alert this morning, states his breathing has improved. SpO2 98% on RA while awake. NPO for speech eval. Original Note: scale technician: At approximately 0215, this RN heard patient having a coughing fit and immediately investigated. Patient stated that he took a sip of water himself, patient usually needs to be sitting at a higher HOB. Patient had a coughing fit that sounded moist although is not able to cough anything up. SpO2 in 80's, 7L oximask placed. Patient appears fatigued but is alert & responsive. Notified RT who assessed patient, albuterol tx given, oxygen increased to 10L oximask. Notified MD Schaefer of findings; 40mg IV lasix & CXR ordered. NT suctioning performed per RT, approved by MD Schaefer. SpO2 increased to mid 90's. Patient stated he was feeling better, work of breathing appears to have improved. 0600 update: Notified MD Schaefer of critical troponin, tachycardia (HR in 130's), and CXR results. Advised to wait one hour and allow patient to rest, if HR remains in 130's to give 12.5 mg PO Metoprolol.
[2025-09-05 07:04] LABS: Magnesium 2.2 mg/dL (1.6-2.3)
[2025-09-05 07:30] LABS: NT-proBNP (BNP-Adult 18+) 61900 pg/mL (<450)
[2025-09-05] MEDS: METOPROLOL IR 25 MG TABLET 12.5 MG PO (08:10)
[2025-09-05] MEDS: AMIODARONE 200 MG TABLET 50 MG PO ×2 (09:20→20:55)
[2025-09-05] MEDS: CLOPIDOGREL 75 MG TABLET PO (09:20)
[2025-09-05] MEDS: APIXABAN 5 MG TABLET 2.5 MG PO ×2 (09:20→20:54)
[2025-09-05] MEDS: DOCUSATE 100 MG CAPSULE PO ×2 (09:21→20:54)
[2025-09-05] MEDS: METOPROLOL ER 50 MG TABLET 25 MG PO (09:21)
--- NOTE | 2025-09-05 09:28 | P.PN_ITS ---
Subjective Subjective Date Patient Seen: 09/05/25 Time Patient Seen: 09:15 Interval history: chief complaint: respiratory and heart failure Pt feeling cautiously a bit better this morning after aggressive diuresis last night. He is on room air and able to converse no problem. Feels thirsty. Still NPO until speech can evaluate d/t aspiration concern. Denies any pain. Exam Vital Signs (past 8 hours): - 09/05/25 03:00 09/05/25 03:03 09/05/25 08:17 Temperature 98.5 F 97.3 F L Pulse Rate 128 H 113 H 92 H Respiratory Rate 20 20 Blood Pressure 108/80 108/74 Pulse Oximetry 98 97 98 Oxygen Delivery Method Oximask Oxygen Flow Rate 5 8 0 Fraction of Inspired Oxygen 50 09/05/25 09:21 Temperature Pulse Rate 94 H Respiratory Rate Blood Pressure Pulse Oximetry Oxygen Delivery Method Oxygen Flow Rate Fraction of Inspired Oxygen Fraction of Inspired Oxygen 50 SaO2/FiO2 Ratio 192 Oxygen Delivery Method Oximask Oxygen Flow Rate 0 Narrative Exam Narrative: cachectic laying in hospital bed Const Other: well developed poorly nourished HENMT Other: temporal wasting Resp Other: on room air and talking ok - generally clear to auscultation bilaterally some mild bibasilar crackles Cardio Other: regular rate and rhythm with frequent dropped beats and aortic ejection squeak minimal pedal edema GI Other: soft nontender active bowel sounds Neuro Other: alert awake oriented moving all limbs Psych Other: appropriate, decisional Objective Labs 09/05/25 05:07 09/05/25 05:07 Labs: Laboratory Results - last 24 hr 09/04/25 09/04/25 09/05/25 12:57 14:58 05:07 WBC 7.0 8.5 RBC 4.28 L 4.17 L Hgb 14.3 14.0 Hct 43.3 43.2 MCV 101.2 H 103.7 H MCH 33.4 33.7 MCHC 33.0 32.5 RDW 16.7 H 17.3 H Plt Count 270 231 Neut % (Auto) 82.8 H 87.2 H Lymph % (Auto) 10.2 L 6.1 L Reynolds % (Auto) 6.4 6.1 Eos % (Auto) 0.1 L 0.4 L Baso % (Auto) 0.5 0.2 Neut # (Auto) 5800 7400 H Lymph # (Auto) 700 L 500 L Reynolds # (Auto) 400 500 Eos # (Auto) 0 0 Baso # (Auto) 0 0 PT 16.9 H INR 1.5 H Sodium 134 L 132 L Potassium 4.1 4.1 Chloride 103 105 Carbon Dioxide 24 20 L BUN 36 H 36 H Creatinine 1.09 1.08 Estimated GFR > 60 > 60 BUN/Creatinine Ratio 33.0 H 33.3 H Glucose 109 H 122 H Lactate 2.5 H 2.2 H Calcium 8.5 8.2 L Magnesium Total Bilirubin 0.7 0.8 AST 46 61 H ALT 28 30 Alkaline Phosphatase 200 H 208 H Total Creatine Kinase 26 L Troponin I 0.164 H* 0.147 H* 0.164 H* NT-Pro-B Natriuret Pep 92327 H Total Protein 6.6 6.2 L Albumin 3.1 L 3.0 L Globulin 3.5 3.2 Albumin/Globulin Ratio 0.9 L 0.9 L 09/05/25 06:43 WBC RBC Hgb Hct MCV MCH MCHC RDW Plt Count Neut % (Auto) Lymph % (Auto) Reynolds % (Auto) Eos % (Auto) Baso % (Auto) Neut # (Auto) Lymph # (Auto) Reynolds # (Auto) Eos # (Auto) Baso # (Auto) PT INR Sodium Potassium Chloride Carbon Dioxide BUN Creatinine Estimated GFR BUN/Creatinine Ratio Glucose Lactate Calcium Magnesium 2.2 Total Bilirubin AST ALT Alkaline Phosphatase Total Creatine Kinase Troponin I NT-Pro-B Natriuret Pep 31567 H Total Protein Albumin Globulin Albumin/Globulin Ratio PFSH Medical History Hypertension Social History household members: none Smoking Status: Never smoker alcohol intake: current Assessment & Plan Assessment & Plan narrative: 85-year-old male with #acute respiratory failure at least in part secondary to #acute on chronic systolic and diastolic heart failure as a result of #severe aortic stenosis not suitable for repair in setting of #coronary atherosclerosis s/p stent all of which are factors in his #elevated troponinemia and BNP Cautiously improved on room air now after diuresis - hold IVF - continue diruesing - secured entrance monitor - BNP remains jerson high with elevated trops #AFib with RVR seems to have converted this morning he is feeling better continue Coreg and outpatient Eliquis Will continue telemetry #sacral pressure ulceer with possible latia #failure to thrive #severe protein calorie malnutrition Wound care consult, consider culture, nystatin Pt is generally not able to care for himself at home and will likely require placement #neutrophilia brewing issue noted on today's labs compared to yesterday's - normal WBC count but neuts over 80% - vitals look ok - monitor and check urine #possible aspiration NPO, speech therapy eval pending Dispo: pending various therapy evals but likely SNF MDM: Oscar Sanders, friend, DVT: emily Maxwelton: full PCP: Felipe Time-Based Coding :: [TOTAL MINUTES] spent with patient and on the chart (including review of chart, obtaining history, exam, reviewing outside data, placing orders, documenting exam and treatment plan, and counseling patient) on [DATE].
--- NOTE | 2025-09-05 11:00 | PT.IIE ---
Current Diagnoses Acute on chronic systolic (congestive) heart failure (09/04/25) Medical History (Last Reviewed 09/04/25 @ 20:51 by Lizett Chance MD) Hypertension Physical Therapy Inpatient Evaluation/Re-Eval M1 PT/OT-IP Prior Functional Status Start: 09/05/25 09:13 Freq: NEEDED Status: Active Protocol: Document 09/05/25 10:23 AMB (Rec: 09/05/25 10:59 AMB [id number]) Medical Review Prior Functional Status Medical History Yes Reviewed Mobility and Gait Patient lives in an apartment alone. He has a stair lift chair to get up to his apartment. Has a 4WW. Reports he was ambulating independently in the apartment with the walker before hospitalization. Has a friend who does grocery shopping and cooking. Going to pay someone once a month to help him with showering (this is a new plan). 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 Has History Comment a lot of friends who help. One friend is planning to get a motorhome to park next to the apartment so he can live close by for calls in the middle of the night, but this has not happened yet. M2 PT-IP Current Condition Start: 09/05/25 09:13 Freq: NEEDED Status: Active Protocol: Document 09/05/25 10:23 AMB (Rec: 09/05/25 10:59 AMB [id number]) Physical Therapy Current Condition Current Condition Evaluation Date 09/05/25 Treatment Diagnosis CHF Onset Date 09/04/25 M3 PT-IP Subjective Start: 09/05/25 09:13 Freq: NEEDED Status: Active Protocol: Document 09/05/25 10:23 AMB (Rec: 09/05/25 10:59 AMB [id number]) Subjective Physical Therapy Visit Type Type Initial Evaluation Visit Start Time 09:35 Visit Stop Time 10:15 Physical Therapy Visit Comments Patient Comments Patient is feeling better than yesterday, states he is willing to try to get up M4 PT-IP Mobility and Gait Start: 09/05/25 09:13 Freq: NEEDED Status: Active Protocol: Document 09/05/25 10:23 AMB (Rec: 09/05/25 10:59 AMB [id number]) PT-Bed Mobility Assessment Rolling Type of Rolling Log Rolling,Roll to Right Level of Assist Standby Assistance Supine to Sit Supine to Sit Standby Assistance Sit to Supine Sit to Supine Standby Assistance Scooting Scooting to Edge of Standby Assistance Bed Scooting Up and Down Standby Assistance in Bed PT-Transfer Assessment Sit to and From Stand Sit to and from Minimal Assistance Stand Equipment Transfer Assistive Front Wheeled Walker Device Transfers Transfer Destination Bed,Bedside Commode Transfer Technique Stand Step Pivot Transfer Ability Level of Assist Minimal Assistance Comments Mobility Comments Ryan required SBA and extra time for bed mobility. On room air. SpO2 ranging between 99 and down to 89 at the lowest. Cues for safety and planning transfers. Example: needs verbal cues to push up from the bed rather than using the walker. Transfers require Altaf for safety. Sit to stand and stand pivot transfer to the bedside commode required Altaf and Ryan did have increased dyspnea upon exertion. Gait Assessment Comments Gait Comments Not attempted due to safety/dyspnea M5 PT-IP Objective Assessments Start: 09/05/25 09:13 Freq: NEEDED Status: Active Protocol: Document 09/05/25 10:23 AMB (Rec: 09/05/25 10:59 AMB [id number]) Orientation Orientation/Cognition Level of Alertness Alert Gross Range of Motion Upper Extremity ROM Assessment Within Functional Limits Lower Extremity ROM Assessment Within Functional Limits M7 PT-IP Assessment and Plan Start: 09/05/25 09:13 Freq: NEEDED Status: Active Protocol: Document 09/05/25 10:23 AMB (Rec: 09/05/25 10:59 AMB [id number]) PT Summary Assessment and Plan Potential Rehabilitation Fair Potential Status of Condition Evolving at Evaluation Summary Impairments Strength,Balance,Bed Mobility,Transfers,Gait,Activity Tolerance Assessment Summary Ryan required Altaf for a sit to stand transfer and a transfer to the bedside commode. He also required assistance for pericare. He had dyspnea after the transfer from the bed to the commode and did not tolerate gait training at this time. His O2 stats did get down to 89 and he requested O2 when he got back to bed. He was able to perform all transfers on room air. Ryan very much wants to return home with friend support. In this PT's medical opinion he does need SNF rehab considering his poor mobility and medical complexity. If he absolutely refuses SNF care then he should consider home health and increased help from his friends who are very supportive. Goals Bed Mobility Goal Independent Transfer Goal Standby Assistance Gait Goal Minimal Assistance Gait Distance 50 Days to Meet Goals 7 Frequency of Treatment Frequency Of Once a Day Treatment Treatment Plan Physical Therapy Bed Mobility Training,Transfer Training,Gait Training, Treatment Plan Therapeutic Exercise Recommendations To Nursing Amount of Assist 2 Person Assist Needed Discharge Recommendations PT Discharge SNF Rehab Recommendations Transportation Needs Wheelchair/Cabulance at Discharge - PT assist 1
--- NOTE | 2025-09-05 15:02 | OT.IP.EVAL ---
Current Diagnoses Acute on chronic systolic (congestive) heart failure (09/04/25) Past Medical History (Last Reviewed 09/04/25 @ 20:51 by Lizett Chance MD) Hypertension Occupational Therapy Inpatient Evaluation/Re-Eval M1 PT/OT-IP Prior Functional Status Start: 09/05/25 09:13 Freq: NEEDED Status: Active Protocol: Document 09/05/25 14:36 ELYSE (Rec: 09/05/25 15:02 JAQUELINEMAALTHEA Desktop) Medical Review Prior Functional Status Medical History Yes Reviewed Communication able to make needs known Mobility and Gait Patient lives in an apartment alone. He has a stair lift chair to get up to his apartment. Has a 4WW. Reports he was ambulating independently in the apartment with the walker before hospitalization. Has a friend who does grocery shopping and cooking. Going to pay someone once a month to help him with showering (this is a new plan). Activities of Daily Pt reports he has been performing his BADLs. Pts friend Living and IADL's and DPOA present during eval, and reports pt has not been able to perform housework or cook lately. Both agree, pt has not been eating much lately. Pt has decided to have HH assist with bathing. Social History Household Members none Living Arrangements Apartment/Condo Number of Floors ( Two Floors Floors) Number of Stairs To He lives in an upstairs apartment with a chair lift. Enter/Railing? 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 Has History Comment a lot of friends who help. One friend is planning to get a motorhome to park next to the apartment so he can live close by for calls in the middle of the night, but this has not happened yet. M2 OT-IP Current Condition Start: 09/05/25 10:59 Freq: Status: Active Protocol: Document 09/05/25 14:36 ELYSE (Rec: 09/05/25 15:02 ELYSE Desktop) Occupational Therapy Current Condition Current Condition Evaluation Date 09/05/25 Treatment Diagnosis CHF, decreased self care Diagnosis Onset Date 09/04/25 M3 OT- IP Subjective and Pain Start: 09/05/25 10:59 Freq: Status: Active Protocol: Document 09/05/25 14:36 ELYSE (Rec: 09/05/25 15:02 JAQUELINEMAALTHEA Desktop) OT- Subjective Occupational Therapy Visit Type Type Initial Evaluation Visit Start Time 14:00 Visit Stop Time 14:35 Occupational Therapy Visit Comments Patient Comments Pt reclined in bed with friends present. Pt agreeable to participate in OT eval, but declines getting up to chair. Patient/Caregiver Pt wants to go home. Goals OT Pain Assessment Pain Present Pain Present Pain Reported Location Buttock Scale Used not rated, during sup<>sit M4 OT- IP ADL's Start: 09/05/25 10:59 Freq: Status: Active Protocol: Document 09/05/25 14:36 ELYSE (Rec: 09/05/25 15:02 JAQUELINEMAALTHEA Desktop) OT [id number] Comments OT Self-Feeding not observed Comments OT ADL-Grooming General Evaluation Grooming Ability Standby Assistance Comments OT Grooming Comments EOB on setup of supplies pt is able to comb hair OT ADL-Oral Care General Eval Oral Care Ability Minimal Assistance Comments Oral Care Comments Performed EOB. Pt has difficulty aiming for spit pail and needs to have clothes changed. OT ADL-Dressing General Eval Upper Body Dressing Maximum Assistance Ability Lower Body Dressing Minimal Assistance Ability Comments OT Dressing Comments Pt requires MAX A to change hospital gown. Pt able to change his socks with min A using figure 4 position EOB . OT ADL-Toileting Comments OT Toileting not observed, pt declines Comments OT ADL-Bathing Comments OT Bathing Comments pt declines, sponge bath may be best at this time M5 OT- IP IADL's Start: 09/05/25 10:59 Freq: Status: Active Protocol: Document 09/05/25 14:36 ELYSE (Rec: 09/05/25 15:02 JAQUELINEMAALTHEA Desktop) OT-Instrumental Activities of Daily Living Deficits IADL Deficits Deficits Identified Home Safety Awareness Awareness of Need Decreased Awareness for Assistance at Home Home Safety Comments Pt is insistent on dc home. Pts DPOA expresses concern for his safety on return home. OT educates pt on benefit of working with therapy to get stronger at SNF prior to dc. Pt reports that he hasn't been eating and has been having a difficult time caring for himself, despite this, pt does not see need for assist at home ( beyond assist with bathing). Pt demonstrates decreased safety awareness with respect to safety of dc home. Medication Management Medication Caregiver Provides Supervision Management Money Management Money Management Caregiver Provides Supervision Meal Preparation Meal Preparation Per pt and DPOA pt has not been eating for an extended Comments period of time. Motion Picture Camera Operator Motion Picture Camera Operator Pt reports he hasn't had assist but needs to hire Comments someone Driving Driving Caregiver Provides Assist M6 OT- IP Functional Cognition Start: 09/05/25 10:59 Freq: Status: Active Protocol: Document 09/05/25 14:36 ELYSE (Rec: 09/05/25 15:02 [facility] Desktop) Cognitive Factors Limiting Selfcare Function Cognitive Ability Level of Alertness Alert Patient Orientation Name,Age,Place,Situation Attention Span Capable of Focused Attention,Capable of Sustained Ability Attention Ability to Follow Able to Follow One Step Commands,Able to Follow Multi- Commands Step Commands Memory Description No Deficits Noted Safety Awareness Underestimates Need for Assistance OT- Vision and Hearing OT- Hearing Assessment OT- Hearing WFL Assessment OT- Vision Assessment Visual Acuity WFL M7 OT- IP Mobility and Balance Start: 09/05/25 10:59 Freq: Status: Active Protocol: Document 09/05/25 14:36 ELYSE (Rec: 09/05/25 15:02 [facility] Desktop) OT- Bed Mobility Assessment Supine to Sit Supine to Sit Assist Standby Assistance Sit to Supine Sit to Supine Assist Minimal Assistance Scooting Scooting to Edge of Standby Assistance Bed Scooting Up and Down Standby Assistance in Bed OT-Transfer Assessment Sit to and From Stand Sit to and from Minimal Assistance Stand Transfers Transfer Ability Minimal Assistance Technique Transfer Destination Bed Devices Transfer Assistive Gait Belt,Front Wheeled Walker Devices Comments Mobility Comments Pt performs sit>stand with min A and amb with FWW several steps towards HOB before returning to sit with min A. Pt BP supine 91/68, seated 103/66. Pts SpO2 on 3 L 85-100%. Pt had two instances of oxygen dropping to 85, OT provided vcs for PLB and O2 returned to 90s. OT- Gait Assessment Gait Gait Assistance Contact Guard Assist Required: Distance (Feet) 5 Assistive Devices Assistive Device Gait Belt,Front Wheeled Walker OT- Balance Assessment Sitting Balance and Reactions Static Sitting Good Balance Ability Dynamic Sitting Fair Balance Ability Standing Balance and Reactions Static Standing Fair Balance Ability Dynamic Standing Fair Balance Ability Comments Other Balance Tests/ Pt leans to his L side while sitting EOB for BADLs Deviations/Treatment : M8 OT- IP Objective Assessments Start: 09/05/25 10:59 Freq: Status: Active Protocol: Document 09/05/25 14:36 [facility] (Rec: 09/05/25 15:02 [facility] Desktop) OT Gross Range of Motion Upper Extremity Range of Motion Assessment Within Functional Limits OT Strength Upper Extremity Strength Assessment Bilaterally Impaired Hand Associate Drafter Strength Hand Dominance Right Comments Strength Comments B UE strength 4- grossly OT-Muscle Tone Assessment Muscle Tone WNL Yes OT Sensation Assessment Edema Edema Absent M9 OT- IP Assessment and Plan Start: 09/05/25 10:59 Freq: Status: Active Protocol: Document 09/05/25 14:36 ELYSE (Rec[facility] 09/05/25 15:02 [facility] Summary Assessment and Plan Potential Rehabilitation Fair Potential Analytic Complexity Moderate at Evaluation Summary OT Impairments Pain,Strength,Balance,Functional Mobility,Grooming, Dressing,Toileting,Bathing,Toilet Transfers,Shower Transfers,Activity Tolerance Progress Towards Progressing Toward Goals Goals Assessment Summary Pt is an 85 yo M with recent history of failure to thrive and SOB. Per chart review pt has been coming to his doctors office weekly with increased declines. Per pt and DPOA, pt has not been eating much at home. Pt states he has felt full. Pt has been refusing assistance at home for BADLs and housekeeping, but reports that he is now looking for assistance with bathing. Pt on 3L of oxygen and his O2 dropped as low as 85% while performing EOB ADLs. Pt educated on PLB and O2 returned to 90s. Pt performs sup>sit with SBA, sit>stand Min A, socks with min A, gown with max A, oral hygiene with min A, grooming with S all while seated EOB. Pt presents with decreased activity tolerance, muscle weakness, decreased balance, decreased functional tfs, decreased BADLs. Skilled OT services are appropriate to address these deficits. During eval, pt was insistent on dc home from hospital. If pt dc home he will require 24/7 assist. Pt would benefit most from SNF for rehab to improve pt deficits and promote return to recent PLOF. Goals Self-Feeding Goal Independent Grooming Goal Independent Dressing Goal Independent Toileting Goal Independent Bathing Goal Independent,Grab Bars,Hand Held Shower Sprayer Toilet Transfer Goal Independent,Grab Bars Shower Transfer Goal Independent,Walk-in Shower,Shower Chair,Grab Bars Days to Meet Goals 10 Frequency of Treatment Other frequency 5x/wk Treatment Plan OT Treatment Plan ADL Training,Functional Mobility,Therapeutic Exercises, Patient/Family Education,Discharge Planning Discharge Recommendations OT Discharge Home with 24/7 Assist Available,Home Health,SNF Rehab Recommendations Other Discharge Pt would benefit most from SNF. Recommendations Transportation Needs Private Vehicle,Wheelchair/Cabulance at Discharge
--- NOTE | 2025-09-05 16:08 | DIET.CONS ---
Dietary Consultation Note Admission Date: 09/04/2025 15:54 Assessment: 85 y M admitted for CHF, hypoxemia Attempted visit, pt sleeping. EMR reviewed. Pt with failure to thrive and reduced appetite and SOB, not eating/not making meals. Dx with severe protein calorie malnutrition and noted temporal wasting. Called ASSISTANT CHIEF NURSING OFFICER to verify diet preferences and adjusted diet order to suite these. Ht: 170.18 cm Wt: 68.039 kg BMI: 23.5 UBW: 75 kg Dec 2024 Last BM: 09/02/25 (09/04/25 19:57) MNA: 8 Moe Score: 16 Diet: 09/05/25 Dinner Clear Liquid Diet Diet Modifications: No jello, no solids per ASSISTANT CHIEF NURSING OFFICER Liquid consistency: Normal/Thin Labs: RBC 4.17 X10^6/uL (4.5-5.9) L 09/05/25 05:07 Hgb 14.0 g/dL (13.5-17.5) 09/05/25 05:07 Hct 43.2 % (41-53) 09/05/25 05:07 Creatinine 1.08 mg/dL (0.66-1.25) 09/05/25 05:07 Lactate 2.2 mmol/L (0.7-2.1) H 09/04/25 14:58 NT-Pro-B Natriuret Pep 04921 pg/mL (<450) H 09/05/25 06:43 Nutrition Diagnosis: Severe chronic protein calorie malnutrition r/t difficulty caring for self as evidenced by <50% of estimated energy needs in last month (severe), severe muscle mass loss (temples), failure to thrive, unable to prepare self food Interventions: Ensure clear TID until MBSS is completed and new diet orders placed per ASSISTANT CHIEF NURSING OFFICER EER: 1700 kcals (25 kcals/kg per BMI) 80 g protein (wounds, PCM. 1.2 g/kg) Monitoring/Evaluations: following for diet reccs per ASSISTANT CHIEF NURSING OFFICER Electronically Signed by: Jacqueline Shaw 09/05/25 16:08 Clinical Dietitian [address] [id number]
--- NOTE | 2025-09-05 16:20 | CM.DANOTE ---
DCP Assessment Note: Pt is a 85yo male, resident of [place], is admitted for acute CHF, wounds. 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 Pt's Primary Care Provider is Dr. Jairo Wang and insurance is Medicare and [facility]. Reviewed chart and discussed with multidisciplinary team pt's medical status and initial discharge needs. Per Provider, pt would benefit from SNF/LTC planning; currently will get diuresis and wound care while inpatient. Per PT/OT, recommending SNF Rehab. DCP met w/patient at bedside; introduced self and role. Patient was found in bed, oriented but very somnolent, cooperative with assessment. Pt confirmed living situation and good support in local friends. Pt expressed preference in discharge home, declines SNF recommendations and apprehensive with home health. Patient states he is able to get around his apartment independently. SECURITY DOOR INSTALLER discussed PT/OT recommendations for pt safety, pt still declines SNF at this time. SECURITY DOOR INSTALLER provided Medicare Choice list to patient, patient agreeable to continue to collaborate with MD and friends regarding safe discharge plans. SECURITY DOOR INSTALLER spoke with pt DPOA/Friend, Varghese Sanders, who spoke of concerns of pt returning home by himself, It was a miracle we even got him to the hospital. He cannot go back home because it's not safe. He doesn't eat, he doesn't sleep, he hasn't showered in weeks. DPOA reports pt had a very rapid decline in activity in the last 6-8 weeks. Patient DPOA states he is hopeful hosptial staff can continue to encourage pt to at least go to SNF Rehab for strength building as they work on longterm care plans. DPOA states pt has the resources to pay for private caregiving or assisted living but pt has declined all offers. DPOA reports pt no longer drives himself and relies on others for transport but in the last few weeks, he has not been able to get out of his recliner without someone actually lifting him. DPOA states if pt does agree to SNF Rehab, he would likely have a preference to a [facility] only. Plan: Plan of care evolving, anticipating SNF Rehab vs. home health with at least 12h private caregiving for initial recovery. CM team will follow closely for coordination of discharge plans. LUIZ Main Discharge Planning/Care Management CM Discharge Assessment Start: 09/04/25 16:06 Freq: Status: Active Protocol: Document 09/05/25 16:16 MW (Rec: 09/05/25 16:19 MW Desktop) Discharge Planning Assessment Assigned Discharge RAFAEL [employer] Head Bone Grinder Provider Dr. Jairo Wang Insurance Medicare,Other (enter in Comment) Insurance Comment [employer] (secondary) DPOA/Assigned Varghese Marilyn, POA/Friend Designee Name Contact Information [phone] Advance Directives? Yes Advance Directives No on File History Provided By Patient,Medical Record Has Patient been No admitted in last 30 days? 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 Needs Assistance Bathing,Grooming,Meal Prep,Toileting,Managing With Medications,Home Chores / Shopping Caregiver for No Another DME Already Rented / FWW / Walker Owned Comment stair climber to assist with getting him to second floor of home where he lives Discharge Plan [facility] Facility Transportation SNF vs. Friend Arrangement Medicare Choice List Yes Provided Medicare choice list patient,family reviewed on electronic tablet with Whiteboard Updated Yes in Patient Room with name and ext. # of Electronics Manufacturer Comment [phone] Review Status In Process Please Provide Date 09/05/25 Initial DC Assessment Was Performed Next Review Type Continued Stay Review
--- NOTE | 2025-09-05 16:42 | ST.IPCSEOM ---
Visit Care Team Role Provider Type Lizett Chance MD Emergency Provider Physician Referring Provider Specialty: Emergency Medicine Address: [address] [place] [address], [id number] Fax: Email: [email or web address] Jairo Russo MD Attending Provider Physician Primary Care Provider Specialty: Family Practice Address: [address] [place] [address], [id number] Email: [email or web address] Carito Schaefer MD Admit Provider Physician Other Providers Specialty: Family Practice Address: [address] [place] [address], [id number] Email: [email or web address] Current Diagnoses Acute on chronic systolic (congestive) heart failure (09/04/25) Past Medical History (Last Reviewed 09/04/25 @ 20:51 by Lizett Chance MD) Hypertension (Medical) Speech-Language Pathology Swallow 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 Schaefer Reason for Referral Coughing on water, possible aspiration Setting Assessment Location Acute Care Visit Type Note Type Initial evaluation Next Note Type Next Note Type Treatment Note Patient Information Identification Type Name,Wristband History Per H&P: Very pleasant 85-year-old male who is under the primary care of Dr. russo. Due to failing health patient is seen weekly at the clinic and was last seen on August 31. Patient was seen by his homeopathic doctor on August 27. On August 31 Dr. rusos stopped patient's enalapril, metoprolol and spironolactone due to low blood pressure and weakness. Patient also had rash on buttocks that was being treated as well as a cellulitis on his elbow. This is much better. Patient has been failing to thrive with no appetite and was placed on Megace as well. He was here today with his DPOA and caregiver, Vega Sanders. He states that he progressively worsened over the end of the week and was very short of breath today and that is why he was brought to the ER for evaluation. He was found to be hypoxemic with significant fluid overload and markedly elevated BNP. He was given IV Lasix and placed on oxygen currently at 4 L nasal cannula and is being admitted to the hospital for further treatment and workup. Patient has a complicated medical history as mentioned above. Past medical history: 1. Coronary artery disease with recent stent placement approximately 2 months ago. He was followed at [facility] and [facility] 2. Systolic heart failure with last ejection fraction in December when he was last admitted 20-25% ejection fraction 3. AFib with controlled ventricular rate 4. Severe 5. PVD 6. Intolerance to statin Pt referred for ST evaluation d/t Pt observed coughing on water, possibly aspirating, however cannot confirm. ST assessed swallow function to determine safest and most efficient least restrictive diet. Subjective Pt sitting upright in bed with caregiver at bedside. Observations Caregiver reports Pt eats very little at home and mostly drinks Ensures. Caregiver reports when Pt does eat solids it's in very small pieces. Pt denies any recent PNA, however states he has been coughing up phlegm at home for many months. Nursing report Pt observed having difficulties swallowing pills with water. Pt Ox3, and was able to answer all questions, however SOB with O2 in place via nasal cannula for PO trials. Reported by Patient/Caregiver Other Symptoms Coughing,Difficulty swallowing liquids,Difficulty swallowing pills Current Diet NPO Baseline Feeding Independent in self-feeding Method The IDDSI Framework Protocol: IDDSI.1 Objective Assessment Mental Status Alert,Responsive,Cooperative Oral Integrity WFL Dentition Within normal limits Lip Function Moderate impairment Observation of Lips Symmetrical at Rest Pucker Reduced strength Alternating Pucker/ Reduced range of motion Lip Retraction Tongue Function Mild impairment Observations of Within normal limits Tongue at Rest Tongue Retraction Reduced strength Jaw Function Within normal limits Respiratory Severe impairment Sufficiency Food and Liquid Trials Position During Upright (90 degrees) Assessment Liquids Trialed Ice chips,Thin (IDDSI 0) Solid Trials Purred (IDDSI 4),Regular (IDDSI 7) Administration Type Tea spoon,Cup single sip,Needs some assistance Oral Impairment Severely impaired Oral Phase Comments Pt consumed 1 bite of pudding, 1 small bite of a turkey sandwich per his request d/t him stating he ate a turkey sandwich while in the hospital last night without difficulties, ice chips and about 2 oz of thin water via cup. Pt positioned upright 90 degrees for PO trials. Pt able to drink from cup independently, however required feeding assistance. Pt SOB to the point it was difficult for him to talk, however O2 stats read 98%. For pudding, Pt exhibited adequate removal of pudding off of spoon, prolonged bolus holding and manipulation, anterior spillage bilaterally , diffuse oral stasis, delayed ap transport, no overt s /s of aspiration such as coughing or choking. For sandwich, Pt was presented with a small piece and exhibited prolonged mastication and bolus formation, poor oral containment resulting in anterior spillage of masticated sandwich with oral stasis, no overt s/s of aspiration such as coughing or choking, however unable to determine how much of solids were swallowed d/t majority of them observed to be spilling from mouth. For ice chips via tsp, Pt exhibited good oral acceptance, anterior spillage however not as severe as with solids, 1x delayed cough reflex. Thin water via cup, Pt took adequate sip size, good rate, timely ap transport, suspected delay in swallow, mild anterior spillage, no overt s/s of aspiration such as coughing or choking. Pharyngeal Moderately impaired Impairment Pharyngeal Phase See oral phase comments. Comments Fatigue/Endurance Mild fatigue The IDDSI Framework Protocol: IDDSI.1 Findings Swallowing Function Oropharyngeal phase dysphagia Severity of Swallow Moderately-severely impaired Impairment Prognosis Fair Impact on Safety and Risk for aspiration,Risk for inadequate nutrition/ Functioning hydration Recommendations Instrumental Yes Assessment Swallowing Treatment Yes Frequency Daily while inpatient Recommended Liquids Thin (IDDSI 0) Other Pt presents with mod-severe oropharyngeal dysphagia. ST Recommendations recommends clear liquids only, no jell-o with the below safe swallowing strategies in place. ST recommends Modified Barium Swallow study in order to rule out silent aspiration. ST educated Pt and his caregiver on diet recommendations and safe swallowing strategies, and importance of ensuring mouth is clean before and after consuming anything PO. ST communicated recommendations with nursing, charging machine operator, and MD. Safety Precautions/ Remain upright (90 degrees) during all oral intake, Swallowing Upright position at least 30 minutes after meals,Small Recommendations bites and sips when eating,Slow rate; swallow between bites,Alternate liquids and solids,Strict oral care after intake Medication As Tolerated Recommendations Education Patient/Caregiver Described results of evaluation,Patient expressed Education understanding of evaluation,Patient expressed agreement with goals & treatment plans,Family/caregivers expressed understanding of evaluation,Family/caregivers expressed agreement with goals & treatment plans, Patient expressed understanding of safety precautions, Family/caregivers expressed understanding of safety precautions,Patient requires further education/training ,Family/caregivers require further education/training Goals Short-term Goals STG 1. Pt will participate in MBS in order to further analyze the swallow. STG 2: Pt will tolerate prescribed diet with <5% overt s/s of aspiration/dysphagia with use of compensatory swallowing strategies and minimal cues. Long-term Goals LTG 1: Patient will consume safest and most efficient least restrictive diet with no clinical s/s of aspiration or dysphagia 100% of the time in order to meet primary nutrition/hydration needs.
[2025-09-05] MEDS: NYSTATIN CREAM 30 GM 1 APPLIC TOP ×2 (16:57→21:51)
[2025-09-06] VITALS (8 sets, daily range): BP systolic 88–96; BP diastolic 46–65; PULSE 68–96; RESP 18–20; TEMP 35.7–36.6; O2SAT 92–98
[2025-09-06 00:31] LABS: Appearance Urine UA CLEAR; Bilirubin Urine UA NEGATIVE (NEGATIVE); Color Urine UA YELLOW; Glucose Urine UA NEGATIVE (Negative); Ketones Urine UA NEGATIVE (NEGATIVE); Leukocyte Esterase Urine UA NEGATIVE (NEGATIVE); Nitrite Urine UA NEGATIVE (Negative); Occult Blood Urine UA NEGATIVE (Negative); Protein Urine UA NEGATIVE (Negative); Specific Gravity Urine UA 1.020 (1.000-1.035); Urobilinogen Urine UA 0.2 E.U./dL (0.2); pH Urine UA 5.5 (4.5-8.0)
[2025-09-06 00:38] LABS: Culture Indicated Urine Cult Not Indicated
--- NOTE | 2025-09-06 08:26 | PM.PN.1 ---
Subjective Subjective Date Patient Seen: 09/06/25 Time Patient Seen: 08:26 Interval history: Patient seen in follow acute respiratory failure AFib sacral pressure possible aspiration patient overall feeling slightly better today. Still short of breath. No chest pain. No orthopnea. Got up a little bit yesterday but no other change. Still on clear liquid diet. Awaiting speech evaluation Exam Vital Signs (past 8 hours): - 09/06/25 03:00 09/06/25 05:00 Temperature 97.4 F L Pulse Rate 86 Respiratory Rate 18 Blood Pressure 95/59 L Pulse Oximetry 96 Oxygen Flow Rate 3 0 Fraction of Inspired Oxygen 45 SaO2/FiO2 Ratio 222 Oxygen Delivery Method Nasal Cannula,Aerosol Mask Oxygen Flow Rate 0 Narrative Exam Narrative: Alert elderly male no acute respiratory distress Lungs with basilar crackles heart is regular rate and rhythm abdomen is soft positive bowel sounds nontender extremities without significant edema Objective Labs 09/05/25 05:07 09/05/25 05:07 Labs: Laboratory Results - last 24 hr 09/05/25 23:45 Urine Color Yellow Urine Appearance Clear Urine pH 5.5 Ur Specific Hondo 1.020 Urine Protein Negative Urine Glucose (UA) Negative Urine Ketones Negative Urine Occult Blood Negative Urine Nitrate Negative Urine Bilirubin Negative Urine Urobilinogen 0.2 Ur Leukocyte Esterase Negative Urine RBC 0-1/hpf Urine WBC 0-1/hpf Ur Squamous Epith Cells 0-1 /hpf Calcium Oxalate Crystal Few H Urine Bacteria None seen Hyaline Casts 10-30/lpf Ur Culture Indicated? Cult not indicated Vol Urine Centrifuged 10ml (spun) [facility] Medical History Hypertension Social History household members: none Smoking Status: Never smoker alcohol intake: current Assessment & Plan Assessment & Plan narrative: Acute respiratory failure secondary to chronic systolic and diastolic heart failure. Patient improve but slowly. EF is 15% on echo yesterday. Certainly concerning. I guess will see if things improve. Apparently some of this is secondary to his aortic stenosis. He did have elevated troponins but BNP is significantly increased. Main issue. We will continue aggressive diuresis and follow. Clinically mildly improved. Severe aortic stenosis apparently not suitable for repair has been at the [facility]. Appears to be a terminal event if not repaired patient would like to have it repaired will discuss with EXPANDED FUNCTION DENTAL ASSISTANT. Not sure of the issue with repair certainly nothing that is going to happen during this admission. Mild elevation in troponin. Etiology isn't clear probably could be demand. Seems to be stable at this point. Having no clinical symptoms we will follow patient with recent stent placement. Appears to be stable from that place AFib with AVR. Resolved. Certainly at risk for repeat. Continue Coreg outpatient Eliquis Sacral pressure ulcer possible Judy failure to thrive severe protein malnutrition will continue wound care consult patient is generally not able to care for himself at this point but will continue motion and wound care. Will need continued follow-up Neutrophilia will continue to rechecked in the morning Hyponatremia rechecked labs tomorrow and potassium given aggressive diuresis Possible aspiration will continue diet and await speech therapist no evidence of infection Full code DVT on Eliquis Disposition will need placement probably will see how things go. Certainly not ready for transfer at this time. 55 minutes spent on chart review with the patient nursing orders dictation Time-Based Coding :: [TOTAL MINUTES] spent with patient and on the chart (including review of chart, obtaining history, exam, reviewing outside data, placing orders, documenting exam and treatment plan, and counseling patient) on [DATE].
[2025-09-06] MEDS: APIXABAN 5 MG TABLET 2.5 MG PO ×2 (10:51→20:08)
[2025-09-06] MEDS: CLOPIDOGREL 75 MG TABLET PO (10:51)
[2025-09-06] MEDS: SODIUM CHLORIDE 0.9% FLUSH 10 ML IV ×2 (10:51→20:14)
--- NOTE | 2025-09-06 11:15 | OT.IP.TRT ---
Current Diagnoses Acute on chronic systolic (congestive) heart failure (09/04/25) Occupational Therapy Treatment Note M2 OT-IP Current Condition Start: 09/05/25 10:59 Freq: Status: Active Protocol: Document 09/05/25 14:36 ELYSE (Rec: 09/05/25 15:02 [facility]) Occupational Therapy Current Condition Current Condition Evaluation Date 09/05/25 Treatment Diagnosis CHF, decreased self care Diagnosis Onset Date 09/04/25 M3 OT- IP Subjective and Pain Start: 09/05/25 10:59 Freq: Status: Active Protocol: Document 09/06/25 11:40 CCC (Rec: 09/06/25 11:46 CCC Desktop) OT- Subjective Occupational Therapy Visit Type Type Treatment Note Visit Start Time 11:15 Visit Stop Time 11:35 Occupational Therapy Visit Comments Patient Comments Pt having low BP per nursing. Pt agreed to do SLUMS. Patient/Caregiver TO go home. Goals OT Pain Assessment Pain When Pain Assessed At Rest Pain Present Pain Present Denied Pain M4 OT- IP ADL's Start: 09/05/25 10:59 Freq: Status: Active Protocol: Document 09/05/25 14:36 ELYSE (Rec: 09/05/25 15:02 [facility]PRNST[facility] Desktop) OT [id number] Comments OT Self-Feeding not observed Comments OT ADL-Grooming General Evaluation Grooming Ability Standby Assistance Comments OT Grooming Comments EOB on setup of supplies pt is able to comb hair OT ADL-Oral Care General Eval Oral Care Ability Minimal Assistance Comments Oral Care Comments Performed EOB. Pt has difficulty aiming for spit pail and needs to have clothes changed. OT ADL-Dressing General Eval Upper Body Dressing Maximum Assistance Ability Lower Body Dressing Minimal Assistance Ability Comments OT Dressing Comments Pt requires MAX A to change hospital gown. Pt able to change his socks with min A using figure 4 position EOB . OT ADL-Toileting Comments OT Toileting not observed, pt declines Comments OT ADL-Bathing Comments OT Bathing Comments pt declines, sponge bath may be best at this time M5 OT- IP IADL's Start: 09/05/25 10:59 Freq: Status: Active Protocol: Document 09/05/25 14:36 ELYSE (Rec: 09/05/25 15:02 [facility]ELINEPRNSTON Desktop) OT-Instrumental Activities of Daily Living Deficits IADL Deficits Deficits Identified Home Safety Awareness Awareness of Need Decreased Awareness for Assistance at Home Home Safety Comments Pt is insistent on dc home. Pts DPOA expresses concern for his safety on return home. OT educates pt on benefit of working with therapy to get stronger at SNF prior to dc. Pt reports that he hasn't been eating and has been having a difficult time caring for himself, despite this, pt does not see need for assist at home ( beyond assist with bathing). Pt demonstrates decreased safety awareness with respect to safety of dc home. Medication Management Medication Caregiver Provides Supervision Management Money Management Money Management Caregiver Provides Supervision Meal Preparation Meal Preparation Per pt and DPOA pt has not been eating for an extended Comments period of time. Assembling Inspector Assembling Inspector Pt reports he hasn't had assist but needs to hire Comments someone Driving Driving Caregiver Provides Assist M6 OT- IP Functional Cognition Start: 09/05/25 10:59 Freq: Status: Active Protocol: Document 09/06/25 11:40 [facility] (Rec: 09/06/25 11:46 [facility] Desktop) Cognitive Factors Limiting Selfcare Function Cognitive Ability Level of Alertness Alert Patient Orientation Name,Age,Birthday,Month,Day of Week,Place,Situation Attention Span Capable of Focused Attention,Capable of Sustained Ability Attention Ability to Follow Able to Follow One Step Commands Commands Memory Description Short Term Impaired Executive Function Unable to Filter Distractions,Unable to Remember Ability Details Cognitive Tests SLUMS Pt scored 22/30 which implies mild neurocognitive disorder. Pt thought it was 2074, able to states 8 animals in one minute, and not able to recall any of the 5 words after time passed. Cognitive Comments Cognitive Assessment Pt feels that he is at 50-70% of his baseline Comments cognitively and physically. Pt states has assist for med and bills. Pt also states will hire 24/7 assist as needed. M7 OT- IP Mobility and Balance Start: 09/05/25 10:59 Freq: Status: Active Protocol: Document 09/05/25 14:36 ELYSE (Rec: 09/05/25 15:02 ELYSE Desktop) OT- Bed Mobility Assessment Supine to Sit Supine to Sit Assist Standby Assistance Sit to Supine Sit to Supine Assist Minimal Assistance Scooting Scooting to Edge of Standby Assistance Bed Scooting Up and Down Standby Assistance in Bed OT-Transfer Assessment Sit to and From Stand Sit to and from Minimal Assistance Stand Transfers Transfer Ability Minimal Assistance Technique Transfer Destination Bed Devices Transfer Assistive Gait Belt,Front Wheeled Walker Devices Comments Mobility Comments Pt performs sit>stand with min A and amb with FWW several steps towards HOB before returning to sit with min A. Pt BP supine 91/68, seated 103/66. Pts SpO2 on 3 L 85-100%. Pt had two instances of oxygen dropping to 85, OT provided vcs for PLB and O2 returned to 90s. OT- Gait Assessment Gait Gait Assistance Contact Guard Assist Required: Distance (Feet) 5 Assistive Devices Assistive Device Gait Belt,Front Wheeled Walker OT- Balance Assessment Sitting Balance and Reactions Static Sitting Good Balance Ability Dynamic Sitting Fair Balance Ability Standing Balance and Reactions Static Standing Fair Balance Ability Dynamic Standing Fair Balance Ability Comments Other Balance Tests/ Pt leans to his L side while sitting EOB for BADLs Deviations/Treatment : M8 OT- IP Objective Assessments Start: 09/05/25 10:59 Freq: Status: Active Protocol: Document 09/05/25 14:36 [facility] (Rec: 09/05/25 15:02 [facility] Desktop) OT Gross Range of Motion Upper Extremity Range of Motion Assessment Within Functional Limits OT Strength Upper Extremity Strength Assessment Bilaterally Impaired Hand Housesmith Strength Hand Dominance Right Comments Strength Comments B UE strength 4- grossly OT-Muscle Tone Assessment Muscle Tone WNL Yes OT Sensation Assessment Edema Edema Absent M9 OT- IP Assessment and Plan Start: 09/05/25 10:59 Freq: Status: Active Protocol: Document 09/06/25 11:40 [facility] (Rec: 09/06/25 11:46 [facility] Desktop) OT Summary Assessment and Plan Potential Rehabilitation Fair Potential Analytic Complexity Moderate at Evaluation Summary OT Impairments Pain,Strength,Balance,Functional Cognition,Functional Mobility,Grooming,Dressing,Toileting,Bathing,Toilet Transfers,Shower Transfers,Activity Tolerance Progress Towards Progressing Toward Goals Goals Assessment Summary Pt scored 22/30 on the SLUMS which implies mild neuro cognitive disorder. Pt insistent on going home and states does not want to go to SNF and will instead hire 24/7 assist if needed. Pt will also benefit form home aubree. Goals Self-Feeding Goal Independent Grooming Goal Independent Dressing Goal Independent Toileting Goal Independent Bathing Goal Independent,Grab Bars,Hand Held Shower Sprayer Toilet Transfer Goal Independent,Grab Bars Shower Transfer Goal Independent,Walk-in Shower,Shower Chair,Grab Bars Days to Meet Goals 10 Frequency of Treatment Other frequency 5x/wk Treatment Plan OT Treatment Plan ADL Training,Functional Mobility,Therapeutic Exercises, Patient/Family Education,Discharge Planning Other Treatment Standing ADL's at the sink. Recommendations and Next Treatment Focus Discharge Recommendations OT Discharge Home with 24/7 Assist Available,Home Health,SNF Rehab Recommendations Other Discharge Pt would benefit most from SNF. Recommendations Transportation Needs Private Vehicle,Wheelchair/Cabulance at Discharge
--- NOTE | 2025-09-06 11:38 | ST.IPDYTX ---
Visit Care Team Role Provider Type Lizett Chance MD Emergency Provider Physician Referring Provider Specialty: Emergency Medicine Address: [address] [place] [address], [address] Fax: Email: [email or web address] Jairo Wang MD Attending Provider Physician Primary Care Provider Specialty: Family Practice Address: [address] [place], [address] Email: [email or web address] Carito Schaefer MD Admit Provider Physician Other Providers Specialty: Family Practice Address: [facility] [place], [address] Email: [email or web address] ACCOUNTS PAYABLE OR RECEIVABLE CLERK Dysphagia Treatment ACCOUNTS PAYABLE OR RECEIVABLE CLERK Dysphagia Treatment Start: 09/06/25 11:24 Freq: Status: Active Protocol: Document 09/06/25 11:24 MA (Rec: 09/06/25 11:38 MA Desktop) Dysphagia Treatment Session Time Visit Start Time 10:30 Visit Stop Time 11:15 Total Visit Minutes 45 Visit Information Visit Number 2 Setting Assessment Location Acute Care Patient Information Subjective Pt sitting upright in chair in room with breakfast tray Observations in front of him consisting of clear liquids. His friend is present, as well as nurse Linn to take vitals and administer meds. Pt with O2 in place via nasal cannula. Pt was able to communicate more effectively today without loosing his voice. He was awake, alert and oriented x3. Pt requested more substantial food and wanting more solid foods. ST educated Pt on reason for current diet and plan for today. Treatment Liquids Trialed Thin (IDDSI 0) Solids Trialed Purred (IDDSI 4),Regular (IDDSI 7) Administration Type Tea Spoon,Controlled Cup Sip,Self-Feeding Oral Strategies Upright at 90 degrees Treatment Activities Assessment of swallow function with therapeutic PO trials of IDDSI 7 regular solids, and IDDSI 4 pureed solids in order to determine safest and most efficient least restrictive diet. The IDDSI Framework Protocol: IDDSI.1 Assessment Patient Response to Good Treatment Rehab Potential Fair Assessment of Pt consumed about 4 oz of thin water/tea via cup, 2 Improvement bites of applesauce, 1 vic cracker and about 1/4th of a turkey sandwich. Pt able to feed self and drink from cup. For thin water via cup, Pt exhibited adequate sip size and rate, mild anterior spillage ( improvements from yesterday), delayed ap transport, suspected delay in swallow, no immediate coughing or choking. For bites of applesauce, Pt exhibited prolonged bolus manipulation and formation, extended ap transport, suspected delay in swallow, no overt s/s of aspiration. For vic cracker and turkey sandwich, Pt exhibited adequate bite size and rate, prolonged mastication (~3 minutes per bite), diffuse oral stasis, mild anterior spillage of masticated solids, piecemeal deglutition, prolonged ap transport, no overt s/s of aspiration. Pt independently alternated liquids/solids to assist with intake. Pt exhibited delayed cough reflex post PO trials with ST unable to determine if d/ t PO intake vs baseline cough. ST educated Pt on safe swallowing strategies such as small bites, alternating liquids/solids, consistent oral care before/after meals to prevent aspiration PNA, sitting upright 90 degrees during meals and for about 30 minutes after. Pt verbalized understanding. ST recommends diet upgrade to IDDSI 5 minced and moist with IDDSIO 0 thin liquids and Modified Barium Swallow study. ST communicated with MD and nursing. Nursing placed MBS order. Recommendations Recommendations Upgrade Diet Order Liquids Order Thin (IDDSI 0) Diet Order Minced & Moist (IDDSI 5) Medication As Tolerated Recommendations Aspiration Precautions Recommended Upright at 90 Degrees,Alternate Liquids/Solids,Small Precautions Bites/Sips Treatment Plan Appropriate for Yes Continued Therapy Therapy ST to f/u with Pt following MBS Recommendations
[2025-09-06] MEDS: FUROSEMIDE 40 MG/4 ML VIAL IV (15:21)
[2025-09-06] MEDS: ALBUTEROL 2.5 MG/3 ML NEB (ADULT) INH (15:55)
--- NOTE | 2025-09-06 15:57 | PT-IP ANOTE ---
checked on pt and pt refused PT. pt stated that he is tired today and does not want to do PT.
--- NOTE | 2025-09-06 16:08 | CM.DPNOTE ---
Addendum entered by RAFAEL Robert 09/06/25 16:31: per Nora at , can accept when he's medically stable (could be as soon as tomorrow if he's ready) SL Original Note: DCP note CLEAN RICE BROKER reviewed EMR therapies continue to rec SNF placement. CLEAN RICE BROKER met with pt and MEL Kwong in room. reviewed DCP options. CLEAN RICE BROKER provided brochures for all HH agencies in [place]/senior resources booklet for PP CGs in the home. After lengthy conversation, pt agreeable to trying SNF at . 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 CLEAN RICE BROKER completed PASRR. Sent ref to Nora at . reviewing. acceptance pending P: anticipate dc to if able to accept when medically stable. CM team will continue to follow closely for DCP Coordination RAFAEL Robert
--- NOTE | 2025-09-06 17:22 | ST.SWALLOW ---
Visit Care Team Role Provider Type Roseanna Reed PA-C Other Providers Advanced Control Room Technician Specialty: Medical Wound Care Address: [address] [place] [address], [address] Email: [email or web address] Ness Waggoner DPM Other Providers Non-Staff Specialty: Podiatry Address: [address] [place] [address], [address] Email: Santi Whittington MD Other Providers Physician Specialty: Wound Care Address: [address] [place] [address], [address] Email: Ti Talavera MD Other Providers Non-Staff Specialty: Wound Care Address: [address] [place] [address], [address] Email: [email or web address] Lizett Chance MD Emergency Provider Physician Referring Provider Specialty: Emergency Medicine Address: [address] [place] [address], [address] Fax: Email: [email or web address] Jairo Russo MD Attending Provider Physician Primary Care Provider Specialty: Family Practice Address: [address] [place] [address], [address] Email: [email or web address] Carito Schaefer MD Admit Provider Physician Other Providers Specialty: Family Practice Address: [address] [place] [address], [address] Email: [email or web address] Modified Barium Swallow Study IT PROFESSIONAL Modified Barium Swallow Study Start: 09/06/25 16:03 Freq: Status: Active Protocol: Document 09/06/25 16:03 LNK (Rec: 10/28/25 17:22 LNK Desktop) Modified Barium Swallow Study Total Time Visit Start Time 13:00 Visit Stop Time 13:45 Total Visit Minutes [address] Crowell Reason for Referral dysphagia Setting Setting Acute Care Patient Information Identification Type Name,Date of Patient History Per H&P: Very pleasant 85-year-old male who is under the primary care of Dr. russo. Due to failing health patient is seen weekly at the clinic and was last seen on August 31. Patient has been failing to thrive with no appetite and was placed on Megace as well. He was here today with his DPOA and caregiver, Vega Sanders. He states that he progressively worsened over the end of the week and was very short of breath today and that is why he was brought to the ER for evaluation. He was found to be hypoxemic with significant fluid overload and markedly elevated BNP. He was given IV Lasix and placed on oxygen currently at 4 L nasal cannula and is being admitted to the hospital for further treatment and workup. Patient has a complicated medical history as mentioned above. PMH: 1. Coronary artery disease with recent stent placement approximately 2 months ago. He was followed at [facility] 2. Systolic heart failure with last ejection fraction in December when he was last admitted 20-25% ejection fraction 3. AFib with controlled ventricular rate 4. Severe 5. PVD 6. Intolerance to statin Patient seen by ST for clinical swallow evaluation the results of that assessment indicated mod-severe oropharyngeal dysphagia. ST Recommendations recommends clear liquids only, no jell-o with the below safe swallowing strategies in place. ST recommended Modified Barium Swallow study in order to rule out silent aspiration. Subjective Pt was seated in the flouroscopy chair with directions Observations and procedures explained for him. He indicated he understood and agreed to proceed Patient Positioning Position View Lateral Imaging Lateral View Textures Administered Trials Presented Thin Liquid via Spoon (IDDSI 0),Thin Liquid via Cup ( IDDSI 0),Thin Liquid via Straw (IDDSI 0),Extremely Thick Liquid via Spoon (IDDSI 4),Regular (IDDSI 7) Barium Tablet Yes The IDDSI Framework Protocol: IDDSI.1 Oral Impairment Source: The Modified Barium Swallow Impairment Profile (MBSImP??) Lip Closure Escape progressing to mid-chin Tongue Control Posterior escape of greater than half of bolus During Bolus Hold Bolus Preparation/ Disorganized chewing/mashing with solid pieces of bolus Mastication unchewed Bolus Transport/ Repetitive/disorganized tongue motion Lingual Motion Oral Residue Residue collection on oral structures Location Lateral sulci Initiation of Bolus head at pyriforms Pharyngeal Swallow Additional Oral *OME indicated right facial droop with diminished Impairment control of liquids and secretions Observations *DKS moderately slow *Immediate loss of oral contents at right side and across lower lip observed *Oral loss and reduced control of secretions noted across all trials *Pt unable to clear pocketed solid on right side; needed to clear pocketing via finger sweep *Missing molars; Inadequate oral hygiene *Disorganized lingual control/movement with a rocking movement to slowly move the bolus AP. Significantly reduced in AP transition *Mastication observed to be disorganized with unchewed pieces within the bolus. Poor bolus formation and control *Severe oral phase dysphagia NOTE: Suspect pt may have had a CVA given the above observations of oralmotor functioning Pharyngeal Impairment Source: The Modified Barium Swallow Impairment Profile (MBSImP??) Soft Palate No bolus between soft palate & pharyngeal wall Elevation Laryngeal Elevation Part.sup.move.thyroid cart/part.approx.arytenoids to epiglot.petiole Anterior Hyoid No anterior movement Excursion Epiglottic Movement Partial inversion Laryngeal Vestibular Incomplete; narrow column air/contrast in laryngeal Closure vestibule Pharyngeal Stripping Absent Wave Pharyngoesophageal Complete distention & complete duration; no obstruction Segment Opening of flow Tongue Base Wide column of contrast/air betwn tongue base & post. Retraction pharyngeal wall Pharyngeal Residue Collection of residue within/on pharyngeal structures Location Diffuse (>3 areas) Additional *Reduced elevation of the larynx; no movement of the Pharyngeal hyoid Impairment *Partial inversion of the epiglottis Observations *Incomplete closure of the laryngeal vestibule with vimal aspiration observed *Significant delay of swallow initiation with retention of semi-solid and solid trials pooling throughout the pharynx *Aspiration of initial swallow attempt and residual secretions flowing from vallecula into larynx and trachea with (delayed) response or effort, tracheal residue across all trials (PAS 8) *Pt requested water to assist in swallowing solid trial. This helped swallow the solid; however the water was aspirated *Significantly delayed cough triggered from mid sternal area (per pt report). Cough strength weak and nonproductive. Pt unable to clear aspirated contrast Sequential swallows (3 in a row) trial was not attempted as pt reported he does not drink that way, but only by single swallows from a cup or straw Severe pharyngeal phase dysphagia A/P View The IDDSI Framework Protocol: IDDSI.1 A/P View Observations Additional A-P AP view was not attempted Observations In lateral view the barium tablet was observed to stay within the vallecula requiring additional water swallows to clear tablet fto the esophagus Barium tablet cleared to t he stomach Clinical Impressions Dysphagia Type Oral,Pharyngeal Findings PLEASE REVIEW THE ORAL, PHARYNGEAL AN ESOPHAGEAL PHASE REPORTS ABOVE Pt presents with sever oropharyngeal dysphagia characterized by poor oral motor control and function. Pharyngeal phase observations noted, the pt was observed to aspirate liquids as well as secretions across all trials Pt's reflexive cough was not triggered until mid sternum and was weak and non productive. The safest diet (reduced aspiration) was single sips of liquids with small bites of solid/ semisolid foods. Pt is still an aspiration risk; however this was noted to be the safest diet. The results and recommendations of the MBSS were described to the pt and family. MD notified of results and recommendations Rehabilitation Poor Potential Patient Appropriate Yes: Review with pt and the family/caregiver the for Therapy results and recommended diet Recommendations Diet Liquids Order Thin (IDDSI 0) Diet Order Soft & Bite-sized (IDDSI 6) Medication As Tolerated,Whole in Carrier,Crushed in Carrier Recommendation Aspiration Precautions Recommended Upright at 90 Degrees,Frequent Rest Periods,Small Bites Precautions /Sips,Check for Pocketing,Liquids from Cup Treatment Plan Placement Home with Hospice Recommendation After Discharge
[2025-09-06] MEDS: AMIODARONE 200 MG TABLET 50 MG PO (20:07)
[2025-09-06] MEDS: DOCUSATE 100 MG CAPSULE PO (20:08)
--- NOTE | 2025-09-06 22:30 | PC.NURSE ---
Patient struggle with urine continence, Patient is adamant about using urinal but is having difficulty with spills and post void dribbles, contributing to skin irritation on his sacral area. Patient has been educated on importance of k2byxnn or more frequent; and use of condom cath for skin preservation. Patient refuses stating i know it would be better for me but i don't want no condom cath.
[2025-09-07] VITALS (9 sets, daily range): BP systolic 89–98; BP diastolic 56–66; PULSE 54–110; RESP 16–22; TEMP 35.6–36.2; O2SAT 93–140
[2025-09-07] MEDS: FUROSEMIDE 40 MG/4 ML VIAL IV ×2 (00:06→11:38)
[2025-09-07 05:38] LABS: Alanine Aminotransferase 27 IU/L (<50); Albumin 2.8 g/dL (3.5-5.0); Albumin Globulin Ratio 0.9 (1.0-2.8); Alkaline Phosphatase 193 U/L (38-126); Blood Urea Nitrogen 42 mg/dL (9-20); Calcium 7.9 mg/dL (8.4-10.2); Carbon Dioxide 27 mmol/L (22-32); Chloride 100 mmol/L (98-107); Estimated Glomerular Filt Rate > 60 mL/min (>60); Globulin 3.0 g/dL (1.7-4.1); Glucose 118 mg/dL (70-99); HEMOLYSIS < 15 (0-50); Potassium 3.3 mmol/L (3.4-5.1); Sodium 133 mmol/L (137-145); Total Protein 5.8 g/dL (6.3-8.2)
[2025-09-07 05:49] LABS: Add Manual Diff / Slide Review NO; Hematocrit 42.3 % (41-53); Hemoglobin 14.0 g/dL (13.5-17.5); Lymphocytes Absolute Auto 400 /uL (1100-4500); Mean Corpuscular HGB Conc 33.1 % (30-36); Mean Corpuscular Hemoglobin 33.6 PG (26-34); Mean Corpuscular Volume 101.3 fL (80-100); Platelet Count 224 X10^3/uL (150-400)
[2025-09-07] MEDS: APIXABAN 5 MG TABLET 2.5 MG PO ×2 (09:27→20:58)
[2025-09-07] MEDS: CLOPIDOGREL 75 MG TABLET PO (09:28)
[2025-09-07] MEDS: DOCUSATE 100 MG CAPSULE PO ×2 (09:28→20:58)
[2025-09-07] MEDS: SODIUM CHLORIDE 0.9% FLUSH 10 ML IV ×2 (09:34→21:10)
[2025-09-07] MEDS: AMIODARONE 200 MG TABLET 50 MG PO ×2 (10:00→20:58)
--- NOTE | 2025-09-07 10:13 | ST.IPDYTX ---
Visit Care Team Role Provider Type Roseanna Reed PA-C Other Providers Advanced Furniture Delivery Driver Specialty: Medical Wound Care Address: [address] [place] [address], [address] Email: [email or web address] Ness Waggoner DPM Other Providers Non-Staff Specialty: Podiatry Address: [address] [place] [address], [address] Email: Santi Whittington MD Other Providers Physician Specialty: Wound Care Address: [address] [place] [address], [address] Email: [email or web address] Ti Talavera MD Other Providers Non-Staff Specialty: Wound Care Address: [address] [place] [address], [address] Email: [email or web address] Lizett Chance MD Emergency Provider Physician Referring Provider Specialty: Emergency Medicine Address: [address] [place] [address], [address] Fax: Email: [email or web address] Jairo Wang MD Attending Provider Physician Primary Care Provider Specialty: Family Practice Address: [address] [place] [address], [address] Email: [email or web address] Carito Schaefer MD Admit Provider Physician Other Providers Specialty: Family Practice Address: [address] [place] [address], [address] Email: [email or web address] [email or web address] HEAD PUMPER Dysphagia Treatment WELL HEAD PUMPER Dysphagia Treatment Start: 09/06/25 11:24 Freq: Status: Active Protocol: Document 09/07/25 09:48 MA (Rec: 09/07/25 10:13 MA Desktop) Dysphagia Treatment Session Time Visit Start Time 09:25 Visit Stop Time 09:45 Total Visit Minutes 20 Visit Information Visit Number 3 Setting Assessment Location Acute Care Visit Type Note Type Treatment Note Patient Information Identification Type Name,Date of Subjective Pt sitting upright in chair in room with breakfast tray Observations . Pt friend present. Pt awake, alert and compliant with speech therapy session. Treatment Liquids Trialed Thin (IDDSI 0) Solids Trialed Minced & Moist (IDDSI 5),Soft & Bite-sized (IDDSI 6) Administration Type Tea Spoon,Controlled Cup Sip,Self-Feeding Oral Strategies Upright at 90 degrees Treatment Activities Education and review of MBS completed yesterday. Assessment of diet tolerance with soft and bite sized solids and thin liquids with use of safe swallowing strategies, such as small single sips. Education related to safe swallowing strategies. The IDDSI Framework Protocol: IDDSI.1 Assessment Patient Response to Excellent Treatment Rehab Potential Poor Assessment of ST reviewed MBS results with Pt. Please see report for Improvement more details. ST educated Pt on aspiration precautions, such as brushing teeth before/after meals, taking small sips of liquids, sitting upright 90 degrees when eating/drinking. Pt verbalized understanding. During session, Pt consumed 1 bite of scrambled eggs, 1 bite of oatmeal and about 2 oz of thin coffee via cup. Pt also with sippy cups on tray, which may help Pt control amount of liquid he consumes at a time. For scrambled eggs, Pt exhibited prolonged mastication, disorganized mastication and bolus formation, oral stasis, occasional anterior spillage, especially left side. For oatmeal, Pt exhibited good oral acceptance and containment, prolonged bolus formation and control, extended ap transport. For thin coffee via small cup sips Pt exhibited good oral acceptance and containment, no overt s/s of aspiration such as coughing or choking . Pt to be discharged from at this time d/t Pt on safest and most efficient least restrictive diet with safe swallowing strategies in place. Recommendations Recommendations Continue Current Diet Liquids Order Thin (IDDSI 0) Diet Order Soft & Bite-sized (IDDSI 6) Medication As Tolerated,Whole in Carrier,Crushed in Carrier Recommendations Aspiration Precautions Recommended Upright at 90 Degrees,Alternate Liquids/Solids,Small Precautions Bites/Sips Treatment Plan Placement Home with Hospice Recommendation after Discharge Appropriate for No Continued Therapy
--- NOTE | 2025-09-07 10:56 | DIET.CONS ---
Dietary Consultation Note Admission Date: 09/04/2025 15:54 Assessment: f/u Met with pt at bedside who reports appetite has returned, ate most of breakfast today. Reports eating around 25% of his meals for the past couple weeks before admission. Unsure of his weight hx. Does do 1 cho Ensure daily normally. Is open and understanding of needing to start up Ensure again along with eating full meals. Unknown stage of sacral pressure ulcer. NFPE with severe muscle wasting in temples, deltoid and moderate subcutaneous fat wasting in buccal and orbital fat pads. Ht: 170.18 cm Wt: 68.5 kg BMI: 23.5 UBW: 75 kg in Dec 2024 Last BM: 09/06/25 (09/06/25 11:42) MNA: 8 Moe Score: 15 Diet: 09/07/25 Breakfast Dysphagia Diet Diet Modifications: Food Texture: Level 6-Soft & Bite-sized Liquid Consistency: Level 0 - Thin Nutrition Percent Meal Consumed 50% 09/06/25 18:10 Percent Meal Consumed 50% 09/06/25 11:42 Percent Meal Consumed 50% 09/05/25 18:00 Labs: RBC 4.18 X10^6/uL (4.5-5.9) L 09/07/25 04:57 Hgb 14.0 g/dL (13.5-17.5) 09/07/25 04:57 Hct 42.3 % (41-53) 09/07/25 04:57 Creatinine 1.12 mg/dL (0.66-1.25) 09/07/25 04:57 Lactate 2.2 mmol/L (0.7-2.1) H 09/04/25 14:58 NT-Pro-B Natriuret Pep 50893 pg/mL (<450) H 09/05/25 06:43 Nutrition Diagnosis: Severe acute protein calorie malnutrition r/t difficulty caring for self as evidenced by <25% of estimated energy needs in last month (severe), severe muscle mass loss (temples, deltoid) and moderate to severe subcutaneous fat loss (buccal and orbital fat pads), failure to thrive, unable to prepare self food Interventions: ONS+ BID Discussed importance of eating enough protein for healing of sacral pressure ulcer and reviewed sources EER: 1700 kcals (25 kcals/kg per BMI) 80 g protein (wounds, PCM, 1.2 g/kg) Monitoring/Evaluations: PO intakes, ONS intake Electronically Signed by: Jacqueline Shaw 09/07/25 10:[address] [address]
[2025-09-07] MEDS: POTASSIUM CHLORIDE 20 MEQ TAB 40 MEQ PO (11:38)
--- NOTE | 2025-09-07 12:12 | CM.DPNOTE ---
DCP Continued: Reviewed EMR and team rounds for pt?s medical status. Per Provider, pt not quite medically cleared for discharge today although slightly improving. Provider reports pt is now on only 1L O2; would still need to work with therapies especially Speech Therapy for concerns of aspiration. Provider is hopeful for a Friday, 09/09 discharge to SNF vs. if pt improves and still would prefer to discharge home, would pivot to a hospice plan. Pt was presented with that today with Provider and pt would like to move forward with SNF Rehab plan. Per [facility] Admissions, pt clinically accepted for SNF Rehab and holding a spot for a tentative transfer on Friday, 09/09 if medically cleared. Transport time pending. Plan: Anticipating discharge to [facility] Rehab on Fri, 09/09 or when medically cleared; with facility wheelchair van. CM Team will continue to follow for coordination of discharge plans. LUIZ Main
[2025-09-07] MEDS: METOPROLOL ER 50 MG TABLET 25 MG PO (13:10)
--- NOTE | 2025-09-07 14:02 | OT.IP.TRT ---
Current Diagnoses Acute on chronic systolic (congestive) heart failure (09/04/25) Occupational Therapy Treatment Note M2 OT-IP Current Condition Start: 09/05/25 10:59 Freq: Status: Active Protocol: Document 09/05/25 14:36 [facility] (Rec: 09/05/25 15:02 [facility] Desktop) Occupational Therapy Current Condition Current Condition Evaluation Date 09/05/25 Treatment Diagnosis CHF, decreased self care Diagnosis Onset Date 09/04/25 M3 OT- IP Subjective and Pain Start: 09/05/25 10:59 Freq: Status: Active Protocol: Document 09/07/25 14:31 [facility] (Rec: 09/07/25 14:39 [facility] Desktop) OT- Subjective Occupational Therapy Visit Type Type Treatment Note Visit Start Time 13:42 Visit Stop Time 14:02 Occupational Therapy Visit Comments Patient Comments Pt requesting to get back to bed. Patient/Caregiver Per pt states going to skilled rehab. Goals OT Pain Assessment Pain When Pain Assessed During Mobility Pain Present Pain Present Pain Reported Location Back Pain Behaviors Facial Grimacing,Holding Area M4 OT- IP ADL's Start: 09/05/25 10:59 Freq: Status: Active Protocol: Document 09/05/25 14:36 ELYSE (Rec: 09/05/25 15:02 [facility] Desktop) OT FIW-Nyxt-Ocufdrn Comments OT Self-Feeding not observed Comments OT ADL-Grooming General Evaluation Grooming Ability Standby Assistance Comments OT Grooming Comments EOB on setup of supplies pt is able to comb hair OT ADL-Oral Care General Eval Oral Care Ability Minimal Assistance Comments Oral Care Comments Performed EOB. Pt has difficulty aiming for spit pail and needs to have clothes changed. OT ADL-Dressing General Eval Upper Body Dressing Maximum Assistance Ability Lower Body Dressing Minimal Assistance Ability Comments OT Dressing Comments Pt requires MAX A to change hospital gown. Pt able to change his socks with min A using figure 4 position EOB . OT ADL-Toileting Comments OT Toileting not observed, pt declines Comments OT ADL-Bathing Comments OT Bathing Comments pt declines, sponge bath may be best at this time M5 OT- IP IADL's Start: 09/05/25 10:59 Freq: Status: Active Protocol: Document 09/05/25 14:36 [facility] (Rec: 09/05/25 15:02 [facility]) OT-Instrumental Activities of Daily Living Deficits IADL Deficits Deficits Identified Home Safety Awareness Awareness of Need Decreased Awareness for Assistance at Home Home Safety Comments Pt is insistent on dc home. Pts DPOA expresses concern for his safety on return home. OT educates pt on benefit of working with therapy to get stronger at SNF prior to dc. Pt reports that he hasn't been eating and has been having a difficult time caring for himself, despite this, pt does not see need for assist at home ( beyond assist with bathing). Pt demonstrates decreased safety awareness with respect to safety of dc home. Medication Management Medication Caregiver Provides Supervision Management Money Management Money Management Caregiver Provides Supervision Meal Preparation Meal Preparation Per pt and DPOA pt has not been eating for an extended Comments period of time. Security Solutions Engineer Security Solutions Engineer Pt reports he hasn't had assist but needs to hire Comments someone Driving Driving Caregiver Provides Assist M6 OT- IP Functional Cognition Start: 09/05/25 10:59 Freq: Status: Active Protocol: Document 09/07/25 14:31 [facility] (Rec: 09/07/25 14:39 [facility] Desktop) Cognitive Factors Limiting Selfcare Function Cognitive Comments Cognitive Assessment Pt able to follow commands for ADL and mobility needs. Comments M7 OT- IP Mobility and Balance Start: 09/05/25 10:59 Freq: Status: Active Protocol: Document 09/07/25 14:31 [facility] (Rec: 09/07/25 14:39 [facility] Desktop) OT-Transfer Assessment Sit to and From Stand Sit to and from Moderate Assistance,1 Person Assistance Stand Transfers Transfer Ability Moderate Assistance,1 Person Assistance Technique Transfer Destination Bed,Chair Devices Transfer Assistive Gait Belt,Front Wheeled Walker Devices Comments Mobility Comments MODA to come to stand and transfer back to bed. Pt assist to help position in bed and pillow underneath as noted redness on his spine. Pt on O2 and reading varies form 82-98% and HR 42-56, nursing notified and aware. OT- Gait Assessment Assistive Devices Assistive Device Gait Belt,Front Wheeled Walker OT- Balance Assessment Sitting Balance and Reactions Static Sitting Good Balance Ability Dynamic Sitting Fair Balance Ability Standing Balance and Reactions Static Standing Fair Balance Ability Dynamic Standing Poor Balance Ability M8 OT- IP Objective Assessments Start: 09/05/25 10:59 Freq: Status: Active Protocol: Document 09/05/25 14:36 [facility] (Rec: 09/05/25 15:02 [facility] Desktop) OT Gross Range of Motion Upper Extremity Range of Motion Assessment Within Functional Limits OT Strength Upper Extremity Strength Assessment Bilaterally Impaired Hand Novelty Twister Tender Strength Hand Dominance Right Comments Strength Comments B UE strength 4- grossly OT-Muscle Tone Assessment Muscle Tone WNL Yes OT Sensation Assessment Edema Edema Absent M9 OT- IP Assessment and Plan Start: 09/05/25 10:59 Freq: Status: Active Protocol: Document 09/07/25 14:31 [facility] (Rec: 09/07/25 14:39 [facility] Desktop) OT Summary Assessment and Plan Potential Rehabilitation Fair Potential Analytic Complexity Moderate at Evaluation Summary OT Impairments Pain,Strength,Balance,Functional Cognition,Functional Mobility,Grooming,Dressing,Toileting,Bathing,Toilet Transfers,Shower Transfers,Activity Tolerance Progress Towards Slow Progress due to Pain,Slow Progress due to Medical Goals Issues,Slow Progress due to Activity Tolerance Assessment Summary Pt decreased activity tolerance and needing MODA for bed mobility and transfer needs at this time. Pt will benefit from SNF versus 24/7 assist and home health. Goals Self-Feeding Goal Independent Grooming Goal Independent Dressing Goal Minimal Assistance Toileting Goal Minimal Assistance Bathing Goal Minimal Assistance Toilet Transfer Goal Standby Assistance Shower Transfer Goal Contact Guard Assistance Days to Meet Goals 10 Frequency of Treatment Other frequency 5x/wk Treatment Plan OT Treatment Plan ADL Training,Functional Mobility,Therapeutic Exercises, Patient/Family Education,Discharge Planning Other Treatment Standing ADL's at the sink. Recommendations and Next Treatment Focus Discharge Recommendations OT Discharge Home with 24/7 Assist Available,Home Health,SNF Rehab Recommendations Other Discharge Pt would benefit most from SNF. Recommendations Transportation Needs Private Vehicle,Wheelchair/Cabulance at Discharge
[2025-09-07] MEDS: ALBUTEROL 2.5 MG/3 ML NEB (ADULT) INH ×2 (14:14→21:01)
--- NOTE | 2025-09-07 14:18 | P.PN_ITS ---
Subjective Subjective Date Patient Seen: 09/07/25 Time Patient Seen: 14:18 Interval history: CC: weakness/dyspnea Feeling a bit better today but still extremely weak and only ate half of breakfast. Worked with PT/OT/ST, recommendations noted, particularly ST's concern for dysphagia. On a liter or two of O2 via NC but does not desat without it. continuing diuresis as tolerated. Discussed options today with pt I do think he will not be in shape to go home unless with hospice for a while yet. He is now open to getting help at home which he had been resisting. Exam Vital Signs (past 8 hours): - 09/07/25 08:27 09/07/25 11:50 09/07/25 12:34 Temperature 96.9 F L 96.5 F L Pulse Rate 100 H 92 H 54 L Respiratory Rate 16 20 22 Blood Pressure 92/60 89/56 L Pulse Oximetry 100 94 93 Oxygen Delivery Method Room Air Oxygen Flow Rate 3 0 3 Fraction of Inspired Oxygen 28 SaO2/FiO2 Ratio 335 Oxygen Delivery Method Room Air Oxygen Flow Rate 3 Narrative Exam Narrative: sitting up in chair with well wisher at bedside Const Other: well developed poorly nourished cachectic HENMT Other: slurred speech with some drooling evident Cardio Other: regular rate, s1/s2 pedal edema up to midcalves bilaterally GI Other: soft nontender active bowel sounds Skin Other: sacral ulcer/rash Neuro Other: alert awake oriented conversant Objective Labs 09/07/25 04:57 09/07/25 04:57 Labs: Laboratory Results - last 24 hr 09/07/25 04:57 WBC 10.0 RBC 4.18 L Hgb 14.0 Hct 42.3 MCV 101.3 H MCH 33.6 MCHC 33.1 RDW 16.8 H Plt Count 224 Neut % (Auto) 89.5 H Lymph % (Auto) 4.0 L [place]rie % (Auto) 6.1 Eos % (Auto) 0.0 L Baso % (Auto) 0.4 Neut # (Auto) 8900 H Lymph # (Auto) 400 L [place] # (Auto) 600 Eos # (Auto) 0 Baso # (Auto) 0 Sodium 133 L Potassium 3.3 L Chloride 100 Carbon Dioxide 27 BUN 42 H Creatinine 1.12 Estimated GFR > 60 BUN/Creatinine Ratio 37.5 H Glucose 118 H Calcium 7.9 L Total Bilirubin 0.6 AST 41 ALT 27 Alkaline Phosphatase 193 H Total Protein 5.8 L Albumin 2.8 L Globulin 3.0 Albumin/Globulin Ratio 0.9 L [facility] Medical History (Updated 09/07/25 @ 15:52 by Santi Whittington MD) Hypertension Social History household members: none Smoking Status: Never smoker alcohol intake: current Assessment & Plan Assessment & Plan narrative: #Acute respiratory failure secondary to #acute on chronic systolic and diastolic heart failure due in part to #severe aortic stenosis resulting in #elevated troponins and BNP Slow improvement with diuresis, EF is 15% per echo with severe aortic stenosis not amenable to repair. Troponins and BNP elevated on admission due to strain. We will continue diuresis and follow. Clinically somewhat improved today. #AFib with AVR. Resolved. Certainly at risk for repeat. Continue Coreg outpatient Eliquis, with amio and metoprolol #Sacral pressure ulcer possible Judy will continue wound care consult patient is generally not able to care for himself at this point, will need continued follow-up keep area offloaded #failure to thrive #severe protein malnutrition #dysphagia very concerning per speech therapy for aspiration he says he is doing better today able to eat some eggs if he concentrates - primary issue is underfeeding leading to gross deconditioning - monitor for aspiration #Neutrophilia improved monitor - urine looked ok Dispo: Admit inpatient, likely to penitentiary/rehab by weekend. May ultimately need placement. Code: Full DVT: Mert PCP: Felipe Time-Based Coding :: [TOTAL MINUTES] spent with patient and on the chart (including review of chart, obtaining history, exam, reviewing outside data, placing orders, documenting exam and treatment plan, and counseling patient) on [DATE].
[2025-09-07] MEDS: FLUTICASONE 120 SPRAY/16 GM SPRAY.SUSP NASAL (15:17)
--- NOTE | 2025-09-07 15:48 | PM.CN ---
History of Present Illness Consult details Date Patient Seen: 09/07/25 Time Patient Seen: 15:30 Chief complaint: on new medication feels weak sob cant sleep Narrative: Patient is an 85-year-old male with chronic systolic heart failure, CAD, atrial fibrillation, failure to thrive, and aortic stenosis who was recently admitted to the hospital with severe congestive failure. He was noted to have pressure ulcers on the buttocks and a wound care consultation was obtained for further evaluation and treatment. The patient thinks that the ulcers have been present for about 3 weeks. He reports that the ulcers are slightly tender. He has not noted any drainage. The patient does not have any prior history of having pressure ulcers in the past. He has limited ambulation and only ambulates with the assistance. He recently has had a significantly decreased appetite but his appetite has improved since admission to the hospital. Meds Home Medications and Allergies Home Medications ?Medication ?Instructions ?Recorded ?Confirmed ?Type albuterol sulfate 90 mcg/actuation 1 - 2 puff inhalation Q4H PRN 12/16/24 09/04/25 History aerosol inhaler wheezing amiodarone 100 mg tablet 50 mg PO BID 12/16/24 09/04/25 History enalapril maleate 20 mg tablet 20 mg PO DAILY 12/16/24 09/05/25 History Held on 09/05/25. Instructions: Provider's Order metoprolol succinate 25 mg 50 mg (2 x 25 mg) PO DAILY #30 tabs 12/18/24 09/05/25 Rx tablet,extended release 24 hr Held on 09/05/25. Instructions: Provider's Order spironolactone 25 mg tablet 25 mg PO DAILY #30 tabs 12/18/24 09/04/25 Rx apixaban 2.5 mg tablet (Eliquis) 2.5 mg PO BID 09/04/25 09/04/25 History clopidogrel 75 mg tablet 75 mg PO DAILY 09/04/25 09/04/25 History furosemide 20 mg tablet 20 mg PO DAILY 09/04/25 09/04/25 History megestrol 20 mg tablet 20 mg PO DAILY 09/04/25 09/05/25 History metoprolol succinate 50 mg 50 mg PO DAILY 09/04/25 09/05/25 History tablet,extended release 24 hr Held on 09/05/25. Instructions: Provider's Order Allergies Allergy/AdvReac Type Severity Reaction Status Date / Time No Known Drug Allergies Allergy Verified 09/04/25 12:49 Review of Systems Constitutional Comments: Generalized weakness, decreased appetite Respiratory Comments: Shortness of breath Exam Vital Signs (past 8 hours): - 09/07/25 08:27 09/07/25 11:50 09/07/25 12:34 Temperature 96.9 F L 96.5 F L Pulse Rate 100 H 92 H 54 L Respiratory Rate 16 20 22 Blood Pressure 92/60 89/56 L Pulse Oximetry 100 94 93 Oxygen Delivery Method Room Air Oxygen Flow Rate 3 0 3 09/07/25 14:39 Temperature Pulse Rate 90 Respiratory Rate 18 Blood Pressure Pulse Oximetry 140 H Oxygen Delivery Method Nasal Cannula Oxygen Flow Rate 2 Fraction of Inspired Oxygen 28 SaO2/FiO2 Ratio 335 Oxygen Delivery Method Nasal Cannula Oxygen Flow Rate 2 Narrative Exam Narrative: Thin male who is alert and oriented, no apparent distress Skin Other: Stage II pressure ulcers on both buttocks, no sign of active infection. Objective Labs 09/07/25 04:57 09/07/25 04:57 Labs: Laboratory Results - last 24 hr 09/07/25 04:57 WBC 10.0 RBC 4.18 L Hgb 14.0 Hct 42.3 MCV 101.3 H MCH 33.6 MCHC 33.1 RDW 16.8 H Plt Count 224 Neut % (Auto) 89.5 H Lymph % (Auto) 4.0 L [place] % (Auto) 6.1 Eos % (Auto) 0.0 L Baso % (Auto) 0.4 Neut # (Auto) 8900 H Lymph # (Auto) 400 L [place] # (Auto) 600 Eos # (Auto) 0 Baso # (Auto) 0 Sodium 133 L Potassium 3.3 L Chloride 100 Carbon Dioxide 27 BUN 42 H Creatinine 1.12 Estimated GFR > 60 BUN/Creatinine Ratio 37.5 H Glucose 118 H Calcium 7.9 L Total Bilirubin 0.6 AST 41 ALT 27 Alkaline Phosphatase 193 H Total Protein 5.8 L Albumin 2.8 L Globulin 3.0 Albumin/Globulin Ratio 0.9 L [facility] Medical History (Updated 09/07/25 @ 15:52 by Santi Whittington MD) Hypertension Social History household members: none Tobacco & Substance Use Smoking Status: Never smoker alcohol intake: current Assessment & Plan Assessment and plan (1) Pressure ulcer of left buttock, stage 2: Status: Acute (2) Pressure ulcer of right buttock, stage 2: Status: Acute Assessment & Plan narrative: The patient has stage II pressure ulcers involving both buttocks with no sign of active infection. Recommend daily dressing changes with the Allevyn, pressure offloading, protein supplementation, follow up at wound center after discharge. Time-Based Coding :: [45 MINUTES] spent with patient and on the chart (including review of chart, obtaining history, exam, reviewing outside data, placing orders, documenting exam and treatment plan, and counseling patient) on [09/07/25].
--- NOTE | 2025-09-07 16:17 | PT-IP ANOTE ---
checked on pt x 2 and pt refused PT.
[2025-09-08] VITALS (8 sets, daily range): BP systolic 85–98; BP diastolic 62–70; PULSE 59–99; RESP 16–22; TEMP 35.3–36.2; O2SAT 94–99
[2025-09-08] MEDS: FUROSEMIDE 40 MG/4 ML VIAL IV ×2 (01:04→12:37)
[2025-09-08] MEDS: ALBUTEROL 2.5 MG/3 ML NEB (ADULT) INH ×5 (03:45→21:19)
[2025-09-08 06:04] LABS: Blood Urea Nitrogen 43 mg/dL (9-20); Calcium 7.9 mg/dL (8.4-10.2); Carbon Dioxide 29 mmol/L (22-32); Chloride 98 mmol/L (98-107); Estimated Glomerular Filt Rate > 60 mL/min (>60); Glucose 117 mg/dL (70-99); HEMOLYSIS < 15 (0-50); Potassium 3.4 mmol/L (3.4-5.1); Sodium 134 mmol/L (137-145)
--- NOTE | 2025-09-08 09:40 | PT-IP ANOTE ---
Ryan, a pleasant gentleman up in bed finishing breakfast at arrival, PORTABLE CANTEEN OPERATOR attempted see pt for treatment at 0940, stated to tired but can come back this afternoon.
[2025-09-08] MEDS: FLUTICASONE 120 SPRAY/16 GM SPRAY.SUSP NASAL (09:56)
[2025-09-08] MEDS: APIXABAN 5 MG TABLET 2.5 MG PO ×2 (09:56→21:05)
[2025-09-08] MEDS: CLOPIDOGREL 75 MG TABLET PO (09:56)
[2025-09-08] MEDS: AMIODARONE 200 MG TABLET 50 MG PO ×2 (09:57→21:05)
[2025-09-08] MEDS: DOCUSATE 100 MG CAPSULE PO ×2 (09:57→21:05)
[2025-09-08] MEDS: SODIUM CHLORIDE 0.9% FLUSH 10 ML IV ×2 (09:58→21:06)
--- NOTE | 2025-09-08 10:48 | OT.IPNOTE ---
Pt deciding on hospice and therefore discharge OT orders.
[2025-09-08] MEDS: POTASSIUM CHLORIDE 20 MEQ TAB 40 MEQ PO (12:37)
--- NOTE | 2025-09-08 13:25 | CM.DPC ---
Addendum entered by RAFAEL Allred 09/08/25 16:02: ADD: Per Daria at [facility], she spoke to pt via phone and he states he does not need Hospice or any DME and declines Hospice at this time. NISSA met bedside with pt and KRAIG Kwong and discussed option of home with Hospice and 02/06 hired [facility] vs SNF. Pt states his goal is to get stronger and go home and therefore preference is [facility] at d/c tomorrow Friday. KRAIG Kwong in agreement and encouraging pt. Left msg for MD and updated [facility] and [facility]. BF Addendum entered by RAFAEL Allred 09/08/25 14:25: ADD: Return call from Daria at [facility] and updated on pt situation and status and she will call pt now since he is decisional but also has POA info as well. Faxed POA copy to [facility] to review. Hospice potentially has openings for tomorrow 09/09 and will keep SW updated. Pt currently on 3LO2. Updated MD. BF Original Note: DCP Hospice Planning: Per MD, pt declined PT twice but worked with OT and recommendation was SNF vs Hospice pending progress and MD discussed Goals of Care bedside with pt and preference is home with Hospice and has finances to hire private caregivers. MD requests referral to Hospice and feels Hospice needs to be in place before pt can discharge. MD will call pt's KRAIG Kwong and update on this decision as well. NISSA faxed referral to [facility] and called intake and left msg requesting prioritizing Hospice Info Visit with pt and POA to get pt on the schedule for discharge gian. Called [facility] back and left second msg. RAFAEL Allred
--- NOTE | 2025-09-08 14:17 | PT-IP ANOTE ---
Pt going on hospice; will d/c PT at this time.
--- NOTE | 2025-09-08 14:44 | DIET.PN1 ---
Dietary Progress Note Assessment: Pt going home on hospice. D/c nutrition consult. Ht: 170.18 cm Wt: 67.7 kg BMI: 23.5 UBW: Last BM: 09/06/25 (09/06/25 11:42) MNA: 8 Moe Score: 15 Diet: 09/07/25 Breakfast Dysphagia Diet Diet Modifications: Food Texture: Level 6-Soft & Bite-sized Liquid Consistency: Level 0 - Thin Nutrition Percent Meal Consumed 25% 09/07/25 18:00 Percent Meal Consumed 50% 09/06/25 18:10 Labs: RBC 4.18 X10^6/uL (4.5-5.9) L 09/07/25 04:57 Hgb 14.0 g/dL (13.5-17.5) 09/07/25 04:57 Hct 42.3 % (41-53) 09/07/25 04:57 Creatinine 1.11 mg/dL (0.66-1.25) 09/08/25 04:52 Lactate 2.2 mmol/L (0.7-2.1) H 09/04/25 14:58 NT-Pro-B Natriuret Pep 65200 pg/mL (<450) H 09/05/25 06:43 Electronically Signed by: Jacqueline Shaw 09/08/25 14:44 Clinical Dietitian [address] [address]
--- NOTE | 2025-09-08 16:43 | P.PN_ITS ---
Subjective Subjective Date Patient Seen: 09/08/25 Time Patient Seen: 10:00 Interval history: Pt is feeling a bit better still weak refused PT having trouble eating ongoing dysphagia. Discussed options initially interested in home with hospice but refuwsed when he talked with them now desiring [facility] in light of extreme dysphagia may need PEG tube. Exam Vital Signs (past 8 hours): - 09/08/25 09:42 09/08/25 10:00 09/08/25 12:00 Temperature 95.6 F L Pulse Rate 59 L 94 H Respiratory Rate 22 Blood Pressure 95/66 85/64 L Pulse Oximetry 94 94 Oxygen Delivery Method Nasal Cannula Oxygen Flow Rate 3 3 09/08/25 16:03 Temperature 96.4 F L Pulse Rate 91 H Respiratory Rate 18 Blood Pressure 89/62 L Pulse Oximetry 99 Oxygen Delivery Method Oxygen Flow Rate 3 Fraction of Inspired Oxygen 28 SaO2/FiO2 Ratio 335 Oxygen Delivery Method Nasal Cannula Oxygen Flow Rate 3 Narrative Exam Narrative: sitting in bed looking at breakfast Resp Other: clear to auscultation bilaterally Cardio Other: regular rate occasional skipped beats minimal pedal edema now GI Other: soft nontender active bowel sound Neuro Other: AAOx3, moving all limbs, very weak and cachectic, slurred speech with drooling Objective Labs 09/07/25 04:57 09/08/25 04:52 Labs: Laboratory Results - last 24 hr 09/08/25 04:52 Sodium 134 L Potassium 3.4 Chloride 98 Carbon Dioxide 29 BUN 43 H Creatinine 1.11 Estimated GFR > 60 BUN/Creatinine Ratio 38.7 H Glucose 117 H Calcium 7.9 L PFSH Medical History (Updated 09/07/25 @ 15:52 by Santi Whittington MD) Hypertension Social History household members: none Smoking Status: Never smoker alcohol intake: current Assessment & Plan Assessment & Plan narrative: #Acute respiratory failure secondary to #acute on chronic systolic and diastolic heart failure due in part to #severe aortic stenosis resulting in #elevated troponins and BNP Slow improvement with diuresis, EF is 15% per echo with severe aortic stenosis not amenable to repair. Troponins and BNP elevated on admission due to strain. We will continue diuresis and follow. Clinically somewhat improved today I think he is adequately diuresed. #AFib with AVR Resolved. Certainly at risk for repeat. Continue Coreg outpatient Eliquis, with amio and metoprolol #Sacral pressure ulcer possible Judy will continue wound care consult patient is generally not able to care for himself at this point, will need continued follow-up keep area offloaded #failure to thrive #severe protein malnutrition #dysphagia very concerning per speech therapy for aspiration he says he is doing better still very concerning may need PEG if not going to hospice - primary issue is underfeeding leading to gross deconditioning - monitor for aspiration #Neutrophilia improved monitor - urine looked ok Dispo: Admit inpatient, likely to group home/rehab by weekend. May ultimately need placement. Code: Full DVT: Mert PCP: Felipe Time-Based Coding :: [TOTAL MINUTES] spent with patient and on the chart (including review of chart, obtaining history, exam, reviewing outside data, placing orders, documenting exam and treatment plan, and counseling patient) on [DATE].
[2025-09-09] VITALS: BP 110/60; PULSE 92; RESP 18; TEMP 36.2; O2SAT 97
[2025-09-09 00:14] VITALS: O2SAT 97
[2025-09-09] MEDS: FUROSEMIDE 40 MG/4 ML VIAL IV ×2 (00:17→11:53)
--- NOTE | 2025-09-09 06:43 | PC.NURSE ---
music teacher Patient was very tired and refused VS at 0400 stating am too tired, its too early for that, RN educated patient on importance of VS, Patient verbalized understanding but still refused. RN attempted again when checking again at 0500 patient still refused and again at 0600. child nutrition manager aware. patient still being monitored on cardiac telemetry with BBB sinus tach, and on NC 3 liters humidified 02% 93,
[2025-09-09 06:51] LABS: Add Manual Diff / Slide Review NO; Hematocrit 44.1 % (41-53); Hemoglobin 14.5 g/dL (13.5-17.5); Lymphocytes Absolute Auto 400 /uL (1100-4500); Mean Corpuscular HGB Conc 32.9 % (30-36); Mean Corpuscular Hemoglobin 33.3 PG (26-34); Mean Corpuscular Volume 101.0 fL (80-100); Platelet Count 206 X10^3/uL (150-400)
[2025-09-09 07:05] LABS: Alanine Aminotransferase 34 IU/L (<50); Albumin 3.0 g/dL (3.5-5.0); Albumin Globulin Ratio 1.0 (1.0-2.8); Alkaline Phosphatase 222 U/L (38-126); Blood Urea Nitrogen 45 mg/dL (9-20); Calcium 8.2 mg/dL (8.4-10.2); Carbon Dioxide 28 mmol/L (22-32); Chloride 100 mmol/L (98-107); Estimated Glomerular Filt Rate > 60 mL/min (>60); Globulin 3.1 g/dL (1.7-4.1); Glucose 129 mg/dL (70-99); HEMOLYSIS 44 (0-50); Potassium 4.3 mmol/L (3.4-5.1); Sodium 133 mmol/L (137-145); Total Protein 6.1 g/dL (6.3-8.2)
[2025-09-09 08:00] VITALS: BP 113/78; PULSE 62; RESP 20; TEMP 36.1; O2SAT 90
[2025-09-09] MEDS: AMIODARONE 200 MG TABLET 50 MG PO (09:50)
[2025-09-09] MEDS: APIXABAN 5 MG TABLET 2.5 MG PO (09:50)
[2025-09-09] MEDS: CLOPIDOGREL 75 MG TABLET PO (09:50)
[2025-09-09] MEDS: DOCUSATE 100 MG CAPSULE PO (09:50)
[2025-09-09] MEDS: FLUTICASONE 120 SPRAY/16 GM SPRAY.SUSP NASAL (09:51)
[2025-09-09] MEDS: SODIUM CHLORIDE 0.9% FLUSH 10 ML IV (09:51)
--- NOTE | 2025-09-09 09:58 | P.PN_ITS ---
Exam Vital Signs (past 8 hours): - 09/09/25 08:00 Temperature 97.0 F L Pulse Rate 62 Respiratory Rate 20 Blood Pressure 113/78 Pulse Oximetry 90 L Oxygen Flow Rate 2 Fraction of Inspired Oxygen 32 SaO2/FiO2 Ratio 303 Oxygen Delivery Method Nasal Cannula Oxygen Flow Rate 2 Objective Labs 09/09/25 06:22 09/09/25 06:22 Labs: Laboratory Results - last 24 hr 09/09/25 06:22 WBC 8.9 RBC 4.37 L Hgb 14.5 Hct 44.1 MCV 101.0 H MCH 33.3 MCHC 32.9 RDW 16.7 H Plt Count 206 Neut % (Auto) 88.4 H Lymph % (Auto) 4.8 L [place] % (Auto) 6.2 Eos % (Auto) 0.0 L Baso % (Auto) 0.6 Neut # (Auto) 7900 H Lymph # (Auto) 400 L [place] # (Auto) 600 Eos # (Auto) 0 Baso # (Auto) 100 Sodium 133 L Potassium 4.3 Chloride 100 Carbon Dioxide 28 BUN 45 H Creatinine 1.03 Estimated GFR > 60 BUN/Creatinine Ratio 43.7 H Glucose 129 H Calcium 8.2 L Total Bilirubin 0.8 AST 55 ALT 34 Alkaline Phosphatase 222 H Total Protein 6.1 L Albumin 3.0 L Globulin 3.1 Albumin/Globulin Ratio 1.0 [facility] Medical History (Updated 09/07/25 @ 15:52 by Santi Whittington MD) Hypertension Social History household members: none Smoking Status: Never smoker alcohol intake: current Assessment & Plan Assessment & Plan narrative: #Acute respiratory failure secondary to #acute on chronic systolic and diastolic heart failure due in part to #severe aortic stenosis resulting in #elevated troponins and BNP Slow improvement with diuresis, EF is 15% per echo with severe aortic stenosis not amenable to repair. Troponins and BNP elevated on admission due to strain. We will continue diuresis and follow. Clinically somewhat improved today I think he is adequately diuresed. #AFib with AVR Resolved. Certainly at risk for repeat. Continue Coreg outpatient Eliquis, with amio and metoprolol #Sacral pressure ulcer possible Judy will continue wound care consult patient is generally not able to care for himself at this point, will need continued follow-up keep area offloaded #failure to thrive #severe protein malnutrition #dysphagia very concerning per speech therapy for aspiration he says he is doing better still very concerning may need PEG if not going to hospice - primary issue is underfeeding leading to gross deconditioning - monitor for aspiration #Neutrophilia improved monitor - urine looked ok Dispo: Admit inpatient, likely to fpc/rehab by weekend. May ultimately need placement. Code: Full DVT: Mert PCP: Felipe Time-Based Coding :: [TOTAL MINUTES] spent with patient and on the chart (including review of chart, obtaining history, exam, reviewing outside data, placing orders, documenting exam and treatment plan, and counseling patient) on [DATE].
[2025-09-09] MEDS: ALBUTEROL 2.5 MG/3 ML NEB (ADULT) INH (10:00)
--- NOTE | 2025-09-09 10:59 | CM.DPC ---
Addendum entered by RAFAEL Allred 09/09/25 14:53: ADD: Call from POA bedside stating pt now agreeable to SNF. NISSA called [facility] and confirmed they can still accept this afternoon. NISSA called Dr. Wang and confirmed he will return and do discharge to SNF. Secured emailed PAS[facility], signed med list, script and dc summary to [facility] to review. Updated web content executive, DIRECTOR POST, and RN and provided number to call report. BF Original Note: DCP SNF vs Home Cont: MD arrived bedside for d/c to SNF and pt now hesitant to discharge and has ongoing swallow issues that MD thinks pt could benefit from further ST today before discharge. NISSA met with MD, pt, and KRAIG Kwong and pt aware he is close to discharge and still continues to express that he wants to strengthen but wants home and does not seem to have the awareness of his current care needs. MD and KRAIG ideally would recommend SNF at d/c to [facility] but if pt insistent on home then POGoldie agreeble to assist with getting private pay caregivers in place for home. POGoldie requests SW assist with determining caregiver agency available to assist in the home. NISSA called Shweta at [facility] [phone] and discussed pt's asssit needs, wound care recommendations, and referral already sent to [facility] but pt currently declines hospice services. Shweta states she has a caregiver that likely would be a good fit but not able to start until Mon AM (today is Friday). Shweta can meet bedside with pt and KRAIG tomorrow Sat 09/10 around 1230 bedside to assess and answer questions. NISSA updated KRAIG Kwong bedside and provided the contact info and brochure and [facility] very appreciative. KRAIG Kwong still hopeful to get pt to [facility] this weekend but aware pt will need private caregiver in the near future anyways, whether right at d/c to home or after SNF. [facility] holding an admit spot for pt tomorrow Friday. Plan: NISSA to follow closely for [facility] vs home and bedside assessment by Shweta at [facility] tomorrow Sat around 1230. SW to keep Hospice and [facility] updated. RAFAEL Allred
[2025-09-09 12:23] VITALS: BP 100/71; PULSE 101; RESP 22; TEMP 36; O2SAT 91
--- NOTE | 2025-09-09 14:09 | P.DS_ITS ---
History of Present Illness History of Present Illness Date Patient Seen: 09/09/25 Time Patient Seen: 14:09 Chief complaint: on new medication feels weak sob cant sleep Narrative: Pt adequately diuresed feeling ready for discharge discussed options he is certainly not in shape to go home he is not interested in hospice however his condition is not safe for going home on his own. He continues to be very deconditioned and has much difficulty with swallowing even small sips of water. Discussed options with him and KRAIG Kwong he is adamant regarding remaining full code however he is also refusing to work with therapy and his oral intake has been minimal. Will plan on discharge to [facility] and close f/up as outpt. Discharge Providers Provider Date of admission: 09/04/25 15:54 Discharge Date: 09/09/25 Primary care physician: Jairo Wang MD Consults: 09/04/25 16:02 Consult to Discharge Planning Routine Comment: Consult to Occupational Therapy Evaluate & Treat Comment: Physician Instructions: Evaluate and treat Consult to Physical Therapy Evaluate & Treat Comment: Physician Instructions: Evaluate and Treat 09/05/25 05:40 Consult to Speech Therapy Evaluate & Treat Comment: patient aspirated on water Physician Instructions: Evaluate and treat 09/06/25 15:15 Consult to Dietitian, Adult Routine Comment: Reason For Exam: Wound, poor intake Consult to Wound Care Routine Comment: Consulting Provider: [facility] 09/09/25 09:57 Consult to Occupational Therapy Evaluate & Treat Comment: pt refusing hospice wants rehab Physician Instructions: Evaluate and treat Consult to Physical Therapy Evaluate & Treat Comment: pt refusing hospice wants rehab Physician Instructions: Evaluate and Treat Consult to Speech Therapy Evaluate & Treat Comment: pt refusing hospice wants rehab Physician Instructions: Evaluate and treat Discharge provider: Jairo Wang MD Summary Hospital Course Discharge Diagnosis: #Acute respiratory failure with hypoxemia secondary to #acute on chronic systolic and diastolic heart failure due in part to #severe aortic stenosis resulting in #elevated troponins and BNP #AFib with AVR #Sacral pressure ulcer stage 2 both buttocks #failure to thrive #severe protein malnutrition #dysphagia severe with dysarthria #Neutrophilia Hospital Course: Mr. Bledsoe is a pleasant elder well known to our service who lives alone in the area without family. He has been experiencing marked decline over the last several months with decreased oral intake and worsening functional status, with central issue of known heart failure and severe aortic stenosis not amenable to repair. He was admitted to with acute respiratory and heart failure as well as new afib with RVR. He was converted over and diuresed however dysphagia is a problem as well as general deconditioning and failure to thrive. He has been taking megestrol for appetite stimulation without dramatic effect. He has prominent pressure ulcers on his buttocks and is not able to shift himself without assistance. After discussion of options with patient who remains grossly decisional he declines home hospice and desires rehab. And on discharge to [facility] on encouraged to work with all therapy modalities continue dysphagia diet clear liquids encourage oral intake. Status at Discharge Cognitive/behavioral status at discharge: at baseline, oriented Functional status at discharge: bed bound Overall status at discharge: patient is not back to baseline Time Spent with Patient Time spent: Greater than 30 minutes Exam Vital Signs (past 8 hours): - 09/09/25 08:00 09/09/25 12:23 Temperature 97.0 F L 96.8 F L Pulse Rate 62 101 H Respiratory Rate 20 22 Blood Pressure 113/78 100/71 Pulse Oximetry 90 L 91 Oxygen Flow Rate 2 2 Fraction of Inspired Oxygen 32 SaO2/FiO2 Ratio 303 Oxygen Delivery Method Nasal Cannula Oxygen Flow Rate 2 Narrative Exam Narrative: cachectic elder laying in hospital bed with [facility] at bedside Const Other: well developed poorly nourished temporal wasting Resp Other: junky cough but generally clear to auscultation - on 1L of O2 via NC for comfort but does not really desat off it Cardio Other: regular rate, prominent ejection squeak minimal pedal edema GI Other: soft nontdenr minimal bowel sounds Skin Other: extensive stage 2 buttocks pressure ulcerations Neuro Other: alert oriented conversant but increasingly drowsy Objective Labs 09/09/25 06:22 09/09/25 06:22 Labs: Laboratory Results - last 24 hr 09/09/25 06:22 WBC 8.9 RBC 4.37 L Hgb 14.5 Hct 44.1 MCV 101.0 H MCH 33.3 MCHC 32.9 RDW 16.7 H Plt Count 206 Neut % (Auto) 88.4 H Lymph % (Auto) 4.8 L [place] % (Auto) 6.2 Eos % (Auto) 0.0 L Baso % (Auto) 0.6 Neut # (Auto) 7900 H Lymph # (Auto) 400 L [place] # (Auto) 600 Eos # (Auto) 0 Baso # (Auto) 100 Sodium 133 L Potassium 4.3 Chloride 100 Carbon Dioxide 28 BUN 45 H Creatinine 1.03 Estimated GFR > 60 BUN/Creatinine Ratio 43.7 H Glucose 129 H Calcium 8.2 L Total Bilirubin 0.8 AST 55 ALT 34 Alkaline Phosphatase 222 H Total Protein 6.1 L Albumin 3.0 L Globulin 3.1 Albumin/Globulin Ratio 1.0 [facility] Medical History (Updated 09/07/25 @ 15:52 by Santi Whittington MD) Hypertension Social History household members: none Smoking Status: Never smoker alcohol intake: current Discharge Assessment & Plan Assessment and Plan Assessment: #Acute respiratory failure with hypoxemia secondary to #acute on chronic systolic and diastolic heart failure due in part to #severe aortic stenosis resulting in #elevated troponins and BNP Although Mr. Zhangselu is much improved with diuresis, his EF remains 15% per echo with severe aortic stenosis not amenable to repair. Troponins and BNP were elevated on admission due to strain. He has been diuresed aggressively and is currently pretty dry his oral intake has not been great. Transition to oral lasix - continue amiodarone and metoprolol. #AFib with AVR Resolved. Certainly at risk for repeat. Continue Coreg outpatient Eliquis, with amio and metoprolol #Sacral pressure ulcer stage 2 both buttocks Possible Judy will continue wound care consult patient is generally not able to care for himself at this point, will need continued follow-up keep area offloaded #failure to thrive #severe protein malnutrition #dysphagia severe with dysarthria very concerning per speech therapy for aspiration he says he is doing better still very concerning - primary issue is underfeeding leading to gross deconditioning - monitor for aspiration use dysphagia/liquid diet with monitoring, continue to work with speech therapy and continue megestrol appetite stimulant. #Neutrophilia WBCs are stable however neutrophils are up mildly - vitals are stable Dispo: discharge to [facility] to work with therapy prior to going home diet: clears/dysphagia POA: [facility] [phone] Code: Full DVT: Mert PCP: Felipe Discharge Plan Discharge Plan Patient Disposition: SNF Transfer to: [facility] Discharge orders & Medications Prescriptions: New acetaminophen 325 mg Tablet 650 mg PO Q6H PRN (Reason: Fever/Mild Pain (1-3)) 30 Days Qty: 30 0RF albuterol sulfate 2.5 mg /3 mL (0.083 %) Solution For Nebulization 2.5 mg INH Q6H PRN (Reason: Shortness Of Breath) Qty: 20 0RF albuterol sulfate 2.5 mg /3 mL (0.083 %) Solution For Nebulization 2.5 mg INH [id number] PRN (Reason: Shortness Of Breath) Qty: 20 0RF hydrocodone-acetaminophen 5-325 mg Tablet 1 tab PO Q4H PRN (Reason: Pain, Moderate (4-6)) Qty: 30 0RF lorazepam 0.5 mg Tablet 0.5 mg PO Q6HR PRN (Reason: Anxiety) Qty: 30 0RF calcium carbonate 200 mg calcium (500 mg) Tablet,Chewable 1,000 mg PO Q4HR PRN (Reason: Dyspepsia) Qty: 20 0RF fluticasone propionate 50 mcg/actuation [place],Suspension 1 spray intranasal DAILY Qty: 20 0RF Continued albuterol sulfate 90 mcg/actuation HFA aerosol inhaler 1 - 2 puff INHALATION Q4H PRN (Reason: wheezing) amiodarone 100 mg tablet 50 mg PO BID metoprolol succinate 25 mg tablet extended release 24 hr 50 mg PO DAILY Qty: 30 0RF clopidogrel 75 mg tablet 75 mg PO DAILY furosemide 20 mg tablet 20 mg PO DAILY megestrol 20 mg tablet 20 mg PO DAILY Eliquis 2.5 mg tablet 2.5 mg PO BID Discontinued enalapril maleate 20 mg tablet 20 mg PO DAILY spironolactone 25 mg tablet 25 mg PO DAILY Qty: 30 0RF metoprolol succinate 50 mg tablet extended release 24 hr 50 mg PO DAILY Follow up/Referrals: Jairo Wang MD [Primary Care Provider, Family Practice] Diet/Activity/Treatments Liquid consistency: Normal/Thin Food texture: Soft Diet comment: Thin (IDDSI 0) Soft & Bite-sized (IDDSI 6) Oxygen: 2L NC continuous Other treatments: Thin (IDDSI 0) Soft & Bite-sized (IDDSI 6. Medication As Tolerated,Whole in Carrier,Crushed in Carrier. Upright at 90 Degrees,Alternate Liquids/Solids, Small Skin/Wound/Dressing Care Skin care: stage II pressure ulcers involving both buttocks Dressing: stage II pressure ulcers involving both buttocks with no sign of active infection. Recommend daily dressing changes with the Allevyn, pressure offloading, protein supplementation, follow up at wound center after discharge. Special Rehabilitation Services Reason for rehabilitation: Recovery r/t decondition Rehab type: Physical therapy, Occupational therapy and Speech therapy Visit Report/Discharge Packet Stand Alone Forms: Patient Portal/API Discharge Data Primary Care Provider: Jairo Wang
--- NOTE | 2025-09-09 14:20 | SLP.IPNOTE ---
DRAW FURNACE TENDER received new orders for Pt d/t dysphagia. Pt was d/c from ST d/t Pt having completed MBS and put on safest and most efficient least restrictive diet. Please see MBS results. Pt has been educated on reason for diet recommendations, safe swallowing strategies, and aspiration risks.
--- NOTE | 2025-09-09 14:46 | OT.IPNOTE ---
Pt not appropriate for OT services at this time and will need 24/7 assist at home if going on hospice. Discharge Ot eval orders.
--- NOTE | 2025-09-09 15:40 | PC.NURSE ---
Discharge instructions reviewed. Nursing report given to [facility] nurse. PIV and telemetry removed. Pt discharged with [facility] staff and pt's friend.
--- NOTE | 2025-09-09 15:53 | PT-IP ANOTE ---
PT eval order received. Was about to talk to pt when the doctor came in. Talked to doctor regarding PT orders and stated that he wants pt to do PT. informed the doctor regarding medical stability concerns due to EF of ~ 15%. pt's friends in room and also expressed confusion. Left pt with the doctor. Checked with case hardener and doctor also present. stated that pt will be transferring today and no PT needed. will d/c PT eval order.
== END 2025-09-09 15:35 | DRG 291 ==
LOC: ED 12:41 → AC 15:55
PROVIDERS: Family Medicine; Admitting Provider Family Medicine; Emergency Provider Student in an Organized Health Care Education/Training Program; PCP Family Medicine; Referring Provider Student in an Organized Health Care Education/Training Program; Visit Provider Family Medicine
DX: I11.0 Hypertensive heart disease with heart failure (principal); E43 Unspecified severe protein-calorie malnutrition; J96.01 Acute respiratory failure with hypoxia; I50.43 Acute on chronic combined systolic (congestive) and diastolic (congestive) heart failure; I25.10 Atherosclerotic heart disease of native coronary artery without angina pectoris; I48.91 Unspecified atrial fibrillation; I35.0 Nonrheumatic aortic (valve) stenosis; I73.9 Peripheral vascular disease, unspecified; B37.2 Candidiasis of skin and nail; R62.7 Adult failure to thrive; R13.10 Dysphagia, unspecified; L89.322 Pressure ulcer of left buttock, stage 2; L89.312 Pressure ulcer of right buttock, stage 2; R79.89 Other specified abnormal findings of blood chemistry; R47.1 Dysarthria and anarthria; D72.829 Elevated white blood cell count, unspecified; Z95.5 Presence of coronary angioplasty implant and graft; Z79.01 Long term (current) use of anticoagulants; Z68.23 Body mass index [BMI] 23.0-23.9, adult
CPT/HCPCS: 36415; 71045; 74230; 80048; 80053; 81001; 82550; 83605; 83735; 83880; 84484; 85025; 85610; 87070; 87075; 87205; 92526; 92610; 92611; 93005; 93010; 93306; 94640; 94760; 94762; 94799; 96374; 97129; 97166; 97530; 99233; 99284; 99285; A9270; J1938; J7613